=== PATIENT | male | born 1945 | race Caucasian/White ===

== ENCOUNTER 2020-09-14 12:43 | Emergency (ER) | payer MEDICARE, OTHER ==
[~2020-09-14] VITALS: Ht 175.3 cm; Wt 72.6 kg
--- NOTE | 2020-09-14 12:58 | ED General ---
General Chief Complaint: Fever-Adult/Adol Stated Complaint: DIARRHEA | FEVER | CHILLS | COUGH | NAUSEA History of Present Illness Date Seen by Provider: Sep 14, 2020 Time Seen by Provider: 12:56 Initial Comments 74-year-old male presents with fever, chills, cough, nausea, diarrhea. Patient reports that he has had diarrhea for 4 days. Feels like his symptoms are now moving little bit to his chest. Patient had a [place] shot in March of both doses. Reports that there are her individuals that are positive for coronavirus in his household. Patient reports that he is immunocompromised with a kidney transplant 5 years ago. He denies any shortness of breath. No other systemic complaints Allergies and Home Medications Allergies Coded Allergies: oxycodone (Verified Allergy, Unknown, 09/14/20) Home Medications Ondansetron 4 Mg Tab.rapdis, 4 MG PO Q6H PRN for NAUSEA/VOMITING Prescribed by: GABRIEL PERKINS on 09/14/20 1401 Patient Home Medication List Home Medication List Reviewed: Yes Review of Systems Review of Systems Constitutional: chills, fever, malaise EENTM: no symptoms reported Respiratory: cough; No short of breath Cardiovascular: No chest pain, No palpitations Gastrointestinal: No abdominal pain; diarrhea, nausea Genitourinary: see HPI Musculoskeletal: no symptoms reported Skin: no symptoms reported Psychiatric/Neurological: No Symptoms Reported Hematologic/Lymphatic: See HPI Immunological/Allergic: see HPI, transplant Physical Exam Vital Signs Vital Signs - First Documented 09/14/20 12:55 Temp 36.5 Pulse 65 Resp 18 B/P (MAP) 93/61 (72) Pulse Ox 98 O2 Delivery Room Air Capillary Refill : Height, Weight, BMI Height: '" Weight: lbs. oz. 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 Skin: Normal Color, Warm/Dry Focused Exam Lactate Level 09/14/20 13:01: Lactic Acid Level 2.03*H Lactic Acid Level Laboratory Tests Test 09/14/20 13:01 Lactic Acid Level 2.03 MMOL/L (0.50-2.00) *H Progress/Results/Core Measures Suspected Sepsis SIRS Temperature: Pulse: Respiratory Rate: Laboratory Tests 09/14/20 13:01: White Blood Count 5.4 Blood Pressure / Mean: 09/14/20 13:01: Lactic Acid Level 2.03*H Laboratory Tests 09/14/20 13:01: Creatinine 1.47H, Platelet Count 275, Total Bilirubin 0.2 Results/Orders Lab Results Laboratory Tests Test 09/14/20 13:01 Range/Units White Blood Count 5.4 4.3-11.0 10^3/uL Red Blood Count 4.52 4.35-5.85 10^6/uL Hemoglobin 11.9 L 13.3-17.7 G/DL Hematocrit 38 L 40-54 % Mean Corpuscular Volume 83 80-99 FL Mean Corpuscular Hemoglobin 26 25-34 PG Mean Corpuscular Hemoglobin Concent 32 32-36 G/DL Red Cell Distribution Width 15.5 H 10.0-14.5 % Platelet Count 275 130-400 10^3/uL Mean Platelet Volume 9.2 7.4-10.4 FL Immature Granulocyte % (Auto) 0 % Neutrophils (%) (Auto) 53 42-75 % Lymphocytes (%) (Auto) 35 12-44 % Monocytes (%) (Auto) 11 0-12 % Eosinophils (%) (Auto) 0 0-10 % Basophils (%) (Auto) 0 0-10 % Neutrophils # (Auto) 2.9 1.8-7.8 X 10^3 Lymphocytes # (Auto) 1.9 1.0-4.0 X 10^3 Monocytes # (Auto) 0.6 0.0-1.0 X 10^3 Eosinophils # (Auto) 0.0 0.0-0.3 10^3/uL Basophils # (Auto) 0.0 0.0-0.1 10^3/uL Immature Granulocyte # (Auto) 0.0 0.0-0.1 10^3/uL Sodium Level 133 L 135-145 MMOL/L Potassium Level 4.5 3.6-5.0 MMOL/L Chloride Level 100 98-107 MMOL/L Carbon Dioxide Level 22 21-32 MMOL/L Anion Gap 11 5-14 MMOL/L Blood Urea Nitrogen 17 7-18 MG/DL Creatinine 1.47 H 0.60-1.30 MG/DL Estimat Glomerular Filtration Rate 47 BUN/Creatinine Ratio 12 Glucose Level 124 H 70-105 MG/DL Lactic Acid Level 2.03 *H 0.50-2.00 MMOL/L Calcium Level 8.8 8.5-10.1 MG/DL Corrected Calcium 9.0 8.5-10.1 MG/DL Total Bilirubin 0.2 0.1-1.0 MG/DL Aspartate Amino Transf (AST/SGOT) 50 H 5-34 U/L Alanine Aminotransferase (ALT/SGPT) 46 0-55 U/L Alkaline Phosphatase 86 40-136 U/L Total Protein 6.8 6.4-8.2 GM/DL Albumin 3.8 3.2-4.5 GM/DL Lipase 41 8-78 U/L My Orders Orders - PERKINS,GABRIEL L DO Cbc With Automated Diff (09/14/20 12:59) Comprehensive Metabolic Panel (09/14/20 12:59) Lactic Acid Analyzer (09/14/20 12:59) Lipase (09/14/20 12:59) Ua Culture If Indicated (09/14/20 12:59) Crp Fs (09/14/20 12:59) Covid 19 Inhouse Test (09/14/20 12:59) Acute Abd Series (09/14/20 12:59) Ondansetron Injection (Zofran Injectio (09/14/20 13:00) Lactated Ringers (Lr 1000 Ml Iv Solution (09/14/20 12:59) Famotidine Injection (Pepcid Injection) (09/14/20 12:59) Medications Given in ED Current Medications Medications Dose Ordered Sig/Corry Route Start Time Stop Time Status Last Admin Dose Admin Ondansetron HCl 4 mg ONCE ONCE IVP 09/14/20 13:00 09/14/20 13:03 DC 09/14/20 13:09 4 MG Vital Signs/I&O 09/14/20 09/14/20 12:55 14:32 Temp 36.5 Pulse 65 63 Resp 18 18 B/P (MAP) 93/61 (72) 105/78 Pulse Ox 98 97 O2 Delivery Room Air Room Air Capillary Refill : Progress Note : Progress Note Patient with likely Covid 19 infection. Patient's vital signs and labs are stable. At this time there is no indication for admission. He should drink plenty of fluids, get plenty of rest. Follow-up with his primary care provider in a couple days for recheck of today's symptoms. Return the ER as needed. Patient is Covid test is pending at discharge and we will call him with result. Diagnostic Imaging Diagonstic Imaging: Xray Plain Films/CT/US/NM/MRI: chest, abdomen Comments CUTE ABD SERIES INDICATION: Nausea, vomiting, diarrhea, cough. FINDINGS: Postsurgical changes in the chest are present. The heart size is enlarged, but no overt failure pattern or vascular congestion. Vascular stenting in the left arm noted. No effusion or pneumothorax. There are clips in the right pelvis. The bowel gas pattern is normal. The fecal load is not pathologic. No air-fluid levels or free gas. IMPRESSION: Upper limits heart size and post-interventional changes as described, but no acute appearing abnormalities identified. Departure Impression Primary Impression: Viral syndrome Disposition: 01 HOME, SELF-CARE Condition: Stable Departure-Patient Inst. Referrals: NO,LOCAL PHYSICIAN (PCP/Family) Primary Care Physician Patient Instructions: COVID-19 (DC), Viral Syndrome (DC) Add. Discharge Instructions: Drink plenty of fluids and get plenty rest Return to the ER if you develop shortness of breath or other concern Follow-up with your primary care provider and proximally 1 week for recheck of today's symptoms or sooner if symptoms continue to worsen All discharge instructions reviewed with patient and/or family. Voiced understanding. Scripts Ondansetron (Ondansetron Odt) 4 Mg Tab.rapdis 4 MG PO Q6H PRN for NAUSEA/VOMITING, #20 TAB 0 Refills Prov: GABRIEL PERKINS DO 09/14/20 GABRIEL PERKINS DO Sep 14, 2020 12:58
[2020-09-14] MEDS ORDERED: FAMOTIDINE 20MG/2ML IV (PEPCID) IV STA (12:59)
[2020-09-14] MEDS ORDERED: LACTATED RINGERS 1,000 ML IV STA (12:59)
[2020-09-14] MEDS ORDERED: ONDANSETRON 4 MG/2 ML (SDV) Z0FRAN IVP ONE (13:00)
[2020-09-14 13:10] LABS: BASOPHILS % (AUTO) 0 % (0-10); EOSINOPHILS % (AUTO) 0 % (0-10); HEMATOCRIT 38 % (40-54); HEMOGLOBIN 11.9 G/DL (13.3-17.7); LYMPHOCYTES % (AUTO) 35 % (12-44); MEAN CORPUSCULAR HEMOGLOBIN 26 PG (25-34); MEAN CORPUSCULAR HGB CONC 32 G/DL (32-36); MEAN CORPUSCULAR VOLUME 83 FL (80-99); MEAN PLATELET VOLUME 9.2 FL (7.4-10.4); MONOCYTES % (AUTO) 11 % (0-12); NEUTROPHILS % (AUTO) 53 % (42-75); PLATELET COUNT 275 10^3/uL (130-400); WHITE BLOOD COUNT 5.4 10^3/uL (4.3-11.0)
[2020-09-14 13:11] LABS: LYMPHOCYTES # (AUTO) 1.9 X 10^3 (1.0-4.0); MONOCYTES # (AUTO) 0.6 X 10^3 (0.0-1.0); NEUTROPHILS # (AUTO) 2.9 X 10^3 (1.8-7.8)
[2020-09-14 13:26] LABS: ALBUMIN 3.8 GM/DL (3.2-4.5); BILIRUBIN,TOTAL 0.2 MG/DL (0.1-1.0); CALCIUM 8.8 MG/DL (8.5-10.1); CREATININE SERUM 1.47 MG/DL (0.60-1.30); POTASSIUM 4.5 MMOL/L (3.6-5.0); TOTAL PROTEIN 6.8 GM/DL (6.4-8.2)
--- NOTE | 2020-09-14 13:50 | Diagnostic Imaging Report ---
INDICATION: Nausea, vomiting, diarrhea, cough. FINDINGS: Postsurgical changes in the chest are present. The heart size is enlarged, but no overt failure pattern or vascular congestion. Vascular stenting in the left arm noted. No effusion or pneumothorax. There are clips in the right pelvis. The bowel gas pattern is normal. The fecal load is not pathologic. No air-fluid levels or free gas. IMPRESSION: Upper limits heart size and post-interventional changes as described, but no acute appearing abnormalities identified. Dictated by: Dictated on workstation # [id number]
[2020-09-14] MEDS ORDERED: ONDA4TAB11 PO (14:01)
[2020-09-14 14:32] VITALS: BP 105/78
== END 2020-09-14 14:35 | disposition home or self-care (01) ==
LOC: ER FS 12:47
DX: U07.1 COVID-19 (principal)
CPT/HCPCS: 36415; 74022; 80053; 83605; 83690; 85025; 86141; 87636

== ENCOUNTER 2020-09-18 18:56 | Emergency (ER) | payer MEDICARE ==
[~2020-09-18] VITALS: Ht 179 cm; Wt 72.6 kg
[~2020-09-18 18:56] MED LIST: ONDA4TAB11 PO
[2020-09-18] MEDS ORDERED: NS IV 1000 ML 1,000 ML IV SCH (19:15)
[2020-09-18] MEDS ORDERED: ONDANSETRON 4 MG/2 ML (SDV) Z0FRAN IVP ONE (19:15)
--- NOTE | 2020-09-18 19:20 | ED General ---
General Chief Complaint: Abdominal/GI Problems Stated Complaint: VOMITING, DIARRHEA, CHILLS, COVID POSITIVE Source of Information: Patient Exam Limitations: No Limitations History of Present Illness Date Seen by Provider: Sep 18, 2020 Time Seen by Provider: 19:05 Initial Comments Patient is a 74-year-old renal transplant patient, 5 years, who presents to the emergency department with a chief complaint of abdominal pain, nausea, vomiting, diarrhea. Patient states that he is Covid positive was diagnosed almost 2 weeks ago. He states that for the last 3 or 4 days he has been getting sicker. Today he had worsening diarrhea and vomiting. He is taken some Zofran without any relief of symptoms. He states he is not been running fever. He reports feeling like he might pass out and that his blood pressure has been low today. He states he had blood pressures in the 80s systolic up to 130 systolic. He feels generally weak. He is Covid vaccinated, got Moderna vaccination in February 2020. Patient denies chest pain, shortness of breath. No sore throat, runny nose or congestion. Follows with [facility] for his renal transplant. All other review of systems reviewed and negative except as stated above. Timing/Duration: 3-4 Days Severity: Moderate Modifying Factors: improves with Immobilization; worse with Movement Associated Systoms: Malaise, Nausea/Vomiting, Weakness Allergies and Home Medications Allergies Coded Allergies: oxycodone (Verified Allergy, Unknown, 09/14/20) Home Medications Ondansetron 4 Mg Tab.rapdis, 4 MG PO Q6H PRN for NAUSEA/VOMITING Prescribed by: GABRIEL PERKINS on 09/14/20 1401 Promethazine HCl 25 Mg Tablet, 25 MG PO Q6H PRN for NAUSEA/VOMITING Prescribed by: DANIELLE STOCK on 09/18/20 2136 Patient Home Medication List Home Medication List Reviewed: Yes Review of Systems Review of Systems Constitutional: see HPI EENTM: no symptoms reported Respiratory: no symptoms reported Cardiovascular: no symptoms reported Gastrointestinal: abdominal pain, diarrhea, loss of appetite, nausea, vomiting Genitourinary: no symptoms reported Musculoskeletal: no symptoms reported Skin: no symptoms reported Psychiatric/Neurological: Weakness (generalized), Other (feels near syncopal;) All Other Systems Reviewed Negative Unless Noted: Yes Past Qfeahzr-Xsbaqe-Lpwvvo Hx Past Medical History Surgery/Hospitalization HX: Kidney transplant 5 years ago Physical Exam Vital Signs Vital Signs - First Documented 09/18/20 19:01 Temp 36.6 Pulse 75 Resp 20 B/P (MAP) 101/68 (79) Pulse Ox 100 O2 Delivery Room Air Capillary Refill : Height, Weight, BMI Height: '" Weight: lbs. oz. kg; 23.00 BMI Method: General Appearance: WD/WN, Mild Distress (nausea, dry heaving) Eyes: Bilateral Eye Normal Inspection, Bilateral Eye PERRL HEENT: PERRL/EOMI Neck: Normal Inspection Respiratory: Lungs Clear, Normal Breath Sounds, No Accessory Muscle Use, No Respiratory Distress Cardiovascular: Regular Rate, Rhythm (60's), Normal Peripheral Pulses Gastrointestinal: Non Tender, Soft, Abnormal Bowel Sounds (hyperactive) Extremity: Normal Capillary Refill, Normal Inspection, Normal Range of Motion, Non Tender, No Calf Tenderness Neurologic/Psychiatric: Alert, Oriented x3, No Motor/Sensory Deficits, Normal 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, 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 Skin: Normal Color, Warm/Dry Focused Exam Lactate Level 09/18/20 19:18: Lactic Acid Level 1.82 Lactic Acid Level Laboratory Tests Test 09/18/20 19:18 Lactic Acid Level 1.82 MMOL/L (0.50-2.00) Progress/Results/Core Measures Suspected Sepsis SIRS Temperature: Pulse: Respiratory Rate: Laboratory Tests 09/18/20 19:18: White Blood Count 8.0 Blood Pressure / Mean: 09/18/20 19:18: Lactic Acid Level 1.82 Laboratory Tests 09/18/20 19:18: Creatinine 1.47H, INR Comment 1.0, Platelet Count 273, Total Bilirubin 0.5 Results/Orders Lab Results Laboratory Tests Test 09/18/20 19:18 09/18/20 19:38 Range/Units White Blood Count 8.0 4.3-11.0 10^3/uL Red Blood Count 5.00 4.30-5.52 10^6/uL Hemoglobin 12.8 L 13.3-17.7 g/dL Hematocrit 41 40-54 % Mean Corpuscular Volume 82 80-99 fL Mean Corpuscular Hemoglobin 26 25-34 pg Mean Corpuscular Hemoglobin Concent 31 L 32-36 g/dL Red Cell Distribution Width 14.8 H 10.0-14.5 % Platelet Count 273 130-400 10^3/uL Mean Platelet Volume 9.4 9.0-12.2 fL Immature Granulocyte % (Auto) 1 % Neutrophils (%) (Auto) 60 42-75 % Lymphocytes (%) (Auto) 30 12-44 % Monocytes (%) (Auto) 9 0-12 % Eosinophils (%) (Auto) 1 0-10 % Basophils (%) (Auto) 0 0-10 % Neutrophils # (Auto) 4.8 1.8-7.8 10^3/uL Lymphocytes # (Auto) 2.4 1.0-4.0 10^3/uL Monocytes # (Auto) 0.7 0.0-1.0 10^3/uL Eosinophils # (Auto) 0.1 0.0-0.3 10^3/uL Basophils # (Auto) 0.0 0.0-0.1 10^3/uL Immature Granulocyte # (Auto) 0.1 0.0-0.1 10^3/uL Prothrombin Time 13.4 12.2-14.7 SEC INR Comment 1.0 0.8-1.4 Activated Partial Thromboplast Time 34 24-35 SEC Sodium Level 134 L 135-145 MMOL/L Potassium Level 4.2 3.6-5.0 MMOL/L Chloride Level 99 98-107 MMOL/L Carbon Dioxide Level 22 21-32 MMOL/L Anion Gap 13 5-14 MMOL/L Blood Urea Nitrogen 17 7-18 MG/DL Creatinine 1.47 H 0.60-1.30 MG/DL Estimat Glomerular Filtration Rate 47 BUN/Creatinine Ratio 12 Glucose Level 106 H 70-105 MG/DL Lactic Acid Level 1.82 0.50-2.00 MMOL/L Calcium Level 9.5 8.5-10.1 MG/DL Corrected Calcium 9.6 8.5-10.1 MG/DL Total Bilirubin 0.5 0.1-1.0 MG/DL Aspartate Amino Transf (AST/SGOT) 51 H 5-34 U/L Alanine Aminotransferase (ALT/SGPT) 45 0-55 U/L Alkaline Phosphatase 79 40-136 U/L C-Reactive Protein High Sensitivity 1.62 H 0.00-0.50 MG/DL Total Protein 7.8 6.4-8.2 GM/DL Albumin 3.9 3.2-4.5 GM/DL Procalcitonin 0.10 H <0.10 NG/ML Urine Color YELLOW Urine Clarity CLEAR Urine pH 8.5 5-9 Urine Specific [place] 1.015 L 1.016-1.022 Urine Protein TRACE H NEGATIVE Urine Glucose (UA) NEGATIVE NEGATIVE Urine Ketones NEGATIVE NEGATIVE Urine Nitrite NEGATIVE NEGATIVE Urine Bilirubin NEGATIVE NEGATIVE Urine Urobilinogen 0.2 < = 1.0 MG/DL Urine Leukocyte Esterase NEGATIVE NEGATIVE Urine RBC (Auto) NEGATIVE NEGATIVE Urine RBC NONE /HPF Urine WBC NONE /HPF Urine Crystals PRESENT H /LPF Urine Amorphous Sediment FEW LALO PHOSPHATE H /LPF Urine Bacteria NEGATIVE /HPF Urine Casts NONE /LPF Urine Mucus NEGATIVE /LPF Urine Culture Indicated NO My Orders Orders - DANIELLE STOCK MD Blood Culture (09/18/20 19:14) Sputum Culture (09/18/20 19:14) Urinalysis (09/18/20 19:14) Urine Culture (09/18/20 19:14) Protime With Inr (09/18/20 19:14) Partial Thromboplastin Time (09/18/20 19:14) Chest 1 View, Ap/Pa Only (09/18/20 19:14) Ed Iv/Invasive Line Start (09/18/20 19:14) Ed Iv/Invasive Line Start (09/18/20 19:14) Vital Signs Adult Sepsis Patie Q15M (09/18/20 19:14) O2 (09/18/20 19:14) Remove Rings In Anticipation O (09/18/20 19:14) Lactic Acid Analyzer (09/18/20 19:14) Ondansetron Injection (Zofran Injectio (09/18/20 19:15) Ns Iv 1000 Ml (Sodium Chloride 0.9%) (09/18/20 19:15) Hs C Reactive Protein (09/18/20 19:14) Procalcitonin (Pct) (09/18/20 19:14) Ondansetron Injection (Zofran Injectio (09/18/20 19:29) Promethazine Injection (Phenergan Injec (09/18/20 20:45) Ns Iv 500 Ml (Sodium Chloride 0.9%) (09/18/20 21:00) Medications Given in ED Current Medications Medications Dose Ordered Sig/Corry Route Start Time Stop Time Status Last Admin Dose Admin Ondansetron HCl 8 mg ONCE ONCE IVP 09/18/20 19:15 09/18/20 19:16 DC 09/18/20 19:31 8 MG Promethazine HCl 25 mg ONCE ONCE IVP 09/18/20 20:45 09/18/20 20:46 DC 09/18/20 20:56 25 MG Vital Signs/I&O 09/18/20 19:01 Temp 36.6 Pulse 75 Resp 20 B/P (MAP) 101/68 (79) Pulse Ox 100 O2 Delivery Room Air Capillary Refill : Progress Note : Time: 20:42 Progress Note Reevaluated the patient, he states his nausea is starting to "kick up again". He has had 8 of Zofran. He has had a liter of fluids. Labs have been reviewed and are stable/at his baseline. Patient will be given another 500 cc of normal saline with 25 mg of Phenergan. He is not hypoxic. His blood pressure is good. He is not tachycardic. He has no concerning sepsis findings at this point. 2151 Feels better and ready for discharge Diagnostic Imaging Diagonstic Imaging: Xray Plain Films/CT/US/NM/MRI: chest Comments [facility] [place], [place] NAME: SOLIS GUTIERRES [facility] REC#: [id number] PT STATUS: REG ER : 1945 PHYSICIAN: DANIELLE STOCK MD ADMIT DATE: 09/18/20/ER Draft Date of Exam:09/18/20 CHEST 1 VIEW, AP/PA ONLY EXAMINATION: Chest radiograph, portable AP view. DATE: 09/18/2020 7:55 PM INDICATION: 74-year-old male, sepsis. COMPARISON: Acute abdominal series radiographs September 14, 2020. FINDINGS: Stable overall appearance of the cardiomediastinal silhouette. There is no identified pneumothorax. There is no large pleural effusion. There is no identified focal airspace consolidation. There is a stent graft overlying the left proximal upper extremity. IMPRESSION: No identified acute cardiopulmonary abnormality. Dictated on workstation # [id number] Dict: [id number] Trans: 09/18/[address] [place] [address] [id number] Interpreted by: JED PETTY MD Electronically signed by: Departure Impression Primary Impression: COVID-19 Additional Impression: Gastroenteritis Disposition: 01 HOME, SELF-CARE Condition: Stable Departure-Patient Inst. Decision time for Depature: 21:36 Referrals: NO,LOCAL PHYSICIAN (PCP/Family) Primary Care Physician Patient Instructions: COVID-19 (DC) Add. Discharge Instructions: Drink plenty of fluids to stay well-hydrated. You can try [id number] antidiarrheal medication to try and slow down your diarrhea. I have sent a prescription to your pharmacy for Phenergan. This medication can make you sleepy. Take this every 6 hours as needed for nausea and vomiting. Follow-up with your primary care physician. Come back to the emergency d epartment for any new, concerning or emergent complaints. Scripts Promethazine HCl (Promethazine Tablet) 25 Mg Tablet 25 MG PO Q6H PRN for NAUSEA/VOMITING, #15 TAB Prov: DANIELLE STOCK MD 09/18/20 DANIELLE STOCK MD Sep 18, 2020 19:20
[2020-09-18] MEDS ORDERED: ONDANSETRON 4 MG/2 ML (SDV) Z0FRAN ONE (19:29)
[2020-09-18 19:34] LABS: BASOPHILS % (AUTO) 0 % (0-10); EOSINOPHILS # (AUTO) 0.1 10^3/uL (0.0-0.3); EOSINOPHILS % (AUTO) 1 % (0-10); HEMATOCRIT 41 % (40-54); HEMOGLOBIN 12.8 g/dL (13.3-17.7); LYMPHOCYTES # (AUTO) 2.4 10^3/uL (1.0-4.0); LYMPHOCYTES % (AUTO) 30 % (12-44); MEAN CORPUSCULAR HEMOGLOBIN 26 pg (25-34); MEAN CORPUSCULAR HGB CONC 31 g/dL (32-36); MEAN CORPUSCULAR VOLUME 82 fL (80-99); MEAN PLATELET VOLUME 9.4 fL (9.0-12.2); MONOCYTES # (AUTO) 0.7 10^3/uL (0.0-1.0); MONOCYTES % (AUTO) 9 % (0-12); NEUTROPHILS # (AUTO) 4.8 10^3/uL (1.8-7.8); NEUTROPHILS % (AUTO) 60 % (42-75); PLATELET COUNT 273 10^3/uL (130-400)
[2020-09-18 19:45] LABS: BILIRUBIN,URINE NEGATIVE (NEGATIVE); CLARITY,URINE CLEAR; COLOR,URINE YELLOW; GLUCOSE, URINE (UA) NEGATIVE (NEGATIVE); KETONES,URINE NEGATIVE (NEGATIVE); LEUKOCYTE ESTERASE ,URINE NEGATIVE (NEGATIVE); NITRITE,URINE NEGATIVE (NEGATIVE); PH,URINE 8.5 (5-9); PROTEIN,URINE TRACE (NEGATIVE)
[2020-09-18 19:55] LABS: AMORPHOUS SEDIMENT,UR FEW AMOR PHOSPHATE /LPF; BACTERIA,URINE NEGATIVE /HPF
[2020-09-18 20:03] LABS: PROTHROMBIN TIME PATIENT 13.4 SEC (12.2-14.7)
[2020-09-18 20:04] LABS: ALBUMIN 3.9 GM/DL (3.2-4.5); BILIRUBIN,TOTAL 0.5 MG/DL (0.1-1.0); CALCIUM 9.5 MG/DL (8.5-10.1); CREATININE SERUM 1.47 MG/DL (0.60-1.30); POTASSIUM 4.2 MMOL/L (3.6-5.0); TOTAL PROTEIN 7.8 GM/DL (6.4-8.2)
--- NOTE | 2020-09-18 20:06 | Diagnostic Imaging Report ---
EXAMINATION: Chest radiograph, portable AP view. DATE: 09/18/2020 7:55 PM INDICATION: 74-year-old male, sepsis. COMPARISON: Acute abdominal series radiographs September 14, 2020. FINDINGS: Stable overall appearance of the cardiomediastinal silhouette. There is no identified pneumothorax. There is no large pleural effusion. There is no identified focal airspace consolidation. There is a stent graft overlying the left proximal upper extremity. IMPRESSION: No identified acute cardiopulmonary abnormality. Dictated by: Dictated on workstation # [id number]
[2020-09-18] MEDS ORDERED: PROMETHAZINE INJ 25 MG/ML (PHENERGAN) AMP IVP ONE (20:45)
[2020-09-18] MEDS ORDERED: NS IV 500 ML 500 ML IV SCH (21:00)
[2020-09-18] MEDS ORDERED: PROM25TA14 PO (21:36)
[2020-09-18 21:55] VITALS: BP 102/64
--- OUTSIDE RECORDS SUMMARY | 2020-09-23 10:40 | XMS REPORT | Clinical Summary ---
Author Author [facility] Organization [facility] Address Unknown Phone Unavailable Care Team Providers [facility] Name Role Phone PCP Unavailable Allergies Not on File Medications Not on file Active Problems Not on file Social History Date Tobacco Use Types Packs/Day Years Used Never Assessed Sex Assigned at Date Recorded Not on file Last Filed Vital Signs Not on file Plan of Treatment Not on file Results Not on filefrom Last 3 Months
--- OUTSIDE RECORDS SUMMARY | 2020-09-23 10:41 | XMS REPORT | Clinical Summary ---
Author Author [facility] Organization [facility] Address Unknown Phone Unavailable Care Team Providers Care Night Monitor Name Role Phone Roberta Huang RN Unavailable Unavailable Susie Recinos Unavailable Unavailable Franklyn Dumont RN 2 Unavailable Stanford Hickman DO Unavailable Johanne Veliz MA Unavailable Unavailable Anny Gonzalez RN Unavailable Unavailable Jose Manuel Oseguera MD Unavailable Unavailable Maxine Vallejo PARTS ORDER AND STOCK CLERK-PEDIATRIC SPORTS MEDICINE SPECIALIST Unavailable Taran Greenfield MD Unavailable Gladys Fragoso MD Unavailable Mar Pisano MA Unavailable Unavailable Jackie Ellis PARTS ORDER AND STOCK CLERK-PEDIATRIC SPORTS MEDICINE SPECIALIST Unavailable [phone] Maggie Hagan Unavailable Unavailable Keanu Manzano MD Unavailable Rosario Bass RN Unavailable Unavailable Ciara Ornelas Unavailable Unavailable Nisa Deluna RN Unavailable Unavailable Carmen Padilla MA Unavailable Unavailable Jacob Chavez MD PCP Stanford Hickman [place] [id number] Source Comments Some departments are not documenting in the electronic medical record. If you d o not see the information that you expected, contact Release of Information in [facility] Information Management department at [phone] for further assistan ce in locating additional records.[facility] Allergies Comments Active Allergy Reactions Severity Noted Date Pt was having muscle pain, joint pain and some nausea. Atorvastatin JOINT PAIN Medium 09/11/2020 Severe headaches Oxiconazole HEADACHE Low 04/11/2015 Medications End Date Status Medication Sig Dispensed Refills Start Date Active finasteride (PROSCAR) 5 Take 5 mg by 0 mg tablet mouth daily. Active HYDROcodone/acetaminophen Take 1 Tab by 0 (+) (NORCO) 10/325 mg mouth every 6 tablet hours as needed for Pain Active Efnck-2-QWA-EPA-Fish Oil Take 1,000 mg 0 06/08 (FISH OIL) 1,000 mg (120 by mouth 7 mg-180 mg) cap twice daily. Active aspirin 81 mg chewable Chew 1 Tab by 90 Tab 3 0 tablet mouth daily. 7 Take with food. Resume taking 06/21/16 Additional Information Patient taking differently: 81 mg Oral DAILY, (No instructions reported), Informant: Self, Reported on 12/12/2018 Active calcium carbonate/vitamin Take 1 tablet 180 tablet 1 D-3 (CALCIUM 500+D) 1250 by mouth 7 mg/200 unit tablet daily. Calcium Carb 1250mg delivers 500mg elemental Ca Additional Information Patient taking differently: 1 tablet Oral TWICE DAILY, Calcium Carb 1250mg delivers 500mg elemental Ca, Informant: Self, Reported on 11/01/2018 Active fluticasone (FLONASE) 50 Apply 1 spray 0 06/27 mcg/actuation nasal spray to each 8 nostril as directed daily as needed. Active famotidine (PEPCID) 20 mg Take one 180 tablet 3 tablet tablet by 9 mouth twice daily. Active acetaminophen (TYLENOL) Take two 200 tablet 0 500 mg tablet tablets by 9 mouth every 6 hours while awake. Max of 4,000 mg of acetaminophen in 24 hours. Active albuterol sulfate (PROAIR Inhale 2 0 HFA) 90 mcg/actuation puffs by aerosol inhaler mouth into the lungs every 6 hours as needed for Wheezing or Shortness of Breath. Shake well before use. Active magnesium oxide (MAG-OX) Take one 180 tablet 3 0 400 mg (241.3 mg tablet by 0 magnesium) tablet mouth daily. Active nitroglycerin (NITROSTAT) Place one 25 tablet 3 0.4 mg tablet tablet under 0 tongue every 5 minutes as needed for Chest Pain. Max of 3 tablets, call 911. 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 Active predniSONE (DELTASONE) 5 Take one 90 tablet 0 0 mg tablet tablet by 1 mouth daily with breakfast. Active icosapent ethyL (VASCEPA) Take two 120 capsule 3 1 gram capsule capsules by 1 mouth twice daily with meals. Active clindamycin (CLINDA-DERM) Apply 60 mL 11 1 % topical solution topically to 1 face and scalp every morning Active fenofibrate Take one 90 tablet 3 nanocrystallized (TRICOR) tablet by 1 145 mg tablet mouth daily. Take with food. Active everolimus Take three 540 tablet 3 (immunosuppressive) tablets by 1 (ZORTRESS) 0.5 mg tablet mouth twice daily. Active lisinopriL (ZESTRIL) 20 Take one 90 tablet 3 mg tablet tablet by 1 mouth daily. Active baclofen (LIORESAL) 10 mg Take one 270 tablet 1 tabletIndications: Neck tablet by 1 pain, Myalgia, other site mouth three times daily as needed. Active sotaloL (BETAPACE) 80 mg Take one 270 tablet 3 0 tablet tablet by 1 mouth twice daily. Active isosorbide mononitrate ER Take one 30 tablet 3 (IMDUR) 30 mg tablet tablet by 1 mouth every morning. Active tacrolimus (PROGRAF) 0.5 Take two 180 capsule 3 0 mg capsule capsules by 1 mouth daily. 09/01/2020 Discontinued atorvastatin (LIPITOR) 40 Take one 90 tablet 3 mg tablet tablet by 0 mouth daily. 09/09/2020 Discontinued tacrolimus (PROGRAF) 0.5 Take one 90 capsule 3 0 mg capsule capsule by 1 mouth daily. 08/28/2020 Discontinued (Patient's Thapa ce) sotaloL (BETAPACE) 80 mg Take 1.5 270 tablet 3 0 6/24/202 tablet tablets by 1 mouth twice daily. 09/11/2020 Discontinued (Side effects) atorvastatin (LIPITOR) 40 Take one 90 tablet 3 mg tabletIndications: tablet by 1 Mixed hyperlipidemia mouth daily. 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 Originally this caused functional impai rment and this is much better off of the flecanide and on sotalol. L ast Assessment & Plan: Formatting of this note might be differ ent from the original. There is no need for further treatment at this time. Chronic neck pain 04/27/2019 Overview: Formatting of this note might be differ ent from the original. This is most likely due to degenerative osteoarthritis. While he has not had recent imaging of his cervical spin e, CT scan of the trunk and abdomen showed degenerative changes with narrow ed disc spaces and some osteophytes L ast Assessment & Plan: Formatting of this note is different fr om the original. We will try topical lidocaine patches. 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 Encounter Medications Medications lidocaine (LIDODERM) 5 % topical patch Sig: Apply 1 patch to the back of your neck for up to 12 hours each day. Dispense: 90 patch Refill: 3 Patient Instructions Please go to the [facility] website, s earcj for core strengthening exercises and do them daily to help wit h your sciatica. In one month, please call Ammon Rivera LPN my clinic nurse at [phone] with a status report or sooner if you h ave any questions or concerns. Or you may contact me through [employer] If the neck pain is not improved we may need to consider occipital nerve block. Respiratory infection 03/01/2019 A-fib 02/28/2019 A-V fistula 01/10/2019 Overview: Formatting of this note might be differ ent from the original. L brachial artery-for HD Sensorineural hearing loss (SNHL) of both ears 12/21 Atrial fibrillation 11/12/2018 Hyponatremia 11/03/2018 Nausea and vomiting 11/03/2018 Headache 11/03/2018 Diarrhea 11/03/2018 Atrial fibrillation with rapid ventricular response 11/01/2018 Osteopenia of multiple sites 10/04/2016 PVC's (premature ventricular contractions) 7 Overview: Formatting of this note might be differ ent from the original. 09/20/16 Holter: Ambulatory ECG Monitori ng for approximately 48 hours is abnormal demonstrating 1) 0.2% PVC lety en (2 morphologies, no VT); 2) 0.1% PAC burden; 3) non-sustained multifocal AT up to 22 seconds (114 bpm). The PVC burden is not particularly high. 10/21/16 Cardiac PET:Increased FDG uptak e involving the anterior apical and mid to basal lateral wall of the left v entricle compatible with mild myocarditis. 06/03/17 Cardiac PET: Improvement in FDG uptake about the anterior apical and mid to basal lateral wall of left v entricle, with the levels now equivocal between physiologic uptake ve rsus minimal acute myocarditis in appropriate clinical setting. Clinical and laboratory correlation is recommended. S/P kidney transplant 11/20/2015 S/p cadaver renal transplant 11/10/2015 Overview: Formatting of this note might be differ ent from the original. 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 R eports 05/2014 and underwent PLEX, chemo, and steroids (several rounds) an d had started dialysis within 1 month. HD with LAV graft. Continued t o make aprox. 3 L UOP/day prior to txp. Other PMH includes PAF, HLD, HTN Admit Creat.: 4.33 DC Creat : 1.95 Pre-txp. wt.: 73.2 kg DC wt.: 70.3 Date: 11/08/2015 Transpla nt Type: DCD - DDRT UNOS: [id number] ([id number]) 46F 5'6", 58.5 k g, BMI 20.8; anoxia PHS increased risk - CPR 99M +smoking >20yr Initia l/Peak/Terminal Creat. 1.07/1.4/1.3 Donor Wedge Bx: 95 glom, 15% glumerulos clerosis, minimal arterial/arteriolar damage, fibrosis, a nd mild focal chronic inflammation (< 5% of bx. area). cPRA: 0% KDPI: 6 7% CMV: D-/R- OR Note: donor left kidney wi th 2 renal arteries on aortic patch transplanted on right side. Double-J ureteral stent placed. CIT: 11H WIT: 20M Induction: Simulect, Cellcept, Solumedr ol. Immunosuppression: Triple (Prograf, Pre d, Myfortic) r/t ANCA vasculitis and Simulect Stent Removal: Need to schedule in appr ox. 6 weeks. Imaging/Pathology: None Post Op Course: Good renal allograft function with decline in Cr. (UOP slightly higher than pre-txp. UOP). Mild hyperkalemia - bactrim to be he ld at DC. Possibly start after clinic visit and l ab review on Tuesday (11/13). Immunosuppression 11/10/2015 Mild coronary artery disease 08/22/2015 Overview: Formatting of this note might be differ ent from the original. 09/18/15: Cath by Dr. Grimes: 1. Left main: Left main is a large ves dewayne arising from the left coronary cusp. It has no significant stenosis. It trifurcates into LAD, ramus intermedius and left circumflex. 2. LAD: LAD is a large vessel, wraps a round the apex, and is a type 3 configuration. It gives off 2 medium s ize diagonal branches, diagonal 1 and diagonal 2. Diagonal 1 takes off v sofiya proximally from the LAD and has 20% to 30% stenosis in the proximal por tion. Diagonal 2 arises in the midportion and has 30% to 40% stenosis in the proximal portion. 3. Ramus intermedius. Ramus intermediu s arises at the trifurcation from left main. It has 20% to 30% stenosis in the proximal portion. Otherwise, ramus bifurcates distally into 2 branch es. 4. Left circumflex: Left circumflex is a medium size vessel, which gives off OM2 branch in the midportion and ot herwise has no significant stenosis. 5. RCA: RCA is a large dominant vessel which has no significant stenosis in the proximal, mid and distal portion . Distally, RCA gives rise to PDA and PLV. PLV further gives off multipl e branches. Abnormal cardiovascular stress test 04/11/2015 Persistent atrial fibrillation Overview: Formatting of this note might be differ ent from the original. 09/18/15 ECHO: The LV size & systolic fu nction appear normal. The LA is moderately enlarged. LA size 4.3 cm. Mo derate MR is seen. The PA systolic pressure on this study is about 35 mm H g. 09/19/15 CATH: Normal coronary arteries with no significant stenosis. Normal LV and RV filling pressures. High cardi ac output. 06/07/16 TSH 0.850 08/26/16 ECHO: Normal left ventricular sy stolic function. EF~ 55%. Mildly dilated right ventricle with normal sys tolic function. Mild concentric left ventricular hypertrophy. Mild aortic, m itral and tricuspid regurgitation. Normal estimated peak systolic PA press ure of 28 mmHg. LA size 4.3 cm. 09/20/16 Holter: Ambulatory ECG Monitori ng for approximately 48 hours is abnormal demonstrating 1) 0.2% PVC lety en (2 morphologies, no VT); 2) 0.1% PAC burden; 3) non-sustained multifocal AT up to 22 seconds (114 bpm). The PVC burden is not particularly high. 10/21/16 ZioPatch: Ambulatory ECG Monito ring for approximately 14 days is abnormal demonstrating 1) predominantly sinus rhythm with average HR of 73 bpm; 2) <1% PVC burden although PVCs co rrelated with most triggered episodes -- 5145 total, occasional bige randall/trigeminy; 3) <1% PACs; 4) 31 non-sustained SVT episodes -- longest 1 0 seconds at 114 bpm, fastest 5 beats at 174 bpm and one episode correl ating with triggered episode; and 5) no NSVT 05/20/17 ECHO: Left ventricular systolic function is within normal limits. LVEF 65%. No significant valvular abnor malities. No pericardial effusion. Estimated peak systolic pulmonary arter y pressure is 25 mmHg. LA size 4.2 cm. Long history of PAF but in November 10 he was started on flecainide 100 twice daily. He was discharged and cam e back the next day in A. fib with RVR (he was discharged without any AV n ode meds). He was cardioverted and flecainide was increased to 150 twice d aily which he did not tolerate well. 2 months later he had 5 days of A. fib, this time on metoprolol and with a reasonable rate and he was adequately c ompensated. This went away on its own and he then reduced his flecainide to 100 twice daily because he felt so bad with a higher dose. (Multiple s ymptoms including significant loss of conjugate gaze) Essential hypertension Crescentic glomerulonephritis Bursitis of hip HLD (hyperlipidemia) History of renal calculi Overview: Formatting of this note might be differ ent from the original. 3 times-passed without intervention Resolved Problems Problem Noted Date Resolved Date Near syncope 10/05/2018 11/03/2018 Severe sepsis 02/22/2017 11/03/2018 ESRD (end stage renal disease) 11/08/2015 019 ESRD on hemodialysis 02/22/2017 Encounters Care Team Description Date Type Specialty Kathya Mcintosh LPN Follow Up (regarding statin) 09/11/2020 Telephone Cardiology Filomena Olea RN Follow-up Phone Call 09/10/2020 Telephone Cardiology Inan Gunn RN Labs Only 09/10/2020 Documentation Cardiology Jackie Gant, fleet dispatch manager Management (Tacrolimus) 09/09/2020 Telephone Transplant Surgery Jackie Gant RN BK viremia (Primary Dx) 09/09/2020 Orders Only Transplant Surgery Daniel Spence Hypercholesterolemia; Kidney replaced by transplant; Encounter for therapeutic drug monitoring; Encounter for long-term (current) use of high-risk medication; Urinary tract infection without hematuria, site unspecified; 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 Orders Only Transplant Surgery Teena Joseph, DEBORAH Persistent atrial fibrillation (HCC); Mixed hyperlipidemia; S/P kidney transplant; PVC's (premature ventricular contractions); Coronary artery disease involving [place] coronary artery of [place] heart without angina pectoris 09/01/2020 Orders Only Cardiology Kathya Mcintosh LPN Office Visit Follow Up (lab request) 09/01/2020 Telephone Cardiology Elisa Esteban APRN-PEDIATRIC SPORTS MEDICINE SPECIALIST Follow Up 08/28/2020 Office Visit Cardiology Adele Pichardo MD 08/28/2020 Orders Only Transplant Surgery Kathya Mcintosh LPN Lab Request (requested lipid profile) 08/28/2020 Telephone Cardiology 08/28/2020 Travel Alexei Bernabe MD Neck pain (Primary Dx); Myalgia, other site; Spondylosis of lumbar region without myelopathy or radiculopathy 08/21/2020 Office Visit Anesthesia Pain Telehealth 08/21/2020 Travel Inna Gunn, fleet dispatch manager Refill 08/14/2020 Refill Cardiology Jackie Gant RN Kidney replaced by transplant (Primary D x); Encounter for therapeutic drug monitoring; Encounter for long-term (current) use of high-risk medication; Urinary tract infection without hematuria, site unspecified; BK viremia; Hypercholesterolemia 07/31/2020 Orders Only Transplant Surgery Jackie Gant RN Hypertension 07/22/2020 Telephone Transplant Surgery Jackie Gant RN Kidney replaced by transplant (Primary D x); Encounter for therapeutic drug monitoring; Urinary tract infection without hematuria, site unspecified; Encounter for long-term (current) use of high-risk medication; BK viremia 07/18/2020 Orders Only Transplant Surgery Provider, Historical 07/16/2020 Orders Only Rheumatology Michelle Hooks 07/14/2020 Documentation Transplant Surgery Pat Up 07/10/2020 Documentation Pharmacy Jackie Gant RN 07/10/2020 Orders Only Transplant Surgery Michelle Hooks 07/10/2020 Documentation Transplant Surgery Jackie Gant RN 07/10/2020 Refill Transplant Surgery Clara Mclean 07/09/2020 Documentation Transplant Surgery Alexei Bernabe MD 07/03/2020 Hospital Encounter Alexei Bernabe MD 07/03/2020 Hospital Radiology Encounter 07/03/2020 Travel Michelle Hooks Financial/Insurance Questions 06/30/2020 Telephone Transplant Surgery Michelle Hooks 06/24/2020 Documentation Transplant Surgery Michelle Hooks 06/24/2020 Documentation Transplant Surgery from Last 3 Months Surgical History Surgery Date Site/Laterality Comments HX APPENDECTOMY 02/21/1971 - 02/21/1972 HERNIA REPAIR 02/21/1949 - Right 02/20/1950 HERNIA REPAIR 02/21/1974 - Left- mesh 02/20/1975 INNER EAR SURGERY 02/21/1983 - Right 02/21/1984 INNER EAR SURGERY 02/22/2008 - Left 02/20/2009 HAMMER TOE REPAIR left LAP CHOLECYSTECTOMY 02/21/1985 - 02/20/1986 KIDNEY STONE SURGERY NE CYSTO W/SIMPLE REMOVAL 12/21/2015 STONE & STENT KIDNEY DONATION 11/08/2015 Abdomen/Right TRANSPLANT KID ASTRID NON LIVING DONOR performed by Taran Greenfield MD at Main OR/Periop Medical devices from this surgery are i n the Implants section. PERCUTANEOUS CORONARY 09/18/2015 N/A Percutan eous Coronary Intervention performed by INTERVENTION - Larry Grimes MD at [facility] [employer] [facility] 09/19/2015 UPPER GASTROINTESTINAL 11/06/2018 N/A ESOPHAG OGASTRODUODENOSCOPY WITH BIOPSY - FLEXIBLE ENDOSCOPY bx duodenum performed by Kevin Cage MD at ENDO/GI BIOPSY 11/06/2018 N/A COLONOSCOPY WIT H BIOPSY - FLEXIBLE - random bx performed by Kevin Brink MD at END O/GI MOUTH SURGERY CARDIOVERSION 02/21/2018 - 02/20/2019 UMBILICAL ARTERIAL CATH - BEDSIDE NE LAPAROSCOPY SURG RPR 02/21/1974 - INITIAL INGUINAL HERNIA 02/20/1975 HX TONSILLECTOMY Medical History Medical History Date Comments ESRD (end stage renal disease) (HCC) Atrial fibrillation (HCC) HTN (hypertension) Crescentic glomerulonephritis Bursitis of hip HLD (hyperlipidemia) Anemia Nephrolithiasis 3 times-passed without inte rvention Essential hypertension ESRD on hemodialysis (HCC) PAF (paroxysmal atrial fibrillation) (HCC) History of renal calculi 3 times-passed without int ervention Mild coronary artery disease 08/22/2015 Anxiety Joint pain Cataract Chronic kidney disease Nausea Generalized headaches Heart murmur Pneumonia Heart valve disease Degenerative disc disease, cervical Degenerative disc disease, lumbar Degenerative disc disease, thoracic Family History Medical History Relation Name Comments Hypertension Brother Diabetes Type II Brother Melanoma Brother Cancer Father [place] Diabetes Father [place] Diabetes Type II Father [place] Hypertension Father [place] Alzheimer's Mother Felicita Coates Arthritis Mother Felicita Coates Relation Name Status Comments Brother Alive Brother Alive Father [place] Mother Felicita Coates Son Alive Social History Date Tobacco Use Types Packs/Day Years Used Quit: 04/11/1993 Former Smoker Cigarettes 1 30 Smokeless Tobacco: Never Used Tobacco Cessation: Counseling Given: Yes Drinks/Week oz/Week Comments Alcohol Use 0 Standard drinks or equivalent 0.0 1x/month-sonido No Sex Assigned at Date Recorded Male 06/14/2019 9:45 AM CDT Date Recorded COVID-19 Exposure Response 08/28/2020 12:57 PM CDT In the last month, have you been in contact with No / Unsure someone who was confirmed or suspected to have Coronavirus / COVID-19? Last Filed Vital Signs Reading Time Taken Comments Vital Sign 100/58 08/28/2020 1:10 PM CDT Blood Pressure 56 08/28/2020 1:10 PM CDT Pulse 36.3 C (97.3 F) 07/03/2020 12:00 PM CDT Temperature 17 06/05/2020 2:56 PM CDT Respiratory Rate 98% 08/28/2020 1:10 PM CDT Oxygen Saturation - - Inhaled Oxygen Concentration 73 kg (161 lb) 08/28/2020 1:10 PM CDT Weight 175.3 cm (5' 9") 08/28/2020 1:10 PM CDT Height 23.78 08/28/2020 1:10 PM CDT Body Mass Index Plan of Treatment Health Maintenance Due Date Last Done Comments MEDICARE ANNUAL WELLNESS 1945 VISIT DTAP/TDAP VACCINES (1 - 1964 Tdap) PHYSICAL (COMPREHENSIVE) 1964 EXAM SHINGLES RECOMBINANT 1996 VACCINE (1 of 2) ABDOMINAL AORTIC ANEURYSM 10/04/2011 SCREENING PNEUMONIA (PPSV23) 10/04/2011 VACCINE (1 of 1 - PPSV23) INFLUENZA VACCINE 11/21/2020 12/21/2019, 12/21/2019, 11/25/2017, Additional history exists COLORECTAL CANCER 11/06/2028 11/06/2018 SCREENING HEPATITIS C SCREENING Completed 11/20/2015, 04/11/2015 Goals Goal Patient Associated Recent Progress Patient-Stat Aut hor Goal Type Problems ed? Take Medication at Right Time, Medication Yes [place], Right Day, Right Order, With Adherence DEBORAH Jones or Without Food Correctly Note: "get this Afib under control" Implants Device Identifier Shelf Expiration Date Model / Serial / L ot Implanted Type Area Manufactur er Pin Pin Ear 07/22/2020 [id number] / [id number] / [id number] Atriclip Pro2 50mm Ernesto Exclusion Left: Heart ATRI CURE System [employer]andre[employer]David - [id number] Implanted: Qty: 1 on 12/13/2018 by Alfonso Biswas III, MD at [facility] Description:ATRICURE ATRICLIP PRO 2- ERNESTO EXCLUSION SYSTEM; 50 Device Identifier Shelf Expiration Date Model / Serial / L ot Explanted Type Area Manufactur er 07/21/2020 [id number] / [id number] / [id number] Stent-11/08/2015 Stent Right: Abdomen MEZA GURU Implanted: Qty: 1 on 11/08/2015 by Taran Wilkins MD at [facility] [place]:[facility] Explanted: Qty: 1 on 12/15/2015 by Kalia Coburn MD Procedures Comments Procedure Name Priority Date/Time Associated Diag nosis 25-OH VITAMIN D (D2 + D3) Routine 09/03/2020 COMPREHENSIVE METABOLIC Routine 09/03/2020 PANEL CREATINE KINASE-CPK Routine 09/03/2020 TACROLIMUS, HIGHLY 08/28/2020 SENSITIVIE 9:16 AM CDT TOTAL PROTEIN-URINE 08/28/2020 RANDOM 9:16 AM CDT URINALYSIS, COMPLETE 08/28/2020 W/RFL CULTURE 9:16 AM CDT CBC AND DIFF 08/28/2020 9:16 AM CDT EVEROLIMUS 08/28/2020 9:16 AM CDT COMPREHENSIVE METABOLIC 08/28/2020 PANEL 9:16 AM CDT URIC ACID 08/28/2020 9:16 AM CDT PHOSPHORUS 08/28/2020 9:16 AM CDT MAGNESIUM 08/28/2020 9:16 AM CDT LIPID PANEL, QUEST 08/28/2020 9:16 AM CDT EVEROLIMUS BLOOD Routine 08/28/2020 Kidney replac ed by 9:16 AM CDT transplant Encounter for therapeutic drug monitoring Encounter for long-term (current) use of high-risk medication Urinary tract infection without hematuria, site unspecified BK viremia URINALYSIS MICROSCOPIC Routine 08/28/2020 Kidney replaced by REFLEX TO CULTURE 9:16 AM CDT transplant Encounter for therapeutic drug monitoring Encounter for long-term (current) use of high-risk medication Urinary tract infection without hematuria, site unspecified BK viremia URINALYSIS DIPSTICK Routine 08/28/2020 Kidney rep laced by REFLEX TO CULTURE 9:16 AM CDT transplant Encounter for therapeutic drug monitoring Encounter for long-term (current) use of high-risk medication Urinary tract infection without hematuria, site unspecified BK viremia CBC AND DIFF Routine 08/28/2020 Kidney replaced by 9:16 AM CDT transplant Encounter for therapeutic drug monitoring Encounter for long-term (current) use of high-risk medication Urinary tract infection without hematuria, site unspecified BK viremia PROTEIN/CR RATIO,UR RAN Routine 08/28/2020 Kidney replaced by 9:16 AM CDT transplant Encounter for therapeutic drug monitoring Encounter for long-term (current) use of high-risk medication Urinary tract infection without hematuria, site unspecified BK viremia URIC ACID Routine 08/28/2020 Kidney replaced by 9:16 AM CDT transplant Encounter for therapeutic drug monitoring Encounter for long-term (current) use of high-risk medication Urinary tract infection without hematuria, site unspecified BK viremia PHOSPHORUS Routine 08/28/2020 Kidney replaced by 9:16 AM CDT transplant Encounter for therapeutic drug monitoring Encounter for long-term (current) use of high-risk medication Urinary tract infection without hematuria, site unspecified BK viremia MAGNESIUM Routine 08/28/2020 Kidney replaced by 9:16 AM CDT transplant Encounter for therapeutic drug monitoring Encounter for long-term (current) use of high-risk medication Urinary tract infection without hematuria, site unspecified BK viremia COMPREHENSIVE METABOLIC Routine 08/28/2020 Kidney replaced by PANEL 9:16 AM CDT transplant Encounter for therapeutic drug monitoring Encounter for long-term (current) use of high-risk medication Urinary tract infection without hematuria, site unspecified BK viremia LIPID PROFILE Routine 08/28/2020 Hypercholestero lemia 9:16 AM CDT TACROLIMUS LC-MS/MS Routine 08/28/2020 Kidney rep laced by 9:16 AM CDT transplant Encounter for therapeutic drug monitoring ECG-SCAN 08/28/2020 12:00 AM CDT LIPID PROFILE Routine 07/11/2020 Persistent atri al fibrillation (HCC) Mixed hyperlipidemia S/P kidney transplant PVC's (premature ventricular contractions) Coronary artery disease involving [place] coronary artery of [place] heart without angina pectoris BK VIRUS DNA, QUANT Routine 07/11/2020 PLASMA TACROLIMUS IMMUNOASSAY Routine 07/11/2020 ([id number]) CBC AND DIFF Routine 07/11/2020 CREATININE-URINE RANDOM Routine 07/11/2020 URIC ACID Routine 07/11/2020 PHOSPHORUS Routine 07/11/2020 MAGNESIUM Routine 07/11/2020 COMPREHENSIVE METABOLIC Routine 07/11/2020 PANEL LIPID PROFILE Routine 07/11/2020 CULTURE-URINE Routine 07/11/2020 W/SENSITIVITY FLUORO GUIDANCE FOR SPINE Routine 07/03/2020 INJ RAD 11:53 AM CDT NE NJX DX/THER SBST Routine 07/03/2020 Thoracic r adiculopathy INTRLMNR CRV/THRC W/IMG 10:50 AM CDT GDN from Last 3 Months Results * 25-OH VITAMIN D (D2 + D3) (09/03/2020) Vitamin 54 OTHER OUTSIDE D(25-OH)Total LAB Vitamin <4.0 OTHER OUTSIDE D2,25-OH LAB VITAMIN 54 OTHER OUTSIDE D3,25-OH LAB Specimen Blood - Blood Performing Organization Address City/State/ZIP Code P madhu Number OTHER OUTSIDE LAB * CREATINE KINASE-CPK (09/03/2020) Creatine Kinase 51 OTHER OUTSIDE LAB Specimen Blood - Blood Narrative Performed At This result has an attachment that is n ot available. Performing Organization Address City/State/ZIP Code P madhu Number OTHER OUTSIDE LAB * COMPREHENSIVE METABOLIC PANEL (09/03/2020) Only the most recent of 4 results within the time period is included. Sodium 137 OTHER OUTSIDE LAB Potassium 4.5 OTHER OUTSIDE LAB Chloride 103 OTHER OUTSIDE LAB CO2 23 OTHER OUTSIDE LAB Blood Urea 18 OTHER OUTSIDE Nitrogen LAB Creatinine 1.27 (H) OTHER OUTSIDE LAB Glucose 113 (H) OTHER OUTSIDE LAB Calcium 9.5 OTHER OUTSIDE LAB Total Protein 6.4 OTHER OUTSIDE LAB Total Bilirubin 0.7 OTHER OUTSIDE LAB Albumin 4.0 OTHER OUTSIDE LAB Alk Phosphatase 82 OTHER OUTSIDE LAB AST (SGOT) 50 (H) OTHER OUTSIDE LAB ALT (SGPT) 42 OTHER OUTSIDE LAB eGFR Non OTHER OUTSIDE LAB Filipino eGFR OTHER OUTSIDE Filipino LAB Anion Gap OTHER OUTSIDE LAB Specimen Blood - Blood Narrative Performed At This result has an attachment that is n ot available. Performing Organization Address City/State/ZIP Code P madhu Number OTHER OUTSIDE LAB * LIPID PANEL, [facility] (08/28/2020 9:16 AM CDT) Cholesterol 167 <200 mg/dL [facility] HDL 30 (L) > OR = 40 mg/dL [facility] Triglycerides 302 (H) <150 mg/dL [facility] Comment: DIAGNOSTICS If a non-fasting specimen was collected, consider repeat triglyceride testing on a fasting specimen if clinically indicated. Rolo et al. J. of Clin. Lipidol. 2015;9:129-169. LDL 97 mg/dL (calc) [facility] Comment: [facility]ST[facility] Reference range: <100 Desirable range <100 mg/dL for primary prevention; <70 mg/dL for patients with CHD or diabetic patients with > or = 2 CHD risk factors. LDL-C is now calculated using the Albert-Ameena calculation, which is a validated novel method providing better accuracy than the Friedewald equation in the estimation of LDL-C. Albert ARANGO et al. BERTO. 2013;310(19): 1101-0986 (http://education.Ice[employer].[facility]/faq/FTF099) Cholesterol/HDL 5.6 (H) <5.0 (calc) [facility] Ratio DIAGNOSTICS Non HDL 137 (H) <130 mg/dL (calc) [facility] Cholesterol Comment: DIAGNOSTICS For patients with diabetes plus 1 major ASCVD risk factor, treating to a non-HDL-C goal of <100 mg/dL (LDL-C of <70 mg/dL) is considered a therapeutic option. Test Performed at: [facility] [address] [place] [address] FLORINA LISA DO,MPH Specimen Performing Organization Address [facility] P madhu Number [facility] [address] [place] [address] * URINALYSIS MICROSCOPIC REFLEX TO CULTURE (08/28/2020 9:16 AM CDT) WBCs,UA NONE SEEN [facility] INTERFACE RBCs,UA NONE SEEN LAB[facility] INTERFACE Squamous NONE SEEN [facility] INTER[facility] Epithelial Cells Bacteria,UA NONE SEEN [facility] INTERFACE Specimen Narrative Performed At LABDE INTERFACE Outside Lab Verified by Daniel Spence on 09/02/2020. Performing Organization Address [facility] Code P madhu Number LABDE INTERFACE * URINALYSIS DIPSTICK REFLEX TO CULTURE (08/28/2020 9:16 AM CDT) Color,UA YELLOW [facility] INTER[facility] Turbidity,UA CLEAR [facility] INTER[facility] Specific 1.022 LABDE INTERFACE [place]-Urine pH,UA 6.5 LAB[facility] INTERFACE Glucose,UA NEGATIVE [facility] INTERFACE Bilirubin,UA NEGATIVE [facility] INTERFACE Ketones,UA NEGATIVE [facility] INTERFACE Blood,UA NEGATIVE LAB[facility] INTERFACE Protein,UA NEGATIVE [facility] INTERFACE Nitrite,UA NEGATIVE [facility] INTERFACE Leukocytes,UA NEGATIVE [facility] INTERFACE Specimen Narrative Performed At LABDE INTERFACE Outside Lab Verified by Daniel Spence on 09/02/2020. Performing Organization Address City/[facility]/ZIP Code P madhu Number LABDE INTERFACE * EVEROLIMUS BLOOD (08/28/2020 9:16 AM CDT) Everolimus 5.0 LAB[facility] INTERFACE Specimen Narrative Performed At LABDE INTERFACE Outside Lab Verified by Danielitalia Spence on 09/04/2020. Performing Organization Address City/[facility]/ZIP Code P madhu Number LABDE INTERFACE * TACROLIMUS LC-MS/MS (08/28/2020 9:16 AM CDT) Tacrolimus 1.1 (L) 5.0 - 20.0 LAB[facility] INTERFACE LC-MS/MS Specimen Blood Narrative Performed At LABDE INTERFACE Outside Lab Verified by Daniel Umpire on 09/02/2020. Performing Organization Address [facility] P madhu Number LABDE INTERFACE * EVEROLIMUS (08/28/2020 9:16 AM CDT) Everolimus 5.0 ng/mL [facility] Comment: DIAGNOSTICS Unable to flag abnormal result(s), please refer to reference range(s) below: Trough: 3.0 - 8.0 ng/mL for Transplantation Trough: 5.0 - 10.0 ng/mL for Oncology/Neurology Symptoms of toxicity are more likely to occur at trough levels exceeding 12.0 ng/mL. This test was developed and its analytical performance characteristics have been determined by [facility] [place], [place]. It has not been cleared or approved by the U.S. Food and Drug Administration. This assay has been validated pursuant to the CLIA regulations and is used for clinical purposes. Test Performed at: [facility] [address] IAIN MCMILLAN MD,PHD Specimen Performing Organization Address [facility] P madhu Number [facility] [address] [place] [address] * URINALYSIS, COMPLETE W/RFL CULTURE (08/28/2020 9:16 AM CDT) Color,UA YELLOW YELLOW [facility] Turbidity,UA CLEAR CLEAR [facility] Specific 1.022 1.001 - 1.035 [facility] [place] pH,UA 6.5 5.0 - 8.0 [facility] Glucose,UA NEGATIVE NEGATIVE [facility] Bilirubin,UA NEGATIVE NEGATIVE [facility] Ketones,UA NEGATIVE NEGATIVE [facility] Blood,UA NEGATIVE NEGATIVE [facility] Protein,UA NEGATIVE NEGATIVE [facility] Nitrite,UA NEGATIVE NEGATIVE [facility] Leukocytes,UA NEGATIVE NEGATIVE [facility] WBCs,UA NONE SEEN < OR = 5 /HPF [facility] RBCs,UA NONE SEEN < OR = 2 /HPF [facility] Squamous NONE SEEN < OR = 5 /HPF [facility] Epithelial DIAGNOSTICS Cells Bacteria,UA NONE SEEN NONE SEEN /HPF [facility] Hyaline Cast NONE SEEN NONE SEEN /LPF [facility] Comment: DIAGNOSTICS Test Performed at: [facility] [id number] [place] [address] FLORINA LISA DO,MPH Specimen Performing Organization Address [facility] P madhu Number [facility] [address] [place] [id number] * TACROLIMUS, HIGHLY SENSITIVIE (08/28/2020 9:16 AM CDT) Tacrolimus, 1.1 (L) mcg/L [facility] Comment: DIAGNOSTICS Sensitive No definitive therapeutic o r toxic ranges have been established. Optimal blood drug levels are influenced by type of transplant, patient response, time post- transplant, co-administration of other drugs, and drug formulation. The following trough range is a suggested guideline: 5.0-20.0 mcg/L. This test was developed and its analytical performance characteristics have been determined by [facility]. It has not been cleared or approved by the FDA. This assay has been validated pursuant to the CLIA regulations and is used for clinical purposes. REPORT COMMENT: FASTING:YES Test Performed at: [facility] [place] [address] FLORINA LISA DO,MPH Specimen Performing Organization Address [facility] P madhu Number [facility] [address] [place] [address] * PROTEIN/CR RATIO,UR RAN (08/28/2020 9:16 AM CDT) Creatinine, 138 LAB[facility] INTERFACE Random Protein/CR 0.080 LAB[facility] INTERFACE ratio Protein, Random 11 [facility] INTER[facility] Specimen Urine Narrative Performed At LABDE INTERFACE Outside Lab Verified by Daniel Spence on 09/02/2020. Performing Organization Address [facility] P madhu Number LABDE INTERFACE * TOTAL PROTEIN-URINE RANDOM (08/28/2020 9:16 AM CDT) Creatinine, 138 20 - 320 mg/dL [facility]AGNOSTICS Ur. Protein/Cr 80 22 - 128 mg/g creat [facility] Ratio, mg/g DIAGNOSTICS Creat Ur. Protein/Cr 0.080 0.022 - 0.128 mg/mg [facility] Ratio, mg/mg creat DIAGNOSTICS Creat Protein, Random 11 5 - 25 mg/dL [facility] Comment: DIAGNOSTICS Test Performed at: [facility] [address] FLORINA LISA DO,MPH Specimen Performing Organization Address [facility] P madhu Number [facility] [address] [place] [address] * CBC AND DIFF (08/28/2020 9:16 AM CDT) Only the most recent of 3 results within the time period is included. White Blood 4.4 3.8 - 10.8 [facility] Cells Thousand/uL DIAGNOSTICS RBC 4.29 4.20 - 5.80 [facility] Million/uL [facility]AGNOSTICS Hemoglobin 11.5 (L) 13.2 - 17.1 g/dL [facility] Hematocrit 35.4 (L) 38.5 - 50.0 % [facility] MCV 82.5 80.0 - 100.0 fL [facility] MCH 26.8 (L) 27.0 - 33.0 pg [facility] MCHC 32.5 32.0 - 36.0 g/dL [facility] RDW 15.0 11.0 - 15.0 % [facility] Platelet Count 240 140 - 400 [facility] Thousand/uL DIAGNOSTICS MPV 9.5 7.5 - 12.5 fL [facility] Absolute 2605 1500 - 7800 cells/uL [facility] Neutrophil DIAGNOSTICS Count Absolute Lymph 1166 850 - 3900 cells/uL [facility] Count [facility]AGNOSTICS Absolute 568 200 - 950 cells/uL [facility] Monocyte Count DIAGNOSTICS Absolute 31 15 - 500 cells/uL [facility] Eosinophil DIAGNOSTICS Count Absolute 31 0 - 200 cells/uL [facility] Basophil Count DIAGNOSTICS Neutrophils 59.2 % [facility] Lymphocytes 26.5 % [facility] Monocytes 12.9 % [facility] Eosinophils 0.7 % [facility] Basophils 0.7 % [facility] Comment: DIAGNOSTICS Test Performed at: [facility] [address] FLORINA LISA DO,MPH Specimen Performing Organization Address City/[facility] P madhu Number [facility] [address] [place] [address] * URIC ACID (08/28/2020 9:16 AM CDT) Only the most recent of 3 results within the time period is included. Pathologist [facility] Uric Acid 5.7 4.0 - 8.0 mg/dL [facility] Comment: DIAGNOSTICS Therapeutic target for gout patients: <6.0 mg/dL Test Performed at: [facility] [address] FLORINA LISA DO,MPH Specimen Performing Organization Address City/[facility] P madhu Number [facility] [address] [place] [address] * PHOSPHORUS (08/28/2020 9:16 AM CDT) Only the most recent of 3 results within the time period is included. Phosphorus 2.7 2.1 - 4.3 mg/dL [facility] Comment: DIAGNOSTICS Test Performed at: [facility] [address] [address] FLORINA LISA DO,MPH Specimen Performing Organization Address [facility] P madhu Number [facility] [address] [place] [address] * MAGNESIUM (08/28/2020 9:16 AM CDT) Only the most recent of 3 results within the time period is included. Pathologist [facility] Magnesium 1.9 1.5 - 2.5 mg/dL [facility] Comment: DIAGNOSTICS Test Performed at: [facility] [address] [address] FLORINA LISA DO,MPH Specimen Performing Organization Address [facility] P madhu Number [facility] [address] [place] [address] * LIPID PROFILE (08/28/2020 9:16 AM CDT) Only the most recent of 3 results within the time period is included. Cholesterol 167 [facility] INTERFACE HDL 30 (L) >=40 [facility] INTER[facility] Triglycerides 302 (H) <150 [facility] INTERFACE LDL 97 [facility] INTERFACE Cholesterol/HDL 5.6 (H) <5.0 [facility] INTERFAC E Ratio Non HDL 137 (H) <130 [facility] INTER[facility] Cholesterol Specimen Blood Narrative Performed At LABDE INTERFACE Outside Lab Verified by Daniel Spence on 09/02/2020. Performing Organization Address City/[facility]/[place]IP [facility] P madhu Number [facility] INTERFACE * ECG-SCAN (08/28/2020 12:00 AM CDT) Narrative Performed At This result has an attachment that is n ot available. Ordered by an unspecified provider. * BK VIRUS DNA, QUANT PLASMA (07/11/2020) Specimen Blood - Blood Narrative Performed At This result has an attachment that is n ot available. Performing Organization Address City/[facility] Code P madhu Number OTHER OUTSIDE LAB * CREATININE-URINE RANDOM (07/11/2020) Creatinine, OTHER OUTSIDE Random LAB Specimen Urine - Urine Narrative Performed At This result has an attachment that is n ot available. Performing Organization Address City/State/ZIP Code P madhu Number OTHER OUTSIDE LAB * CULTURE-URINE W/SENSITIVITY (07/11/2020) Specimen Urine Narrative Performed At This result has an attachment that is n ot available. Performing Organization Address City/State/ZIP Code P madhu Number OTHER OUTSIDE LAB * TACROLIMUS IMMUNOASSAY ([id number]) (07/11/2020) Specimen Blood - Blood Narrative Performed At This result has an attachment that is n ot available. Performing Organization Address City/State/ZIP Code P madhu Number OTHER OUTSIDE LAB * FLUORO GUIDANCE FOR SPINE INJ RAD (07/03/2020 11:53 AM CDT) Specimen Narrative Performed At This order has been auto finalized and does not conta in a result. [facility] Performing Organization Address City/State/ZIP Code P madhu Number [facility] * VENUS CRV/THRC Injection (07/03/2020 10:50 AM CDT) Narrative Performed At Alexei Bernabe MD 07/03/2020 12:35 PM OTHE R OUTSIDE LAB VENUS CRV/THRC Injection Procedure: epidural - interlaminar Laterality: n/a Location: thoracic VENUS with imaging - T 12-L1 Consent: Consent obtained: verbal and written Consent given by: patient Risks discussed: allergic reaction, ble eding, infection, nerve damage and seizure (Headache) Alternatives discussed: no treatment Discussed with patient the purpose of t he treatment/procedure, other ways of treating my condition, including no treatment/ procedure and the risks and benefits of the alternatives. Latisha hernandez has decided to proceed with treatment/procedure. [place] Protocol: Relevant documents: relevant documents present and verified Test results: test results available an d properly labeled Imaging studies: imaging studies availa ble Required items: required blood products , implants, devices, and special equipment available Site marked: the operative site was jose lu Patient identity confirmed: Patient kulwinder ntify confirmed verbally with patient. 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 Needle and Epidural Catheter: tuohy Needle size: 18 G Injection procedure: Incremental inject ion, Negative aspiration for blood and Introduced needle Patient tolerance: Patient tolerated th e procedure well with no immediate complications. Pressure was applied, an d hemostasis was accomplished. Outcome: Pain unchanged Comments: INTERVENTIONAL PAIN MANAGEMEN T PROCEDURE REPORT Thoracic Epidural Steroid Injection Date of Service: 07/03/20 Procedure Title(s): 1. T12-L1 epidural injection 2. Intraoperative fluoroscopy Attending: Alexei Bernabe MD Anesthesia: Local anesthetic Indications: Taylor Coates is a 74 y.o. male with a diagnosis of lumbar radiculopathy. The patient's his tory and physical exam were reviewed. The risks, benefits and alter natives to the procedure were discussed, and all questions were answe red to the patient's satisfaction. The patient agreed to proceed, and writ ten informed consent was obtained. Procedure in Detail: IV was started? No The patient was brought into the proced ure room and placed in the prone position on the fluoroscopy table. Prabhakar dard monitors were placed, and vital signs were observed throughout th e procedure. The area of the cervical spine was prepped with 2% chlo rhexidine and draped in a sterile manner. The T12-L1 interspace was identified an d marked under AP fluoroscopy. The skin and subcutaneous tissues in the ar ea were anesthetized with 1% lidocaine. An 18-gauge Tuohy epidural n eedle was directed toward the interspace under fluoroscopic guidance until the ligamentum flavum was engaged. From this point, using lateral and oblique fluoroscopic guidance, a loss of resistance technique with a g lass syringe and saline/air was used to identify entrance of the needle into the epidural space. Once an appropriate loss of resistance was obta ined, negative aspiration was confirmed and 0.5-1ml of contrast solut ion was injected. An appropriate epidurogram was noted on AP and lateral fluoroscopy with no vascular or intrathecal uptake. Then, after negative aspiration, a solu tion containing 80 mg of kenalog and 2-3 mL of preservative-free saline was easily injected. The needle was removed with a saline flush. The patien t s back was cleaned and a bandage was placed over the site of needle inse rtion. Disposition: The patient tolerated the procedure well, and there were no apparent complications. Vital signs rem ained stable througtout the procedure. The patient was taken to the recovery area where discharge instructions for the procedure were giv en. Estimated Blood Loss: Minimal Specimens: None Complications: None Performing Organization Address City/State/ZIP Code P madhu Number OTHER OUTSIDE LAB from Last 3 Months Insurance Type Payer Benefit Subscriber ID Effective Phone Address Plan / Dates Group Medicare UHC MEDICARE UHC [id number] 2020-P MEDICARE resent REPLACEMEN T ([place]) [place] [address] Advance Directives Patient [employer] Explanation Type Date Recorded Advance 11/08/2015 4:54 PM Directive/DPOA Date Inactivated Comments Code Status Date Activated 03/04/2019 2:02 PM Full Code 02/28/2019 12:57 PM Provider has discussed Code Status No, discussion no t w/Patient or Family? necessary based on Dx 02/28/2019 12:57 PM Full Code 02/28/2019 6:35 AM Provider has discussed Code Status No, discussion no t w/Patient or Family? necessary based on Dx 12/15/2018 1:36 PM Full Code 12/13/2018 5:56 AM Provider has discussed Code Status Yes w/Patient or Family? 11/13/2018 3:34 PM Full Code 11/12/2018 4:06 PM Provider has discussed Code Status No, more discussi on w/Patient or Family? needed 11/11/2018 5:30 PM Full Code 11/01/2018 12:26 AM Provider has discussed Code Status Yes w/Patient or Family?
--- OUTSIDE RECORDS SUMMARY | 2020-09-23 10:41 | XMS REPORT | Encounter Summary ---
Author Author [facility] Address Unknown Phone Unavailable Care Team Providers [employer] Inspector Name Role Phone Roberta Huang RN Unavailable Unavailable Susie Recinos Unavailable Unavailable Franklyn Dumont RN 2 Unavailable Stanford Hickman DO Unavailable Johanne Veliz MA Unavailable Unavailable Anny Gonzalez RN Unavailable Unavailable Jose Manuel Oseguera MD Unavailable Unavailable Maxine Vallejo TYPECASTING MACHINE OPERATOR-VAN LOADER Unavailable Taran Greenfield MD Unavailable Gladys Fragoso MD Unavailable Mar Pisano MA Unavailable Unavailable Jackie Ellis TYPECASTING MACHINE OPERATOR-VAN LOADER Unavailable [phone] Maggie Hagan Unavailable Unavailable Keanu Manzano MD Unavailable Rosario Bass RN Unavailable Unavailable Ciara Ornelas Unavailable Unavailable Nisa Deluna RN Unavailable Unavailable Carmen Padilla MA Unavailable Unavailable Jacob Chavez MD PCP Stanford [place] [id number] Reason for Referral * Consult, Test & Treat (Routine) Referred By Contact Referred To Contact Status Reason Specialty Diagnoses / Procedures Elisa Esteban, TYPECASTING MACHINE OPERATOR-VAN LOADER [address] [facility] [place] [address] New Request Procedures REQUEST FOR CARDIOLOGY APPOINTMENT Electronically signed by Elisa DRUMMOND at Reason for Visit * Reason Comments Follow Up * Consult, Test & Treat (Routine) Referred By Contact Referred To Contact Status Reason Specialty Diagnoses / Procedures Elisa Esteban APRN-NP [address] [facility] [place] [address] New Request Procedures REQUEST FOR CARDIOLOGY APPOINTMENT Encounter Details Care Team Description Date Type Department Elisa Esteban APRN-NP [address] [facility] [place] [address] [phone] Follow Up 08/28/2020 Office Visit Cardiology: [facility] [address] [facility] [place] [address] Social History Date Tobacco Use Types Packs/Day Years Used Quit: 04/11/1993 Former Smoker Cigarettes 1 30 Smokeless Tobacco: Never Used Drinks/Week oz/Week Comments Alcohol Use 0 Standard drinks or equivalent 0.0 1x/month-sonido No Sex Assigned at Date Recorded Male 06/14/2019 9:45 AM CDT Date Recorded COVID-19 Exposure Response 08/28/2020 12:57 PM CDT In the last month, have you been in contact with No / Unsure someone who was confirmed or suspected to have Coronavirus / COVID-19? documented as of this encounter Last Filed Vital Signs Reading Time Taken Comments Vital Sign 100/58 08/28/2020 1:10 PM CDT Blood Pressure 56 08/28/2020 1:10 PM CDT Pulse - - Temperature - - Respiratory Rate 98% 08/28/2020 1:10 PM CDT Oxygen Saturation - - Inhaled Oxygen Concentration 73 kg (161 lb) 08/28/2020 1:10 PM CDT Weight 175.3 cm (5' 9") 08/28/2020 1:10 PM CDT Height 23.78 08/28/2020 1:10 PM CDT Body Mass Index documented in this encounter Functional Status Date of Assessment Functional Status Response 08/21/2020 Does the patient have a hearing impairment: No 08/21/2020 Does the patient have a visual impairment: Yes 08/21/2020 Does the patient have impaired ambulation: No 08/21/2020 Does the patient have an activity of daily living No (ADL) impairment: 08/21/2020 Does the patient have an instrumental activity of No daily living (IADL) impairment: Date of Assessment Cognitive Status Response 08/21/2020 Does the patient have a cognitive impairment: No documented as of this encounter Patient Instructions * Patient Instructions* Elisa Esteban, TREMAINE-VAN LOADER - 08/28/2020 1:00 PM CDT Images from the original note were not included. - It was nice to see you today! - Let's trial you on a sustained release nitroglycerin pill called isosorbide mo nonitrate to see if it helps with the chest pain you are occasionally experienci ng. Nitrates can sometimes help with GI discomfort, if related to esophageal spa sms, as well. I sent in a 30-day prescription. If it helps, let us know and we c an send in a 90-day prescription. - Hold the atorvastatin to see if you get any relief from the generalized pain y ou have been experiencing. - With the swallowing issues, you may benefit from upper endoscopy. - I have requested a 3 month follow up visit. Please send us a [employer] message o r call our nurse line at [phone] with any questions or concerns in the mean time. Isosorbide Mononitrate ER 24 HR Extended Release Tablet 30 mg Uses This medicine is used for the following purposes: angina enlarged veins Instructions Swallow the medicine without crushing or chewing it. Take the medicine with 250 mL (1 cup) of water. It is very important that you take the medicine at about the same time every day . It will work best if you do this. Take the medicine first thing in the morning. Keep the medicine at room temperature. Avoid heat and direct light. It is important that you keep taking each dose of this medicine on time even if you are feeling well. If you forget to take a dose on time, take it as soon as you remember. If it is almost time for the next dose, do not take the missed dose. Return to your alex l dosing schedule. Do not take 2 doses of this medicine at one time. Please tell your doctor and pharmacist about all the medicines you take. Include both prescription and cwrd-ybr-thpfepe medicines. Also tell them about any fior mins, herbal medicines, or anything else you take for your health. Do not suddenly stop taking this medicine. Check with your doctor before stopvir[place] Cat Tell your doctor and pharmacist if you ever had an allergic reaction to a medici ne. Symptoms of an allergic reaction can include trouble breathing, skin rash, i tching, swelling, or severe dizziness. Do not use the medication any more than instructed. This medicine may cause dizziness or fainting, especially after exercising or in hot weather. Be very careful when standing or sitting up quickly. Your ability to stay alert or to react quickly may be impaired by this medicine. Do not drive or operate machinery until you know how this medicine will affect you. Tell the doctor or pharmacist if you are , planning to be , or b reastfeeding. Do not take this medicine with other medicines called PDE5 inhibitors (Viagra, L evitra, Cialis). Your doctor will let you know if it is safe for you to do so. Ask your pharmacist if this medicine can interact with any of your other medicin es. Be sure to tell them about all the medicines you take. Do not start or stop any other medicines without first speaking to your doctor o r pharmacist. Do not share this medicine with anyone who has not been prescribed this medicine . Side Effects The following is a list of some common side effects from this medicine. Please s peak with your doctor about what you should do if you experience these or other side effects. dizziness headaches nausea Call your doctor or get medical help right away if you notice any of these more serious side effects: low blood pressure A few people may have an allergic reactions to this medicine. Symptoms can inclu de difficulty breathing, skin rash, itching, swelling, or severe dizziness. If y ou notice any of these symptoms, seek medical help quickly. Extra Please speak with your doctor, nurse, or pharmacist if you have any questions ab out this medicine. [email or web address] IMPORTANT NOTE: This document tells you briefly how to take your medicine, but i t does not tell you all there is to know about it.Your doctor or pharmacist may give you other documents about your medicine. Please talk to them if you have an y questions.Always follow their advice. There is a more complete description of this medicine available in [place].Scan this code on your smartphone or tablet o r use the web address below. You can also ask your pharmacist for a printout. If you have any questions, please ask your pharmacist. 2020 [employer]. documented in this encounter Ordered Prescriptions Start Date End Date Prescription Sig Dispensed Refills 08/28/2020 isosorbide mononitrate ER Take one 30 tablet 3 (IMDUR) 30 mg tablet tablet by mouth every morning. 08/28/2020 sotaloL (BETAPACE) 80 mg Take one 270 tablet 3 tablet tablet by mouth twice daily. documented in this encounter Progress Notes * Elisa Esteban APRN-NP - 08/28/2020 1:00 PM CDT Date of Service: 08/28/2020 Taylor Coates is a 74 y.o. male. HPI I had the pleasure of seeingTaylor Omerleonashakira for a 4-month follow up vi sit. 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 Hewas on anticoagulati on due to h.o. atrial fibrillationand had pulmonary hemorrhage and it was disc ontinued. He underwent placement of an AtriClipby Dr. Biswas in November 2018. Follow-up AMILCAR 01/2019 showed no residual left atrial appendage. He underwent right heart catheterization in February 2019 for assessment of high-output heart failure and there was no evidence of it. His hemodynamics were normal. He und erwent cardiac testing in October 2019 after an episode of chest pain, which a wakened him from sleep. Echocardiogram showed normal LVEF 65% with concentric re modeling and grade 2 diastolic dysfunction. Right ventricular size and systoli c function were normal. The left atrium was severely dilated. There was mild mitral, tricuspid, and aortic valve regurgitation. There was no pericardial e ffusion. CVP was normal. PA pressure was normal at 28 mmHg. Regadenoson thalli um MPI stress test was normal, with no evidence of significant myocardial ischem ia. LVEF was 68% with normal left ventricular wall motion and thickening of al l myocardial segments. There were no high-risk features. Mr. Coates reports that he has been experiencing a lot of back, shoulder and hip pain. He feels like his muscles are locking up. He is following with Dr. Bernabe in the pain clinic and physical therapy was ordered. He was switched to baclofen last week. He tells me that he can work all day without any chest pain or pres sure or unusual shortness of breath. He does occasionally get some substernal c hest pain and this primarily occurs when he is at rest. It does not seem to be related to meals, however. He occasionally takes sublingual nitroglycerin and t he pain does seem to subside after he takes it. His weight is down 10 pounds ove r the last month. He is having some difficulty swallowing - it feels like food gets stuck. He has known hiatal hernia. He notes occasional palpitations, which feel like PVCs. He had an episode of atrial fibrillation about 3 months ago, w hich lasted about 3 hours. He is taking sotalol 80 mg twice daily. He decrease d the dose about a month ago and has not noted any changes in his palpitation sy mptoms. His triglycerides amaury to 1258 on labs in May and he was started on f enofibrate 145 mg daily along with atorvastatin 40 mg daily. He is also taking fish oil 1 capsule twice daily. His triglycerides have always been somewhat aquilino vated, but previously in the range of 250-400. Vitals: 08/28/20 1310 BP: 100/58 BP Source: Arm, Right Upper Patient Position: Sitting Pulse: 56 SpO2: 98% Weight: 73 kg (161 lb) Height: 1.753 m (5' 9") PainSc: Zero Body mass index is 23.78 kg/m. 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 Chronic neck pain 04/27/2019 This is most likely due to degenerative osteoarthritis. While he has not had r ecent imaging of his cervical spine, CT scan of the trunk and abdomen showed deg enerative changes with narrowed disc spaces and some osteophytes Respiratory infection 03/01/2019 A-fib ([facility]) 02/28/2019 A-V fistula ([facility]) 01/10/2019 L brachial artery-for HD Sensorineural hearing loss (SNHL) of both ears 12/21/2018 Atrial fibrillation ([facility]) 11/12/2018 Hyponatremia 11/03/2018 Nausea and vomiting 11/03/2018 Headache 11/03/2018 Diarrhea 11/03/2018 Atrial fibrillation with rapid ventricular response ([facility]) 11/01/2018 Osteopenia of multiple sites 10/04/2016 PVC's (premature ventricular contractions) 09/20/2016 09/20/16 Holter: Ambulatory ECG Monitoring for approximately 48 hours is abnorm al demonstrating 1) 0.2% PVC burden (2 morphologies, no VT); 2) 0.1% PAC burden; 3) non-sustained multifocal AT up to 22 seconds (114 bpm). The PVC burden is n ot particularly high. 10/21/16 Cardiac PET:Increased FDG uptake involving the anterior apical and mid t o basal lateral wall of the left ventricle compatible with mild myocarditis. 06/03/17 Cardiac PET: Improvement in FDG uptake about the anterior apical and mid to basal lateral wall of left ventricle, with the levels now equivocal between physiologic uptake versus minimal acute myocarditis in appropriate clinical sett ing. Clinical and laboratory correlation is recommended. S/P kidney transplant 11/20/2015 S/p cadaver renal transplant 11/10/2015 Transplant Synopsis: Local Nephrologis t: Dr. 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 Reports 05/2014 and underwent PLEX, chemo, and steroids (several rounds) and had started dialysis within 1 month. HD with LAV graft. Continued to make aprox. 3 L UOP/day prior to txp. Other PMH includ es PAF, HLD, HTN Admit Creat.: 4.33 DC Creat: 1.95 Pre-txp. wt.: 73.2 kg DC wt.: 70.3 Date: 11/08/2015 Transplant Type: DCD - DDRT UNOS: [id number] ([id number]) 46F 5'6", 58.5 kg, BMI 20.8; anoxia PHS increased risk - CPR 99M +smoking >20yr Initial/Peak/Terminal Creat. 1.07/1.4/1.3 Donor Wedge Bx: 95 glom, 15% glumerulosclerosis, minimal arterial/arteriolar damage, fibrosis, and mild focal chronic inflammation (< 5% of bx. area). cPRA: 0% KDPI: 67% CMV: D-/R- OR Note: donor left kidney with 2 renal arteries on aortic patch trans planted on right side. Double-J ureteral stent placed. CIT: 11H WIT: 2 0M Induction: Simulect, Cellcept, Solumedrol. Immunosuppression: Triple (Prograf, Pred, Myfortic) r/t ANCA vasculitis and Simu lect Stent Removal: Need to schedule in approx. 6 weeks. Imaging/Pathology: None Post Op Course: Good renal allograft function with decline in Cr. (UOP slight ly higher than pre-txp. UOP). Mild hyperkalemia - bactrim to be held at DC. Possi sawyer start after clinic visit and lab review on Tuesday (11/13). Immunosuppression (HCC) 11/10/2015 Mild coronary artery disease 08/22/2015 09/18/15: Cath by Dr. Grimes: 1. Left main: Left main is a large vessel arising from the left coronary cusp. It has no significant stenosis. It trifurcates into LAD, ramus intermedius and left circumflex. 2. LAD: LAD is a large vessel, wraps around the apex, and is a type 3 configura tion. It gives off 2 medium size diagonal branches, diagonal 1 and diagonal 2. Diagonal 1 takes off very proximally from the LAD and has 20% to 30% stenosis in the proximal portion. Diagonal 2 arises in the midportion and has 30% to 40% stenosis in the proximal portion. 3. Ramus intermedius. Ramus intermedius arises at the trifurcation from left ma in. It has 20% to 30% stenosis in the proximal portion. Otherwise, ramus bifur cates distally into 2 branches. 4. Left circumflex: Left circumflex is a medium size vessel, which gives off OM 2 branch in the midportion and otherwise has no significant stenosis. 5. RCA: RCA is a large dominant vessel which has no significant stenosis in the proximal, mid and distal portion. Distally, RCA gives rise to PDA and PLV. PLV further gives off multiple branches. Abnormal cardiovascular stress test 04/11/2015 Persistent atrial fibrillation 09/18/15 ECHO: The LV size & systolic function appear normal. The LA is moderately enlarged. LA size 4.3 cm. Moderate MR is seen. The PA systolic pressure on this study is about 35 mm Hg. 09/19/15 CATH: Normal coronary arteries with no significant stenosis. Normal LV a nd RV filling pressures. High cardiac output. 06/07/16 TSH 0.850 08/26/16 ECHO: Normal left ventricular systolic function. EF~ 55%. Mildly dilated right ventricle with normal systolic function. Mild concentric left ventricular hypertrophy. Mild aortic, mitral and tricuspid regurgitation. Normal estimated p eak systolic PA pressure of 28 mmHg. LA size 4.3 cm. 09/20/16 Holter: Ambulatory ECG Monitoring for approximately 48 hours is abnormal demonstrating 1) 0.2% PVC burden (2 morphologies, no VT); 2) 0.1% PAC burden; 3) non-sustained multifocal AT up to 22 seconds (114 bpm). The PVC burden is not particularly high. 10/21/16 ZioPatch: Ambulatory ECG Monitoring for approximately 14 days is abnorma l demonstrating 1) predominantly sinus rhythm with average HR of 73 bpm; 2) <1% PVC burden although PVCs correlated with most triggered episodes -- 5145 total, occasional bigeminy/trigeminy; 3) <1% PACs; 4) 31 non-sustained SVT episodes -- longest 10 seconds at 114 bpm, fastest 5 beats at 174 bpm and one episode correlating with triggered episode; and 5) no NSVT 05/20/17 ECHO: Left ventricular systolic function is within normal limits. LVEF 6 5%. No significant valvular abnormalities. No pericardial effusion. Estimated pe ak systolic pulmonary artery pressure is 25 mmHg. LA size 4.2 cm. Long history of PAF but in October 2018 he was started on flecainide 100 twice daily. He was discharged and came back the next day in A. fib with RVR (he was discharged without any AV node meds). He was cardioverted and flecainide was i ncreased to 150 twice daily which he did not tolerate well. 2 months later he h ad 5 days of A. fib, this time on metoprolol and with a reasonable rate and he w as adequately compensated. This went away on its own and he then reduced his fl ecainide to 100 twice daily because he felt so bad with a higher dose. (Multipl e symptoms including significant loss of conjugate gaze) Essential hypertension Crescentic glomerulonephritis Bursitis of hip HLD (hyperlipidemia) History of renal calculi 3 times-passed without intervention Review of Systems Constitution: Positive for malaise/fatigue. HENT: Negative. Eyes: Negative. Cardiovascular: Positive for chest pain. Respiratory: Negative. Endocrine: Negative. Hematologic/Lymphatic: Negative. Skin: Negative. Musculoskeletal: Negative. Gastrointestinal: Negative. Genitourinary: Negative. Neurological: Negative. Psychiatric/Behavioral: Negative. Allergic/Immunologic: Negative. All other systems reviewed and are negative. Physical Exam General Appearance: no acute distress Skin: warm & intact HEENT: unremarkable Neck Veins: neck veins are flat & not distended Auscultation/Percussion: lungs clear to auscultation, no rales, rhonchi, or whee zing Cardiac Rhythm: regular rhythm & normal rate Cardiac Auscultation: Normal S1 & S2, no S3 or S4, no rub Murmurs: no cardiac murmurs - can hear bruit from left upper arm AV fistula ante rior chest Extremities: no lower extremity edema; 2+ symmetric distal pulses Abdominal Exam: soft, non-tender, bowel sounds normal Neurologic Exam: oriented to time, place and person; no focal neurologic deficit s Psychiatric: Normal mood and affect. Behavior is normal. Judgment and thought c ontent normal. Cardiovascular Studies ECG: sinus rhythm with heart rate 56 bpm. Early R-wave transition. Problems Addressed Today Encounter Diagnoses Name Primary? Persistent atrial fibrillation (HCC) Yes Mixed hyperlipidemia S/P kidney transplant PVC's (premature ventricular contractions) Coronary artery disease involving alutiiq coronary artery of alutiiq heart wit hout angina pectoris Assessment and Plan In conclusion, Mr. Coates is noting some chest discomfort, which is atypical for angina. It seems to primarily occur at rest. He is able to work for long billy ods of time without exertional chest pain, chest pressure or chest tightness or unusual shortness of breath. The chest discomfort seems to respond to sublingua l nitroglycerin. He is also having some difficulty swallowing/feeling like food is getting stuck when he swallows. We discussed that sometimes esophageal spas ms can respond to nitrates. He underwent a regadenoson thallium MPI stress test in October 2019, which was normal. After discussion, I am going to trial him on Imdur 30 mg daily to see if it helps with his chest pain symptoms. He may b enefit from upper endoscopy, given the swallowing issues he is experiencing. He is noting a lot of generalized pain and muscle pain. He is going to hold atorv astatin to see if it helps with the pain. I would like to check a CMP, CPK and vitamin D level. His blood pressure is excellent today. He is in sinus rhythm on ECG. His QTC interval is satisfactory at 458 ms seconds. He will continue s otalol 80 mg twice daily. I requested a 3-month follow-up visit, but encouraged him to call in the interim with any questions or concerns. Current Medications (including today's revisions) acetaminophen (TYLENOL) 500 mg tablet Take two tablets by mouth every 6 hour s while awake. Max of 4,000 mg of acetaminophen in 24 hours. albuterol sulfate (PROAIR HFA) 90 mcg/actuation aerosol inhaler Inhale 2 puf fs by mouth into the lungs every 6 hours as needed for Wheezing or Shortness of Breath. Shake well before use. aspirin 81 mg chewable tablet Chew 1 Tab by mouth daily. Take with food. Res ume taking 06/21/16 (Patient taking differently: Chew 81 mg by mouth daily.) atorvastatin (LIPITOR) 40 mg tablet Take one tablet by mouth daily. baclofen (LIORESAL) 10 mg tablet Take one tablet by mouth three times daily as needed. calcium carbonate/vitamin D-3 (CALCIUM 500+D) 1250 mg/200 unit tablet Take 1 tablet by mouth daily. Calcium Carb 1250mg delivers 500mg elemental Ca (Patient taking differently: Take 1 tablet by mouth twice daily. Calcium Carb 1250mg del gianni 500mg elemental Ca) clindamycin (CLINDA-DERM) 1 % topical solution Apply topically to face and s calp every morning everolimus (immunosuppressive) (ZORTRESS) 0.5 mg tablet Take three tablets b y mouth twice daily. famotidine (PEPCID) 20 mg tablet Take one tablet by mouth twice daily. fenofibrate nanocrystallized (TRICOR) 145 mg tablet Take one tablet by mouth daily. Take with food. finasteride (PROSCAR) 5 mg tablet Take 5 mg by mouth daily. fluticasone (FLONASE) 50 mcg/actuation nasal spray Apply 1 spray to each nos tril as directed daily as needed. HYDROcodone/acetaminophen(+) (NORCO) 10/325 mg tablet Take 1 Tab by mouth ev sofiya 6 hours as needed for Pain icosapent ethyL (VASCEPA) 1 gram capsule Take two capsules by mouth twice da ayse with meals. isosorbide mononitrate ER (IMDUR) 30 mg tablet Take one tablet by mouth ever y morning. lisinopriL (ZESTRIL) 20 mg tablet Take one tablet by mouth daily. magnesium oxide (MAG-OX) 400 mg (241.3 mg magnesium) tablet Take one tablet by mouth daily. nitroglycerin (NITROSTAT) 0.[address] one tablet under tongue every 5 minutes as needed for Chest Pain. Max of 3 tablets, call 911. Vxueb-3-YQQ-EPA-Fish Oil (FISH OIL) 1,000 mg (120 mg-180 mg) cap Take 1,000 mg by mouth twice daily. predniSONE (DELTASONE) 5 mg tablet Take one tablet by mouth daily with break fast. sotaloL (BETAPACE) 80 mg tablet Take one tablet by mouth twice daily. tacrolimus (PROGRAF) 0.5 mg capsule Take one capsule by mouth daily. tiZANidine (ZANAFLEX) 4 mg tablet Take one tablet by mouth at bedtime as nee ded. documented in this encounter Plan of Treatment Order Schedule Name Type Priority Associated Diag noses Ordered: 08/28/2020 ECG 12-LEAD ECG Routine Persistent atri al fibrillation (HCC) Mixed hyperlipidemia S/P kidney transplant PVC's (premature ventricular contractions) Coronary artery disease involving [place] coronary artery of [place] heart without angina pectoris documented as of this encounter Goals Goal Patient Associated Recent Progress Patient-Stat Aut hor Goal Type Problems ed? Take Medication at Right Time, Medication Yes [place], Right Day, Right Order, With Adherence DEBORAH Jones or Without Food Correctly Note: "get this Afib under control" documented as of this encounter Procedures Comments Procedure Name Priority Date/Time Associated Diag nosis ECG-SCAN 08/28/2020 12:00 AM CDT documented in this encounter Results * ECG-SCAN (08/28/2020 12:00 AM CDT) Narrative Performed At This result has an attachment that is n ot available. Ordered by an unspecified provider. * LIPID PROFILE (07/11/2020) Cholesterol 185 OTHER OUTSIDE LAB Triglycerides 377 (H) OTHER OUTSIDE LAB HDL 46 OTHER OUTSIDE LAB LDL 89 OTHER OUTSIDE LAB VLDL OTHER OUTSIDE LAB Non HDL OTHER OUTSIDE Cholesterol LAB Cholesterol/HDL OTHER OUTSIDE Ratio LAB Specimen Blood - Blood Narrative Performed At This result has an attachment that is n ot available. Performing Organization Address City/State/ZIP Code P madhu Number OTHER OUTSIDE LAB documented in this encounter Visit Diagnoses Diagnosis Persistent atrial fibrillation (HCC) - Primary Atrial fibrillation Mixed hyperlipidemia S/P kidney transplant Kidney replaced by transplant PVC's (premature ventricular contractio ns) Other premature beats Coronary artery disease involving [place] coronary artery of [place] heart without angina pectoris documented in this encounter Discontinued Medications Start Date End Date Medication Sig Discontinue Reason 08/14/2020 08/28/2020 sotaloL (BETAPACE) 80 mg Take 1.5 Patient's tablet tablets by Choice mouth twice daily. documented as of this encounter Orders First Ordered Date Appointment Count Last Ordered Date REQUEST FOR CARDIOLOGY APPOINTMENT 2 09/2020 documented in this encounter Additional Health Concerns Assessment Noted Time A fall risk assessment has been completed for the pat ient 08/21/2020 2:18 PM CDT PHQ-2 Depression Total Score: 0 06/05/2020 2:54 PM CDT documented as of this encounter
--- OUTSIDE RECORDS SUMMARY | 2020-09-23 10:41 | XMS REPORT | Encounter Summary ---
Author Author [facility] Organization [facility] Address Unknown Phone Unavailable Care Team Providers Care Tank Assembler Name Role Phone Roberta Huang RN Unavailable Unavailable Susie Recinos Unavailable Unavailable Franklyn Dumont RN 2 Unavailable Stanford Hickman DO Unavailable Johanne Veliz MA Unavailable Unavailable Anny Gonzalez RN Unavailable Unavailable Jose Manuel Oseguera MD Unavailable Unavailable Maxine Vallejo ACCOUNTING TECHNICIAN-BUILDING ECONOMIST Unavailable Taran Greenfield MD Unavailable Gladys Fragoso MD Unavailable Mar Pisano MA Unavailable Unavailable Jackie Ellis ACCOUNTING TECHNICIAN-BUILDING ECONOMIST Unavailable [phone] StaMaggie elam Unavailable Unavailable Keanu Manzano MD Unavailable Rosario Bass RN Unavailable Unavailable Ciara Ornelas Unavailable Unavailable Nisa Deluna RN Unavailable Unavailable Carmen Padilla MA Unavailable Unavailable Jacob Chavez MD PCP Stanford [place] [id number] Encounter Details Care Team Description Date Type Department 08/21/2020 Travel Social History Date Tobacco Use Types Packs/Day Years Used Quit: 04/11/1993 Former Smoker Cigarettes 1 30 Smokeless Tobacco: Never Used Drinks/Week oz/Week Comments Alcohol Use 0 Standard drinks or equivalent 0.0 1x/month-sonido No Sex Assigned at Date Recorded Male 06/14/2019 9:45 AM CDT Date Recorded COVID-19 Exposure Response 08/21/2020 2:20 PM CDT In the last month, have you been in contact with No / Unsure someone who was confirmed or suspected to have Coronavirus / COVID-19? documented as of this encounter Functional Status Date of Assessment [...] impairment: No documented as of this encounter Plan of Treatment Not on filedocumented as of this encounter Goals Goal Patient Associated Recent Progress Patient-Stat Aut hor Goal Type Problems ed? Take Medication at Right Time, Medication Yes [place], Right Day, Right Order, With Adherence DEBORAH Jones or Without Food Correctly Note: "get this Afib under control" documented as of this encounter Visit Diagnoses Not on filedocumented in this encounter Additional Health Concerns Assessment Noted Time A fall risk assessment has been completed for the pat ient 08/21/2020 2:18 PM CDT PHQ-2 Depression Total Score: 0 06/05/2020 2:54 PM CDT documented as of this encounter
--- OUTSIDE RECORDS SUMMARY | 2020-09-23 10:41 | XMS REPORT | Encounter Summary ---
Author Author [facility] Organization [facility] Address Unknown Phone Unavailable Care Team Providers Care Asset Management Analyst Name Role Phone Roberta Huang RN Unavailable Unavailable Susie Recinos Unavailable Unavailable Franklyn Dumont RN 2 Unavailable Stanford Hickman DO Unavailable Johanne Veliz MA Unavailable Unavailable Anny Gonzalez RN Unavailable Unavailable Jose Manuel Oseguera MD Unavailable Unavailable Maxine Vallejo RAIL PROJECT ENGINEER-UNIVERSITY REGISTRAR Unavailable Taran Greenfield MD Unavailable Gladys Fragoso MD Unavailable Mar Pisano MA Unavailable Unavailable Jackie Ellis RAIL PROJECT ENGINEER-UNIVERSITY REGISTRAR Unavailable [phone] Maggie Hagan Unavailable Unavailable Keanu Manzano MD Unavailable Rosario Bass RN Unavailable Unavailable Ciara Ornelas Unavailable Unavailable Nisa Deluna RN Unavailable Unavailable Carmen Padilla MA Unavailable Unavailable Jacob Chavez MD PCP Stanford [place] [id number] Reason for Visit * Reason Onset Date Comments Office Visit Follow Up 09/01/2020 lab request Encounter Details Care Team Description Date Type Department Kathya Mcintosh LPN Office Visit Follow Up (lab request) 09/01/2020 Telephone Cardiology: [facility] [address], [address] [place] [address] Social History Date Tobacco Use Types Packs/Day Years Used Quit: 04/11/1993 Former Smoker Cigarettes 1 30 Smokeless Tobacco: Never Used Drinks/Week oz/Week Comments Alcohol Use 0 Standard drinks or equivalent 0.0 1x/month-sonido Tobias Sex Assigned at Date Recorded Male 06/14/2019 [...] impairment: No documented as of this encounter Ordered Prescriptions Start Date End Date Prescription Sig Dispensed Refills 09/01/2020 09/11/2020 atorvastatin (LIPITOR) 40 Take one 90 tablet 3 mg tabletIndications: tablet by Mixed hyperlipidemia mouth daily. HOLD for now d/t myalgias documented in this encounter Miscellaneous Notes * Telephone Encounter - Kathya Mcintosh LPN - 09/02/2020 11:37 AM CDT I called and spoke to [place], spouse regarding holding the atorvastatin and getti ng labs done. She told me Taylor goes to the lab in [place] not [place] whe re I had faxed the orders. I faxed the orders to [facility] in [facility] at [phone], P [phone]. She will follow up with Taylor regarding holding his atorvastatin. * Telephone Encounter - Kathya Mcintosh LPN - 09/01/2020 10:31 AM CDT I called Taylor and matilde on his phone to call us regarding Elisa's recommendation to hold atorvastatin and get labs done. I also sent him this via . Lab orders fa xed to [facility]ika [facility]ido at [phone]. * Telephone Encounter - Kathya Mcintosh LPN - 09/01/2020 10:01 AM CDT ----- Message from HODA Duff sent at 08/31/2020 1:54 PM CDT ----- Regarding: need labs/hold atorvastatin Mr. Coates is having a lot of pain issues, including myalgias. He was started on fenofibrate earlier this year and is taking atorvastatin 40 mg daily. Let's thor ck a CMP, CPK, vitamin D level and have him hold atorvastatin to see if the pain improves. I didn't think about this until I was dictating my note. Will you ple ase let him know and fax orders for labs to where he has them drawn locally? Can we arrange for 1 month telehealth visit to re-evaluate his sx after holding jackson rvastatin?Thanks, Elisa documented in this encounter Plan of Treatment Order Schedule Name Type Priority Associated Diag noses Expected: 09/01/2020 (Approximate), Expi res: 09/01/2021 COMPREHENSIVE METABOLIC Lab Routine Mixed hyperlipidemia PANEL Expected: 09/01/2020 (Approximate), Expi res: 09/01/2021 CREATINE KINASE-CPK Lab Routine Mixed hype rlipidemia Myalgia Expected: 09/01/2020 (Approximate), Expi res: 09/01/2021 25-OH VITAMIN D (D2 + D3) Lab Routine Mixe d hyperlipidemia Myalgia documented as of this encounter Goals Goal Patient Associated Recent Progress Patient-Stat Aut hor Goal Type Problems ed? Take Medication at Right Time, Medication Yes [place], Right Day, Right Order, With Adherence DEBORAH Jones or Without Food Correctly Note: "get this Afib under control" documented as of this encounter Visit Diagnoses Diagnosis Mixed hyperlipidemia - Primary Myalgia Mylagia and myositis, unspecified documented in this encounter Discontinued Medications Start Date End Date Medication Sig Discontinue Reason 10/30/2019 09/01/2020 atorvastatin (LIPITOR) 40 Take one mg tablet tablet by mouth daily. documented as of this encounter Additional Health Concerns Assessment Noted Time A fall risk assessment has been completed for the pat ient 08/21/2020 2:18 PM CDT PHQ-2 Depression Total Score: 0 06/05/2020 2:54 PM CDT documented as of this encounter
--- OUTSIDE RECORDS SUMMARY | 2020-09-23 10:41 | XMS REPORT | Encounter Summary ---
Author Author [facility] Organization [facility] Address Unknown Phone Unavailable Care Team Providers Care Molecular Technologist Name Role Phone Roberta Huang RN Unavailable Unavailable Susie Recinos Unavailable Unavailable Franklyn Dumont RN 2 Unavailable Stanford Hickman DO Unavailable Johanne Veliz MA Unavailable Unavailable Anny Gonzalez RN Unavailable Unavailable Jose Manuel Oseguera MD Unavailable Unavailable Maxine Vallejo RESIDENTIAL PROGRAM DIRECTOR-Z OS MAINFRAME SYSTEMS PROGRAMMER Unavailable Taran Greenfield MD Unavailable Gladys Fragoso MD Unavailable Mar Pisano MA Unavailable Unavailable Jackei Ellis RESIDENTIAL PROGRAM DIRECTOR-Z OS MAINFRAME SYSTEMS PROGRAMMER Unavailable [phone] Maggie Hagan Unavailable Unavailable Keanu Manzano MD Unavailable Rosario Bass RN Unavailable Unavailable Ciara Ornelas Unavailable Unavailable Nisa Deluna RN Unavailable Unavailable Carmen Padilla MA Unavailable Unavailable Jacob Chavez MD PCP Stanford Hickman [place] [id number] Reason for Visit * Reason Onset Date Comments Follow-up Phone Call 09/10/2020 Encounter Details Care Team Description Date Type Department Filomena Olea, RN Follow-up Phone Call 09/10/2020 [facility]phone [facility] [address], [address] [place] [id number] Social History Date Tobacco Use Types Packs/Day [...] impairment: No documented as of this encounter Miscellaneous Notes * Telephone Encounter - Filomena Olea RN - 09/10/2020 2:57 PM CDT Patient called and LVM stating he has been feeling much better after coming off his statin medication. Pt wondering what the next steps will be now to manage h is cholesterol. Note sent to Dr. Severino for review. * Telephone Encounter - Filomena Olea RN - 09/10/2020 9:40 AM CDT LVM to f/u and see is pt myalgias are improved. documented in this encounter Plan of Treatment Not on filedocumented as of this encounter Goals Goal Patient Associated Recent Progress Patient-Stat Aut hor Goal Type Problems ed? Take Medication at Right Time, Medication Yes [place], Right Day, Right Order, With Adherence Spela, RN or Without Food Correctly Note: "get this [...]
--- OUTSIDE RECORDS SUMMARY | 2020-09-23 10:41 | XMS REPORT | Encounter Summary ---
Author Author [facility] Organization [facility] Address Unknown Phone Unavailable Care Team Providers Care Refuge Manager Name Role Phone Roberta Huang RN Unavailable Unavailable Susie Recinos Unavailable Unavailable Franklyn Dumont RN 2 Unavailable Stanford Hickman DO Unavailable Johanne Veliz MA Unavailable Unavailable Anny Gonzalez RN Unavailable Unavailable Jose Manuel Oseguera MD Unavailable Unavailable Maxine Vallejo BINDING FOLDER MACHINE-WEB DESIGNER DEVELOPER Unavailable Taran Greenfield MD Unavailable Gladys Fragoso MD Unavailable Mar Pisano MA Unavailable Unavailable Jackie Ellis BINDING FOLDER MACHINE-WEB DESIGNER DEVELOPER Unavailable [phone] StaMaggie elam Unavailable Unavailable Keanu Manzano MD Unavailable Rosario Bass RN Unavailable Unavailable Ciara Ornelas Unavailable Unavailable Nisa Deluna RN Unavailable Unavailable Carmen Padilla MA Unavailable Unavailable Jacob Chavez MD PCP Stanford Hickman [place] [id number] Encounter Details Care Team Description Date Type Department Teena Joesph, RN Persistent atrial fibrillation (HCC); Mixed hyperlipidemia; S/P kidney transplant; PVC's (premature ventricular contractions); Coronary artery disease involving [place] coronary artery of [place] heart without angina pectoris 09/01/2020 Orders Only Cardiology: [facility] [address], [address] [place] [address] Social History Date Tobacco Use [...] Procedure Name Priority Date/Time Associated Diag nosis LIPID PROFILE Routine 07/11/2020 Persistent atri al fibrillation (HCC) Mixed hyperlipidemia S/P kidney transplant PVC's (premature ventricular contractions) Coronary artery disease involving [place] coronary artery of [place] heart without angina pectoris documented in this encounter Results * LIPID PROFILE (07/11/2020) Cholesterol 185 OTHER [...] Visit Diagnoses Diagnosis Persistent atrial fibrillation (HCC) Atrial fibrillation Mixed hyperlipidemia S/P kidney transplant Kidney replaced by transplant PVC's (premature ventricular contractio ns) Other premature beats Coronary artery disease involving nativ e coronary artery of [place] heart without angina pectoris documented in this encounter Additional Health Concerns Assessment Noted Time A fall risk assessment has been completed for the pat ient 08/21/2020 2:18 PM CDT PHQ-2 Depression Total Score: 0 06/05/2020 2:54 PM CDT documented as of this encounter
--- OUTSIDE RECORDS SUMMARY | 2020-09-23 10:41 | XMS REPORT | Encounter Summary ---
Author Author [facility] Organization [facility] Address Unknown Phone Unavailable Care Team Providers Care Farmworker Name Role Phone Roberta Huang RN Unavailable Unavailable Susie Recinos Unavailable Unavailable Franklyn Dumont RN 2 Unavailable Stanford Hickman DO Unavailable Johanne Veliz MA Unavailable Unavailable Anny Gonzalez RN Unavailable Unavailable Jose Manuel Oseguera MD Unavailable Unavailable Maxine Vallejo SEWER AND DRAIN TECHNICIAN-QUALITY MANAGER Unavailable Taran Greenfield MD Unavailable Gladys Fragoso MD Unavailable Mar Pisano MA Unavailable Unavailable Jackie Ellis SEWER AND DRAIN TECHNICIAN-QUALITY MANAGER Unavailable [phone] Maggie Hagan Unavailable Unavailable Keanu Manzano MD Unavailable Rosario Bass RN Unavailable Unavailable Ciara Ornelas Unavailable Unavailable Nisa Deluna RN Unavailable Unavailable Carmen Padilla MA Unavailable Unavailable Jacob Chavez MD PCP Stanford Hickman [place] [id number] Reason for Visit * Reason Comments Labs Only Encounter Details Care Team Description Date Type Department Inna Gunn, RN Labs Only 09/10/2020 Documentation Cardiology: [facility] [address], [address] [place] [address] Social History Date Tobacco Use [...] VITAMIN D (D2 + D3) Routine 09/03/2020 CREATINE KINASE-CPK Routine 09/03/2020 COMPREHENSIVE METABOLIC Routine 09/03/2020 PANEL documented in this encounter Results * 25-OH VITAMIN D (D2 + D3) (09/03/2020) Vitamin 54 OTHER OUTSIDE D(25-OH)Total LAB Vitamin <4.0 OTHER OUTSIDE D2,25-OH LAB VITAMIN 54 OTHER OUTSIDE D3,25-OH LAB Specimen Blood - Blood Performing Organization Address City/State/ZIP Code P madhu Number OTHER OUTSIDE LAB * COMPREHENSIVE METABOLIC PANEL (09/03/2020) Sodium 137 OTHER OUTSIDE LAB Potassium 4.5 [...] OUTSIDE LAB eGFR Non OTHER OUTSIDE LAB [place] eGFR OTHER OUTSIDE [place] LAB Anion Gap OTHER OUTSIDE LAB Specimen [...] LAB documented in this encounter Visit Diagnoses Not on filedocumented in this encounter Additional Health Concerns Assessment Noted Time A fall risk assessment has been completed for the pat ient 08/21/2020 2:18 PM CDT PHQ-2 Depression Total Score: 0 06/05/2020 2:54 PM CDT documented as of this encounter
--- OUTSIDE RECORDS SUMMARY | 2020-09-23 10:41 | XMS REPORT | Encounter Summary ---
Author Author [facility] Organization [facility] Address Unknown Phone Unavailable Care Team Providers Care Metrology Manager Name Role Phone Roberta Huang RN Unavailable Unavailable Susie Recinos Unavailable Unavailable Franklyn Dumont RN 2 Unavailable Stanford Hickman DO Unavailable Johanne Veliz MA Unavailable Unavailable Anny Gonzalez RN Unavailable Unavailable Jose Manuel Oseguera MD Unavailable Unavailable Maxine Vallejo PRINTED CIRCUIT BOARD REWORKER-FIRE CHIEF'S AIDE Unavailable Taran Greenfield MD Unavailable Gladys Fragoso MD Unavailable Mar Pisano MA Unavailable Unavailable Jackie Ellis PRINTED CIRCUIT BOARD REWORKER-FIRE CHIEF'S AIDE Unavailable [phone] Maggie Hagan Unavailable Unavailable Keanu Manzano MD Unavailable Rosario Bass RN Unavailable Unavailable Ciara Ornelas Unavailable Unavailable Nisa Deluna RN Unavailable Unavailable Carmen Padilla MA Unavailable Unavailable Jacob Chavez MD PCP Stanford Hickman [place] [id number] Reason for Visit * Reason Onset Date Comments Medication Management 09/09/2020 Tacrolimus Encounter Details Care Team Description Date Type Department Jackie Gant, wood scrap handler Management (Tacrolimus) 09/09/2020 Telephone Transplant: [facility] [address] [place] [id number] Social History Date Tobacco Use Types Packs/Day [...] Date End Date Prescription Sig Dispensed Refills 09/09/2020 tacrolimus (PROGRAF) 0.5 Take two 180 capsule 3 mg capsule capsules by mouth daily. documented in this encounter Miscellaneous Notes * Telephone Encounter - Jackie Gant RN - 09/09/2020 3:04 PM CDT Patient's labs drawn 08/28/[address] Pichardo. Tacrolimus level below tr ough goal at 1.1 on 0.5 mg bid. Patient asked to increase Prograf dose to 1 mg bid. BK PCR not done. New order faxed to [phone]. documented in this encounter Plan of Treatment [...] Diagnoses Not on filedocumented in this encounter Discontinued Medications Start Date End Date Medication Sig Discontinue Reason 06/05/2020 09/09/2020 tacrolimus (PROGRAF) 0.5 Take one mg capsule capsule by mouth daily. documented as of this encounter Additional Health Concerns Assessment Noted Time A fall risk assessment has been completed for the pat ient 08/21/2020 2:18 PM CDT PHQ-2 Depression Total Score: 0 06/05/2020 2:54 PM CDT documented as of this encounter
--- OUTSIDE RECORDS SUMMARY | 2020-09-23 10:41 | XMS REPORT | Encounter Summary ---
Author Author [facility] Organization [facility] Address Unknown Phone Unavailable Care Team Providers Care Unit Clerk Name Role Phone Roberta Huang RN Unavailable Unavailable Susie Recinos Unavailable Unavailable Franklyn Dumont RN 2 Unavailable Stanford Hickman DO Unavailable Johanne Veliz MA Unavailable Unavailable Anny Gonzalez RN Unavailable Unavailable Jose Manuel Oseguera MD Unavailable Unavailable Maxine Vallejo CLOTH CLASSER-CATALOGUE ILLUSTRATOR Unavailable Taran Greenfield MD Unavailable Gladys Fragoso MD Unavailable Mar Pisano MA Unavailable Unavailable Jackie Ellis CLOTH CLASSER-CATALOGUE ILLUSTRATOR Unavailable [phone] Maggie Hagan Unavailable Unavailable Keanu Manzano MD Unavailable Rosario Bass RN Unavailable Unavailable Ciara Ornelas Unavailable Unavailable Nisa Deluna RN Unavailable Unavailable Carmen Padilla MA Unavailable Unavailable Jacob Chavez MD PCP Stanford [place] Un[place] [id number] Encounter Details Care Team Description Date Type Department Adele Pichardo MD [address] [facility] [address] [place] [address] 08/28/2020 Orders Only Transplant: Main [place] [facility], [facility] [address] [facility] [address], [address] [place] [address] Social History Date Tobacco Use [...] Name Priority Date/Time Associated Diag nosis LIPID PANEL, [facility] 08/28/2020 9:16 AM CDT EVEROLIMUS 08/28/2020 9:16 AM CDT URINALYSIS, COMPLETE 08/28/2020 W/RFL CULTURE 9:16 AM CDT TACROLIMUS, HIGHLY 08/28/2020 SENSITIVIE 9:16 AM CDT TOTAL PROTEIN-URINE 08/28/2020 RANDOM 9:16 AM CDT CBC AND DIFF 08/28/2020 9:16 AM CDT URIC ACID 08/28/2020 9:16 AM CDT PHOSPHORUS 08/28/2020 9:16 AM CDT MAGNESIUM 08/28/2020 9:16 AM CDT COMPREHENSIVE METABOLIC 08/28/2020 PANEL 9:16 AM CDT documented in this encounter Results * TACROLIMUS, HIGHLY SENSITIVIE (08/28/2020 9:16 AM [...] analytical performance characteristics have been determined by [employer]. It has not been cleared or approved by the FDA. This assay has been validated pursuant to the CLIA regulations and is used for clinical purposes. REPORT COMMENT: FASTING:YES Test Performed at: [facility] [address] [place] [address] FLORINA LISA DO,MPH Specimen Performing Organization Address [facility] P madhu Number [facility] [address] [place] [address] * TOTAL PROTEIN-URINE RANDOM (08/28/2020 9:16 AM CDT) Creatinine, 138 20 - 320 mg/dL [facility] Ur. Protein/Cr 80 22 - 128 mg/g creat [facility] Ratio, mg/g DIAGNOSTICS Creat Ur. Protein/Cr 0.080 0.022 - 0.128 mg/mg [facility] Ratio, mg/mg creat DIAGNOSTICS Creat Protein, Random 11 5 - 25 mg/dL [facility] Comment: DIAGNOSTICS Test Performed at: [facility] [address] [place] [address] FLORINA LISA DO,MPH Specimen Performing Organization Address [facility] P madhu Number [facility] [address] [place] [address] * URINALYSIS, COMPLETE W/RFL CULTURE (08/28/2020 9:16 AM CDT) Color,UA YELLOW YELLOW [facility] Turbidity,UA CLEAR CLEAR [facility] Specific 1.022 1.001 - 1.035 [facility] pH,UA 6.5 5.0 - 8.0 [facility] [...] /LPF [facility] Comment: DIAGNOSTICS Test Performed at: [facility] [address] FLORINA LISA DO,MPH Specimen Performing Organization Address [facility] P madhu Number [facility] [address] [place] [address] * CBC AND DIFF (08/28/2020 9:16 AM CDT) Pathologist [facility] White Blood 4.4 3.8 - 10.8 [facility] [...] % [facility] Comment: DIAGNOSTICS Test Performed at: [facility] [id number] [place] [phone] FLORINA LISA DO,MPH Specimen Performing Organization Address [facility] P [facility] Number [facility] [address] [place] [address] * EVEROLIMUS (08/28/2020 9:16 AM CDT) Everolimus [...] analytical performance characteristics have been determined by [employer] [place], [place]. It has not been cleared or approved by the U.S. Food and Drug Administration. This assay has been validated pursuant to the CLIA regulations and is used for clinical purposes. Test Performed at: [facility] [address] IAIN MCMILLAN MD,PHD Specimen Performing Organization Address [facility] P [facility] Number [facility] [address] [place] [address] * COMPREHENSIVE METABOLIC PANEL (08/28/2020 9:16 AM CDT) Glucose 103 (H) 65 - 99 mg/dL [facility] Comment: DIAGNOSTICS Fasting reference interval For someone without known diabetes, a glucose value between 100 and 125 mg/dL is consistent with prediabetes and should be confirmed with a follow-up test. Blood Urea 21 7 - 25 mg/dL [facility] Creatinine 1.37 (H) 0.70 - 1.18 mg/dL [facility] Comment: DIAGNOSTICS For patients >49 years of age, the reference limit for Creatinine is approximately 13% higher for people identified as -Chinese. eGFR Non 51 (L) > OR = 60 [facility] mL/min/1.73m2 [facility]AGNOSTICS Chinese eGFR 59 (L) > OR = 60 [facility] Chinese mL/min/1.73m2 [facility] BUN/Creatinine 15 6 - 22 (calc) [facility] Sodium 138 135 - 146 mmol/L [facility] Potassium 4.0 3.5 - 5.3 mmol/L [facility] Chloride 106 98 - 110 mmol/L [facility] CO2 22 20 - 32 mmol/L [facility] Calcium 9.0 8.6 - 10.3 mg/dL [facility] Total Protein 5.9 (L) 6.1 - 8.1 g/dL [facility] Albumin 3.9 3.6 - 5.1 g/dL [facility] Globulin 2.0 1.9 - 3.7 g/dL [facility] (calc) [facility] Albumin/Globuli 2.0 1.0 - 2.5 (calc) [facility] n Ratio [facility] Total Bilirubin 0.7 0.2 - 1.2 mg/dL [facility] Alk Phosphatase 77 35 - 144 U/L [facility] AST (SGOT) 40 (H) 10 - 35 U/L [facility] ALT (SGPT) 34 9 - 46 U/L [facility] Comment: DIAGNOSTICS Test Performed at: [facility] [address] [place] [address] FLORINA LISA DO,MPH Specimen Performing Organization Address [facility] P madhu Number [facility] [address] [place] [address] * URIC ACID (08/28/2020 9:16 AM CDT) Uric Acid 5.7 4.0 - 8.0 mg/dL [facility] Comment: DIAGNOSTICS Therapeutic target for gout patients: <6.0 mg/dL Test Performed at: [facility] [address] [employer] [facility] [place] [address] FLORINA LISA DO,MPH Specimen Performing Organization Address [facility] P madhu Number [facility] [address] [place] [address] * PHOSPHORUS (08/28/2020 9:16 AM CDT) Phosphorus 2.7 2.1 - 4.3 mg/dL [facility] Comment: DIAGNOSTICS Test Performed at: [facility] [address] [address] FLORINA LISA DO,MPH Specimen Performing Organization Address [facility] P madhu Number [facility] [address] [place] [address] * MAGNESIUM (08/28/2020 9:16 AM CDT) Magnesium 1.9 1.5 - 2.5 mg/dL [facility] Comment: DIAGNOSTICS Test Performed at: [facility] [address] [place] [address] FLORINA LISA DO,MPH Specimen Performing Organization Address [facility] P madhu Number [facility] [address] [place] [address] * LIPID PANEL, [facility] (08/28/2020 9:16 AM [...] equation in the estimation of LDL-C. Albert SS et al. BERTO. 2013;310(19): 9536-4065 (http://education.WePay.com/faq/SOW371) Cholesterol/HDL 5.6 (H) <5.0 (calc) [facility] Non HDL 137 (H) <130 mg/dL (calc) [facility] Cholesterol Comment: DIAGNOSTICS For patients with diabetes plus 1 major ASCVD risk factor, treating to a non-HDL-C goal of <100 mg/dL (LDL-C of <70 mg/dL) is considered a therapeutic option. Test Performed at: [facility] [place] [address] [place] [address] FLORINA LISA DO,MPH Specimen Performing Organization Address [facility]/State/ZIP Code P madhu Number [facility] [address] [place] [address] documented in this encounter Visit Diagnoses Not on filedocumented in this encounter Additional Health Concerns Assessment Noted Time A fall risk assessment has been completed for the pat ient 08/21/2020 2:18 PM CDT PHQ-2 Depression Total Score: 0 06/05/2020 2:54 PM CDT documented as of this encounter
--- OUTSIDE RECORDS SUMMARY | 2020-09-23 10:41 | XMS REPORT | Encounter Summary ---
Author Author [facility] Organization [facility] Address Unknown Phone Unavailable Care Team Providers Care Leather Tacker Name Role Phone Roberta Huang RN Unavailable Unavailable Susie Recinos Unavailable Unavailable Franklyn Dumont RN 2 Unavailable Stanford Hickman DO Unavailable Johanne Veliz MA Unavailable Unavailable Anny Gonzalez RN Unavailable Unavailable Jose Manuel Oseguera MD Unavailable Unavailable Maxine Vallejo SUPERVISOR HOSPITALITY HOUSE-AIR DRIER MACHINE OPERATOR Unavailable Taran Greenfield MD Unavailable Gladys Fragoso MD Unavailable Mar Pisano MA Unavailable Unavailable Jackie Ellis SUPERVISOR HOSPITALITY HOUSE-AIR DRIER MACHINE OPERATOR Unavailable [phone] StaMaggie elam Unavailable Unavailable Keanu Manzano MD Unavailable Rosario Bass RN Unavailable Unavailable Ciara Ornelas Unavailable Unavailable Nisa Deluna RN Unavailable Unavailable Carmen Padilla MA Unavailable Unavailable Jacob Chavez MD PCP Stanford [place] [address] Encounter Details Care Team Description Date Type Department Jackie Gant RN 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 Take Medication at Right Time, Medication Yes [place], Right Day, Right Order, With Adherence DEBORAH Jones or Without Food Correctly Note: "get this Afib under control" documented as of this encounter Visit Diagnoses Diagnosis BK viremia - Primary Viremia, unspecified documented in this encounter Additional Health Concerns Assessment Noted Time A fall risk assessment has been completed for the pat ient 08/21/2020 2:18 PM CDT PHQ-2 Depression Total Score: 0 06/05/2020 2:54 PM CDT documented as of this encounter
--- OUTSIDE RECORDS SUMMARY | 2020-09-23 10:41 | XMS REPORT | Encounter Summary ---
Author Author [facility] Organization [facility] Address Unknown Phone Unavailable Care Team Providers Care Procurement Officer Name Role Phone Roberta Huang RN Unavailable Unavailable Susie Recinos Unavailable Unavailable Franklyn Dumont RN 2 Unavailable Stanford Hickman DO Unavailable Johanne Veliz MA Unavailable Unavailable Anny Gonzalez RN Unavailable Unavailable Jose Manuel Oseguera MD Unavailable Unavailable Maxine Vallejo EGG SORTER-RISK MANAGER Unavailable Taran Greenfield MD Unavailable Gladys Fragoso MD Unavailable Mar Pisano MA Unavailable Unavailable Jackie Ellis EGG SORTER-RISK MANAGER Unavailable [phone] Maggie Hagan Unavailable Unavailable Keanu Manzano MD Unavailable Rosario Bass RN Unavailable Unavailable Ciara Ornelas Unavailable Unavailable Nisa Deluna RN Unavailable Unavailable Carmen Padilla MA Unavailable Unavailable Jacob Chavez MD PCP Stanford [place] [id number] Reason for Visit * Reason Onset Date Comments Medication Refill 08/14/2020 Encounter Details Care Team Description Date Type Department Inna Gunn, bowstring maker Refill 08/14/2020 Refill Cardiology: [facility] [address] [facility] [address] [place] [address] Social History Date Tobacco Use Types Packs/Day Years Used Quit: 04/11/1993 Former Smoker Cigarettes 1 30 Smokeless Tobacco: Never Used Drinks/Week oz/Week Comments Alcohol Use 0 Standard drinks or equivalent 0.0 1x/month-sonido No Sex Assigned at Date Recorded Male 06/14/2019 9:45 AM CDT documented as of this encounter Functional Status Date of Assessment Functional Status Response 06/09/2020 Does the patient have a hearing impairment: No 06/09/2020 Does the patient have a visual impairment: Yes 06/09/2020 Does the patient have impaired ambulation: No 06/09/2020 Does the patient have an activity of daily living No (ADL) impairment: 06/09/2020 Does the patient have an instrumental activity of No daily living (IADL) impairment: Date of Assessment Cognitive Status Response 06/09/2020 Does the patient have a cognitive impairment: No documented as of this encounter Ordered Prescriptions Start Date End Date Prescription Sig Dispensed Refills 08/14/2020 08/28/2020 sotaloL (BETAPACE) 80 mg Take 1.5 270 tablet 3 tablet tablets by mouth twice daily. documented in this encounter Plan of Treatment [...] Date End Date Medication Sig Discontinue Reason 10/31/2019 08/14/2020 sotaloL (BETAPACE) 80 mg Take 1.5 Reorder tablet tablets by mouth twice daily. documented as of this encounter Additional Health Concerns Assessment Noted Time A fall risk assessment has been completed for the pat ient 06/09/2020 11:19 AM CDT PHQ-2 Depression Total Score: 0 06/05/2020 2:54 PM CDT documented as of this encounter
--- OUTSIDE RECORDS SUMMARY | 2020-09-23 10:41 | XMS REPORT | Encounter Summary ---
Author Author [facility] Organization [facility] Address Unknown Phone Unavailable Care Team Providers Care Glass Setter Name Role Phone Roberta Huang RN Unavailable Unavailable Susie Recinos Unavailable Unavailable Franklyn Dumont RN 2 Unavailable Stanford Hickman DO Unavailable Johanne Veliz MA Unavailable Unavailable Anny Gonzalez RN Unavailable Unavailable Jose Manuel Oseguera MD Unavailable Unavailable Maxine Vallejo SAW OFFBEARER-ADVANCED MANUFACTURING VICE PRESIDENT Unavailable Taran Greenfield MD Unavailable Gladys Fragoso MD Unavailable Mar Pisano MA Unavailable Unavailable Jackie Ellis SAW OFFBEARER-ADVANCED MANUFACTURING VICE PRESIDENT Unavailable [phone] StaMaggie elam Unavailable Unavailable Keanu Manzano MD Unavailable Rosario Bass RN Unavailable Unavailable Ciara Ornelas Unavailable Unavailable Nisa Deluna RN Unavailable Unavailable Carmen Padilla MA Unavailable Unavailable Jacob Chavez MD PCP Stanford [place]man [place] Un[place] [id number] Encounter Details Care Team Description Date Type Department 08/28/2020 Travel Social History Date Tobacco Use Types [...]
--- OUTSIDE RECORDS SUMMARY | 2020-09-23 10:41 | XMS REPORT | Encounter Summary ---
Author Author [facility] Organization [facility] Address Unknown Phone Unavailable Care Team Providers Care Appellate Court Clerk Name Role Phone Roberta Huang RN Unavailable Unavailable Susie Recinos Unavailable Unavailable Franklyn Dumont RN 2 Unavailable Stanford Hickman DO Unavailable Johanne Veliz MA Unavailable Unavailable Anny Gonzalez RN Unavailable Unavailable Jose Manuel Oseguera MD Unavailable Unavailable Maxine Vallejo HEALTH INSURANCE ASSESSOR-RESIDENTIAL CHILD CARE COUNSELOR Unavailable Taran Greenfield MD Unavailable Gladys Fragoso MD Unavailable Mar Pisano MA Unavailable Unavailable Jackie Ellis HEALTH INSURANCE ASSESSOR-RESIDENTIAL CHILD CARE COUNSELOR Unavailable [phone] Maggie Hagan Unavailable Unavailable Keanu Manzano MD Unavailable Rosario Bass RN Unavailable Unavailable Ciara Ornelas Unavailable Unavailable Nisa Deluna RN Unavailable Unavailable Carmen Padilla MA Unavailable Unavailable Jacob Chavez MD PCP Stanford [place] [id number] Reason for Referral * Consult, Test & Treat (Routine) Referred By Contact Referred To Contact Status Reason Specialty Diagnoses / Procedures Alexei Bernabe MD [address] [place] [address] Icd2 Pt Sports Med [address] [place] [address] New Request Specialty Services Physical Therapy Diagnoses Required Neck pain Myalgia, other site Spondylosis of lumbar region without myelopathy or radiculopathy Answer Question Therapist Discretion Frequency Therapist Discretion Duration Pain Reduction, Improve Extremity Flexibility, Improve Muscle Endurance Goals Myofascial release/Soft tissue mobilization - myofascial release for neck MANUAL TECHNIQUES Lumbar/Core Stabilization EXERCISE Electronically signed by Alexei Bernabe MD at Reason for Visit * Reason Comments Pain Encounter Details Care Team Description Date Type Department Alexei Bernabe MD [address] [place] [address] Neck pain (Primary Dx); Myalgia, other site; Spondylosis of lumbar region without myelopathy or radiculopathy 08/21/2020 Office Visit [facility] Intervent'nl Pain: [facility]: [id number] [place] [id number] Social History Date Tobacco Use Types Packs/Day [...] Signs Reading Time Taken Comments Vital Sign - - Blood Pressure - - Pulse - - Temperature - - Respiratory Rate - - Oxygen Saturation - - Inhaled Oxygen Concentration 72.6 kg (160 lb) 08/21/2020 2:18 PM CDT per pt Weight 175.3 cm (5' 9") 08/21/2020 2:18 PM CDT Height 23.63 08/21/2020 2:18 PM CDT Body Mass Index documented in [...] Date End Date Prescription Sig Dispensed Refills 08/21/2020 baclofen (LIORESAL) 10 mg Take one 270 tablet 1 tabletIndications: Neck tablet by pain, Myalgia, other site mouth three times daily as needed. documented in this encounter Progress Notes * Alexei Bernabe MD - 08/21/2020 2:15 PM CDT TELEHEALTH (TELEMEDICINE) ENCOUNTER Meeting Platform: [employer] Obtained patient's verbal consent to treat them and their agreement to LILLY [facility] policy and NPP via this telehealth visit during the [facility] Provider State: [place] Patient State: [place] Time Start: 1436 Time End: 1448 [facility] CLIN[facility] NOTE SUBJECTIVE: Mr. Coates states the prior TESI worked great. However, he continue s to have pain in his shoulder blades. The pain occurs when he is active. He s tates that when it happens, his shoulders lock up and he has headaches when he's sleep. He states that a lot of his pain is muscle related. He notes also havi ng low back and bilateral hip pain (right is more constant that the left). He s tates when they hurt, they hurt about the same. This pain does not radiate down the legs. The pain stays in the back and hips. Procedure: T12-L1 TESI Procedure Date: 07/03/20 Pain site specific NRS: 0/10 Patient reported % relief: 100% Review of Systems Constitutional: Negative. HENT: Negative. Eyes: Negative. Respiratory: Negative. Cardiovascular: Negative. Gastrointestinal: Negative. Endocrine: Negative. Genitourinary: Negative. Musculoskeletal: Positive for arthralgias, back pain and neck pain. Skin: Negative. Allergic/Immunologic: Positive for environmental allergies. Neurological: Negative. Hematological: Bruises/bleeds easily. Psychiatric/Behavioral: Positive for sleep disturbance. All other systems reviewed and are negative. Current Outpatient Medications: acetaminophen (TYLENOL) 500 mg tablet, Take two tablets by mouth every 6 ho urs while awake. Max of 4,000 mg of acetaminophen in 24 hours., Disp: 200 tablet , Rfl: 0 albuterol sulfate (PROAIR HFA) 90 mcg/actuation aerosol inhaler, Inhale 2 p uffs by mouth into the lungs every 6 hours as needed for Wheezing or Shortness o f Breath. Shake well before use., Disp: , Rfl: aspirin 81 mg chewable tablet, Chew 1 Tab by mouth daily. Take with food. R esume taking 06/21/16 (Patient taking differently: Chew 81 mg by mouth daily.), Di sp: 90 Tab, Rfl: 3 atorvastatin (LIPITOR) 40 mg tablet, Take one tablet by mouth daily., Disp: 90 tablet, Rfl: 3 baclofen (LIORESAL) 10 mg tablet, Take one tablet by mouth three times angela y as needed., Disp: 270 tablet, Rfl: 1 calcium carbonate/vitamin D-3 (CALCIUM 500+D) 1250 mg/200 unit tablet, Take 1 tablet by mouth daily. Calcium Carb 1250mg delivers 500mg elemental Ca (Patie nt taking differently: Take 1 tablet by mouth twice daily. Calcium Carb 1250mg d elivers 500mg elemental Ca), Disp: 180 tablet, Rfl: 1 clindamycin (CLINDA-DERM) 1 % topical solution, Apply topically to face and scalp every morning, Disp: 60 mL, Rfl: 11 everolimus (immunosuppressive) (ZORTRESS) 0.5 mg tablet, Take three tablets by mouth twice daily., Disp: 540 tablet, Rfl: 3 famotidine (PEPCID) 20 mg tablet, Take one tablet by mouth twice daily., Di sp: 180 tablet, Rfl: 3 fenofibrate nanocrystallized (TRICOR) 145 mg tablet, Take one tablet by leslie th daily. Take with food., Disp: 90 tablet, Rfl: 3 finasteride (PROSCAR) 5 mg tablet, Take 5 mg by mouth daily., Disp: , Rfl: fluticasone (FLONASE) 50 mcg/actuation nasal spray, Apply 1 spray to each n ostril as directed daily as needed., Disp: , Rfl: HYDROcodone/acetaminophen(+) (NORCO) 10/325 mg tablet, Take 1 Tab by mouth every 6 hours as needed for Pain, Disp: , Rfl: icosapent ethyL (VASCEPA) 1 gram capsule, Take two capsules by mouth twice daily with meals., Disp: 120 capsule, Rfl: 3 lisinopriL (ZESTRIL) 20 mg tablet, Take one tablet by mouth daily., Disp: 9 0 tablet, Rfl: 3 magnesium oxide (MAG-OX) 400 mg (241.3 mg magnesium) tablet, Take one table t by mouth daily., Disp: 180 tablet, Rfl: 3 nitroglycerin (NITROSTAT) 0.4 mg tablet, Place one tablet under tongue ever y 5 minutes as needed for Chest Pain. Max of 3 tablets, call 911., Disp: 25 tabl et, Rfl: 3 Cneab-9-USJ-EPA-Fish Oil (FISH OIL) 1,000 mg (120 mg-180 mg) cap, Take 1,00 0 mg by mouth twice daily., Disp: , Rfl: predniSONE (DELTASONE) 5 mg tablet, Take one tablet by mouth daily with sera akfast., Disp: 90 tablet, Rfl: 0 sotaloL (BETAPACE) 80 mg tablet, Take 1.5 tablets by mouth twice daily., Di sp: 270 tablet, Rfl: 3 tacrolimus (PROGRAF) 0.5 mg capsule, Take one capsule by mouth daily., Disp : 90 capsule, Rfl: 3 tiZANidine (ZANAFLEX) 4 mg tablet, Take one tablet by mouth at bedtime as n eeded., Disp: 60 tablet, Rfl: 1 Allergies Allergen Reactions Oxiconazole HEADACHE Severe headaches Physical examination: VS: Ht 175.3 cm (69") | Wt 72.6 kg (160 lb) Comment: per pt | BMI 23.63 kg/m Pain Score: Eight Patient has h/o HTN: Yes Patient reports being afebrile Yes Exam performed by instructing patient to perform various maneuvers and provide f eedback while I personally visualized the patient exam. General: The patient is a well-developed, well nourished 74 y.o. male in no acut e distress. HEENT: Head is normocephalic and atraumatic. Pupils are equal bilaterally. Cardiac: Patient reports regular pulse on palpation. Pulmonary: The patient has unlabored respirations and bilateral symmetric chest excursion. Abdomen: Soft, nontender, and nondistended. There is no rebound or guarding repo rted with patient palpation. Extremities: No peripheral edema reported by patient or seen on video. Neurologic: The patient is alert and oriented times 3. Cranial nerves II through XII are intact without any focal deficits. Musculoskeletal: Gait is normal. C-Spine There is no paraspinal tenderness. Paraspinal muscle tone is normal. ROM with flexion, extension, rotation, and lateral bending is intact. Patient believes strength is equal and adequate bilaterally in the flexors and e xtensors of the bilateral upper extremities. Delvalle's is negative bilaterally. L-Spine There is no paraspinal tenderness. Paraspinal muscle tone is normal. Facet loading is negative. There is no tenderness or radiating pain with palpation over the SI joints or gr eater trochanteric bursae bilaterally. ROM with flexion, extension, rotation, and lateral bending is intact. Patient believes strength is equal and adequate bilaterally in the flexors and e xtensors of the bilateral lower extremities. SLR is negative bilaterally. IMPRESSION: 1. Neck pain 2. Myalgia, other site 3. Spondylosis of lumbar region without myelopathy or radiculopathy PLAN: 74 year old male with neck and thoracic back pain. The prior TESI has he lped him with the aching deep thoracic pain. However, he continues to have pain that seems myofascial. I would start him on myofascial release PT and will swi tch his muscle relaxant up from tizanidine to baclofen (his insurance does not a llow for other muscle relaxants as they are not on formulary). Will follow up i n 2 months. If the pain persists, could perform TPI in the rhomboids and supras capular muscles. He notes some hip pain that may be spondylosis related. Will plan for PT for this area as well. If pain persists, consider MBB in future napoleon leigh ann hip injections pending pain pattern. 1. Physician ordered PT 2. Stop tizanidine, try baclofen (only other muscle relaxant that insurance allo ws for) 3. Follow up in 2 months Alexei Bernabe MD Department of Anesthesiology and Pain Medicine [facility] Personal Pager [phone] documented in this encounter Plan of Treatment Order Schedule Name Type Priority Associated Diag noses Ordered: 08/21/2020 AMB REFERRAL TO PHYSICAL Outpatient Routine Neck pain OR OCCUPATIONAL THERAPY Referral Myalgia, other site Spondylosis of lumbar region without myelopathy or radiculopathy documented as of this encounter Goals Goal Patient Associated Recent Progress Patient-Stat Aut hor Goal Type Problems ed? Take Medication at Right Time, Medication Yes [place], Right Day, Right Order, With Adherence DEBORAH Jones or Without Food Correctly Note: "get this Afib under control" documented as of this encounter Visit Diagnoses Diagnosis Neck pain - Primary Cervicalgia Myalgia, other site Spondylosis of lumbar region without my elopathy or radiculopathy Lumbosacral spondylosis without myelopa thy documented in this encounter Additional Health Concerns Assessment Noted Time A fall risk assessment has been completed for the pat ient 08/21/2020 2:18 PM CDT PHQ-2 Depression Total Score: 0 06/05/2020 2:54 PM CDT documented as of this encounter
--- OUTSIDE RECORDS SUMMARY | 2020-09-23 10:41 | XMS REPORT | Encounter Summary ---
Author Author [facility] Organization [facility] Address Unknown Phone Unavailable Care Team Providers Care Finance And Administration Manager Name Role Phone Roberta Huang RN Unavailable Unavailable Susie Recinos Unavailable Unavailable Franklyn Dumont RN 2 Unavailable Stanford Hickman DO Unavailable Johanne Veliz MA Unavailable Unavailable Anny Gonzalez RN Unavailable Unavailable Jose Manuel Oseguera MD Unavailable Unavailable Maxine Vallejo WORKFORCE DEVELOPMENT PROGRAM DIRECTOR-FISHING BOAT CAPTAIN Unavailable Taran Greenfield MD Unavailable Gladys Fragoso MD Unavailable Mar Pisano MA Unavailable Unavailable Jackie Ellis WORKFORCE DEVELOPMENT PROGRAM DIRECTOR-FISHING BOAT CAPTAIN Unavailable [phone] StaMaggie elam Unavailable Unavailable Keanu Manzano MD Unavailable Rosario Bass RN Unavailable Unavailable Ciara Ornelas Unavailable Unavailable Nisa Deluna RN Unavailable Unavailable Carmen Padilla MA Unavailable Unavailable Jacob Chavez MD PCP Stanford [place] [id number] Reason for Visit * Reason Onset Date Comments Lab Request 08/28/2020 requested lipid pro file Encounter Details Care Team Description Date Type Department Kathya Mcintosh LPN Lab Request (requested lipid profile) 08/28/2020 Telephone Cardiology: [facility] [address], [address] [place] [address] Social History Date Tobacco Use Types Packs/Day [...] Telephone Encounter - Kathya Mcintosh LPN - 08/28/2020 2:14 PM CDT I called Devika Guido and requested the patients recent lipid profile. documented in this encounter Plan of Treatment [...]
--- OUTSIDE RECORDS SUMMARY | 2020-09-23 10:41 | XMS REPORT | Encounter Summary ---
Author Author [facility] Organization [facility] Address Unknown Phone Unavailable Care Team Providers Care Electric Fork Operator Name Role Phone Roberta Huang RN Unavailable Unavailable Susie Recinos Unavailable Unavailable Franklyn Dumont RN 2 Unavailable Stanford Hickman DO Unavailable Johanne Veliz MA Unavailable Unavailable Anny Gonzalez RN Unavailable Unavailable Jose Manuel Oseguera MD Unavailable Unavailable Maxine Vallejo SHEARING SHED WORKER-SALES ENGAGEMENT EXECUTIVE Unavailable Taran Greenfield MD Unavailable Gladys Fragoso MD Unavailable Mar Pisano MA Unavailable Unavailable Jackie Ellis SHEARING SHED WORKER-SALES ENGAGEMENT EXECUTIVE Unavailable [phone] Maggie Hagan Unavailable Unavailable Keanu Manzano MD Unavailable Rosario Bass RN Unavailable Unavailable Ciara Ornelas Unavailable Unavailable Nisa Deluna RN Unavailable Unavailable Carmen Padilla MA Unavailable Unavailable Jacob Chavez MD PCP Stanford Hickman [place] [id number] Reason for Visit * Reason Onset Date Comments Follow Up 09/11/2020 regarding statin Encounter Details Care Team Description Date Type Department Tyler Perkins LPN Follow Up (regarding statin) 09/11/2020 Telephone Cardiology: [facility] [address] [place] [address] Social History Date Tobacco Use Types Packs/Day [...] as of this encounter Miscellaneous Notes * Addendum Note - Tyler Perkins LPN - 09/11/2020 9:43 AM CDT Addended by: TYLER PERKINS on: 09/11/2020 09:43 AM Modules accepted: Orders * Telephone Encounter - Tyler Perkins LPN - 09/11/2020 9:37 AM CDT Taylor called back and he was fine with scheduling a telehealth appt with ALESSANDRA lu 10/07. He stated he feels much better since stopping the atorvastatin. * Telephone Encounter - Tyler Perkins LPN - 09/11/2020 9:09 AM CDT I lm with Taylor regarding a follow up appt with ALESSANDRA [place]. I offered him 10/07 at the [facility] location at 8 am. I offered him an in person appt or telehealth since [place] from . * Telephone Encounter - Tyler Perkins LPN - 09/11/2020 9:02 AM CDT ----- Message from Janak Severino MD sent at 09/10/2020 5:24 PM CDT ----- Filomena-please continue to hold the statin. Please have him follow-up with Elisa in 2 to 3 weeks for reassessment, repeat lipids and consideration for alternative t herapies including PCSK9 inhibitor/Repatha. Thanks RG documented in this encounter Plan of Treatment [...] Date End Date Medication Sig Discontinue Reason 09/01/2020 09/11/2020 atorvastatin (LIPITOR) 40 Take one Side effects mg tabletIndications: tablet by Mixed hyperlipidemia mouth daily. HOLD for now d/t myalgias documented as of this encounter Additional Health Concerns Assessment Noted Time A fall risk assessment has been completed for the pat ient 08/21/2020 2:18 PM CDT PHQ-2 Depression Total Score: 0 06/05/2020 2:54 PM CDT documented as of this encounter
--- OUTSIDE RECORDS SUMMARY | 2020-09-23 10:41 | XMS REPORT | Encounter Summary ---
Author Author [facility] Organization [facility] Address Unknown Phone Unavailable Care Team Providers Care Power Plant Operations Manager Name Role Phone Roberta Huang RN Unavailable Unavailable Susie Recinos Unavailable Unavailable Franklyn Dumont RN 2 Unavailable Stanford Hickman DO Unavailable Johanne Veliz MA Unavailable Unavailable Anny Gonzalez RN Unavailable Unavailable Jose Manuel Oseguera MD Unavailable Unavailable Maxine Vallejo ALIGNMENT SPECIALIST-NETWORK FIELD ENGINEER Unavailable Taran Greenfield MD Unavailable Gladys Fragoso MD Unavailable Mar Pisano MA Unavailable Unavailable Jackie Ellis ALIGNMENT SPECIALIST-NETWORK FIELD ENGINEER Unavailable [phone] Maggie Hagan Unavailable Unavailable Keanu Manzano MD Unavailable Rosario Bass RN Unavailable Unavailable Ciara Ornelas Unavailable Unavailable Nisa Deluna RN Unavailable Unavailable Carmen Padilla MA Unavailable Unavailable Jacob Chavez MD PCP Stanford [place] [id number] Encounter Details Care Team Description Date Type Department Daniel Spence Hypercholesterolemia; Kidney replaced by transplant; Encounter for therapeutic drug monitoring; Encounter for long-term (current) use of high-risk medication; Urinary tract infection without hematuria, site unspecified; 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 Orders Only [facility] [address] [place] [address] Social History Date Tobacco Use [...] Procedure Name Priority Date/Time Associated Diag nosis URINALYSIS MICROSCOPIC Routine 08/28/2020 Kidney replaced by [...] infection without hematuria, site unspecified BK viremia EVEROLIMUS BLOOD Routine 08/28/2020 Kidney replac ed [...] Routine 08/28/2020 Hypercholestero lemia 9:16 AM CDT COMPREHENSIVE METABOLIC Routine 08/28/2020 Kidney replaced by PANEL 9:16 AM CDT transplant Encounter for therapeutic drug monitoring Encounter for long-term (current) use of high-risk medication Urinary tract infection without hematuria, site unspecified BK viremia documented in this encounter Results * EVEROLIMUS BLOOD (08/28/2020 9:16 AM CDT) Everolimus 5.0 [facility] Specimen Narrative Performed At [facility] Outside Lab Verified by Daniel Spence on 09/04/2020. Performing Organization Address City/State/ZIP Code P madhu Number [facility] INTERFACE * URINALYSIS MICROSCOPIC REFLEX TO CULTURE (08/28/2020 9:16 AM CDT) WBCs,UA NONE SEEN [facility] RBCs,UA NONE SEEN [facility] Squamous NONE SEEN [facility] Epithelial Cells Bacteria,UA NONE SEEN [facility] Specimen Narrative Performed At [facility] Outside Lab Verified by Daniel Spence on 09/02/2020. Performing Organization Address City/State/ZIP Code P madhu Number [facility] INTERFACE * URINALYSIS DIPSTICK REFLEX TO CULTURE (08/28/2020 9:16 AM CDT) Color,UA YELLOW [facility] Turbidity,UA CLEAR [facility] Specific 1.022 [facility] Amery-Urine pH,UA 6.5 [facility] Glucose,UA NEGATIVE [facility] Bilirubin,UA NEGATIVE [facility] Ketones,UA NEGATIVE [facility] Blood,UA NEGATIVE [facility] Protein,UA NEGATIVE [facility] Nitrite,UA NEGATIVE [facility] Leukocytes,UA NEGATIVE [facility] Specimen Narrative Performed At [facility] Outside Lab Verified by Daniel Spence on 09/02/2020. Performing Organization Address City/State/ZIP Code P madhu Number [facility] INTERFACE * CBC AND DIFF (08/28/2020 9:16 AM CDT) White Blood 4.4 [facility] Cells RBC 4.29 [facility] Hemoglobin 11.5 (L) 13.2 - 17.1 [facility] Hematocrit 35.4 (L) 38.5 - 50.0 [facility] MCV 82.5 [facility] MCH 26.8 (L) 27.0 - 33.0 [facility] MCHC 32.5 [facility] RDW 15.0 [facility] Platelet Count 240 [facility] MPV 9.5 [facility] Absolute 2,605 [facility] Neutrophil Count Absolute Lymph 1,166 [facility] Count Absolute 568 [facility] Monocyte Count Absolute 31 [facility] Eosinophil Count Absolute 31 [facility] Basophil Count Neutrophils 59.2 [facility] Lymphocytes 26.5 [facility] Monocytes 12.9 [facility] Eosinophil 0.7 [facility] Basophil 0.7 [facility] Specimen Narrative Performed At [facility] Outside Lab Verified by Daniel Bebe on 09/02/2020. Performing Organization Address City/State/ZIP Code P madhu Number LABDE INTERFACE * PROTEIN/CR RATIO,UR RAN (08/28/2020 9:16 AM CDT) Creatinine, 138 [facility] Random Protein/CR 0.080 [facility] ratio Protein, Random 11 [facility] Specimen Urine Narrative Performed At [facility] Outside Lab Verified by Daniel Bebe on 09/02/2020. Performing Organization Address City/State/ZIP Code P madhu Number LABDE INTERFACE * URIC ACID (08/28/2020 9:16 AM CDT) Uric Acid 5.7 [facility] Specimen Narrative Performed At [facility] Outside Lab Verified by Danielitalia Binghamht on 09/02/2020. Performing Organization Address City/State/ZIP Code P madhu Number LABDE INTERFACE * PHOSPHORUS (08/28/2020 9:16 AM CDT) Phosphorus 2.7 [facility] INTER[facility] Specimen Narrative Performed At [facility] INTER[facility] Outside Lab Verified by Daniel Bebe on 09/02/2020. Performing Organization Address City/State/ZIP Code P madhu Number LABDE INTERFACE * MAGNESIUM (08/28/2020 9:16 AM CDT) Magnesium 1.9 [facility] Specimen Narrative Performed At [facility] Outside Lab Verified by Daniel Bebe on 09/02/2020. Performing Organization Address City/State/ZIP Code P madhu Number LAB[facility] INTERFACE * COMPREHENSIVE METABOLIC PANEL (08/28/2020 9:16 AM CDT) Glucose 103 (H) 65 - 99 mg/dL [facility] Blood Urea 21 mg/dL [facility] Nitrogen Creatinine 1.37 (H) 0.70 - 1.18 mg/dL LAB[facility] INTERF [place] eGFR Non 51 (L) >=60 mL/min/1.73m2 LAB[facility] INTER FACE eGFR 59 (L) >=60 mL/min/1.73m2 LABDE INTER FACE Turkish Sodium 138 mmol/L [facility] Potassium 4.0 mmol/L [facility] Chloride 106 mmol/L [facility] CO2 22 mmol/L [facility] Calcium 9.0 mg/dL [facility] Total Protein 5.9 (L) 6.1 - 8.1 g/dL [facility] Albumin 3.9 g/dL [facility] Total Bilirubin 0.7 mg/dL [facility] INTERFAC E Alk Phosphatase 77 U/L [facility] INTERFAC E AST (SGOT) 40 (H) 10 - 35 U/L [facility] ALT (SGPT) 34 U/L [facility] INTER[facility] Specimen Narrative Performed At [facility] INTER[facility] Outside Lab Verified by Daniel Spence on 09/02/2020. Performing Organization Address City/State/ZIP Code P madhu Number LABDE INTERFACE * LIPID PROFILE (08/28/2020 9:16 AM CDT) Cholesterol 167 [facility] HDL 30 (L) >=40 [facility] Triglycerides 302 (H) <150 [facility] LDL 97 [facility] INTERFACE Cholesterol/HDL 5.6 (H) <5.0 LAB[facility] INTERFAC E Ratio Non HDL 137 (H) <130 [facility] INTERFACE Cholesterol Specimen Blood Narrative Performed At [facility] INTER[facility] Outside Lab Verified by Daniel Spence on 09/02/2020. Performing Organization Address City/State/ZIP Code P madhu Number LABDE INTERFACE documented in this encounter Visit Diagnoses Diagnosis Hypercholesterolemia Pure hypercholesterolemia Kidney replaced by transplant Encounter for therapeutic drug monitori ng Encounter for long-term (current) use o f high-risk medication Encounter for long-term (current) use o f other medications Urinary tract infection without hematur ia, site unspecified BK viremia Viremia, unspecified documented in this encounter Additional Health Concerns Assessment Noted Time A fall risk assessment has been completed for the pat ient 08/21/2020 2:18 PM CDT PHQ-2 Depression Total Score: 0 06/05/2020 2:54 PM CDT documented as of this encounter
--- OUTSIDE RECORDS SUMMARY | 2020-09-23 10:41 | XMS REPORT | Encounter Summary ---
Author Author [facility] Organization [facility] Address Unknown Phone Unavailable Care Team Providers Care Accounting Assistant Name Role Phone Roberta Huang RN Unavailable Unavailable Susie Recinos Unavailable Unavailable Franklyn Dumont RN 2 Unavailable Stanford Hickman DO Unavailable Johanne Veliz MA Unavailable Unavailable Anny Gonzalez RN Unavailable Unavailable Jose Manuel Oseguera MD Unavailable Unavailable Maxine Vallejo HYDROSTATIC TUBING TESTER-VESSEL CAPTAIN Unavailable Taran Greenfield MD Unavailable Gladys Fragoso MD Unavailable Mar Pisano MA Unavailable Unavailable Jackie Ellis HYDROSTATIC TUBING TESTER-VESSEL CAPTAIN Unavailable [phone] Maggie Hagan Unavailable Unavailable Keanu Manzano MD Unavailable Rosario Bass RN Unavailable Unavailable Ciara Ornelas Unavailable Unavailable Nisa Deluna RN Unavailable Unavailable Carmen Padilla MA Unavailable Unavailable Jacob Chavez MD PCP Stanford H[place] [id number] Encounter Details Care Team Description Date Type Department Jackie Gant RN Kidney replaced by transplant (Primary D x); Encounter for therapeutic drug monitoring; Encounter for long-term (current) use of high-risk medication; Urinary tract infection without hematuria, site unspecified; BK viremia; Hypercholesterolemia 07/31/2020 Orders Only Transplant: [facility] [address] [place] [address] Social History Date Tobacco Use Types Packs/Day Years Used Quit: 04/11/1993 Former Smoker Cigarettes 1 30 Smokeless Tobacco: Never Used Drinks/Week oz/Week Comments Alcohol Use 0 Standard drinks or equivalent 0.0 1x/month-sonido No Sex Assigned at Date Recorded Male 06/14/2019 9:45 AM CDT Date Recorded COVID-19 Exposure Response 07/03/2020 11:05 AM CDT In the last month, have you [...] Schedule Name Type Priority Associated Diag noses Weekly for 25 Occurrences starting 07/31 until 07/31/2021, 1 completed CBC AND DIFF Lab Routine Kidney replaced by transplant Encounter for therapeutic drug monitoring Encounter for long-term (current) use of high-risk medication Urinary tract infection without hematuria, site unspecified BK viremia Weekly for 25 Occurrences starting 07/31 until 07/31/2021, 1 completed COMPREHENSIVE METABOLIC Lab Routine Kidney replaced by PANEL transplant Encounter for therapeutic drug monitoring Encounter for long-term (current) use of high-risk medication Urinary tract infection without hematuria, site unspecified BK viremia Weekly for 25 Occurrences starting 07/31 until 07/31/2021, 1 completed EVEROLIMUS BLOOD Lab Routine Kidney replac ed by transplant Encounter for therapeutic drug monitoring Encounter for long-term (current) use of high-risk medication Urinary tract infection without hematuria, site unspecified BK viremia Weekly for 25 Occurrences starting 07/31 until 07/31/2021, 1 completed MAGNESIUM Lab Routine Kidney replaced by transplant Encounter for therapeutic drug monitoring Encounter for long-term (current) use of high-risk medication Urinary tract infection without hematuria, site unspecified BK viremia Weekly for 25 Occurrences starting 07/31 until 07/31/2021, 1 completed PHOSPHORUS Lab Routine Kidney replaced by transplant Encounter for therapeutic drug monitoring Encounter for long-term (current) use of high-risk medication Urinary tract infection without hematuria, site unspecified BK viremia Weekly for 25 Occurrences starting 07/31 until 07/31/2021, 1 completed PROTEIN/CR RATIO,UR RAN Lab Routine Kidney replaced by transplant Encounter for therapeutic drug monitoring Encounter for long-term (current) use of high-risk medication Urinary tract infection without hematuria, site unspecified BK viremia Weekly for 25 Occurrences starting 07/31 until 07/31/2021 TACROLIMUS LC-MS/MS Lab Routine Kidney rep laced by transplant Encounter for therapeutic drug monitoring Encounter for long-term (current) use of high-risk medication Urinary tract infection without hematuria, site unspecified BK viremia Weekly for 25 Occurrences starting 07/31 until 07/31/2021, 1 completed URIC ACID Lab Routine Kidney replaced by transplant Encounter for therapeutic drug monitoring Encounter for long-term (current) use of high-risk medication Urinary tract infection without hematuria, site unspecified BK viremia Weekly for 25 Occurrences starting 07/31 until 07/31/2021, 1 completed URINALYSIS DIPSTICK Lab Routine Kidney rep laced by REFLEX TO CULTURE transplant Encounter for therapeutic drug monitoring Encounter for long-term (current) use of high-risk medication Urinary tract infection without hematuria, site unspecified BK viremia Weekly for 25 Occurrences starting 07/31 until 07/31/2021, 1 completed URINALYSIS MICROSCOPIC Lab Routine Kidney replaced by REFLEX TO CULTURE transplant Encounter for therapeutic drug monitoring Encounter for long-term (current) use of high-risk medication Urinary tract infection without hematuria, site unspecified BK viremia documented as of this encounter Goals Goal Patient Associated Recent Progress Patient-Stat Aut hor Goal Type Problems ed? Take Medication at Right Time, Medication Yes [place], Right Day, Right Order, With Adherence DEBORAH Jones or Without Food Correctly Note: "get this Afib under control" documented as of this encounter Results * LIPID PROFILE (08/28/2020 9:16 AM CDT) Cholesterol 167 [facility] HDL 30 (L) >=40 [facility] Triglycerides 302 (H) <150 [facility] LDL 97 [facility] Cholesterol/HDL 5.6 (H) <5.0 [facility] E Ratio Non HDL 137 (H) <130 [facility] Cholesterol Specimen Blood Narrative Performed At [facility] Outside Lab Verified by Danielitalia Spence on 09/02/2020. Performing Organization Address City/State/ZIP Code P madhu Number [facility] * URINALYSIS MICROSCOPIC REFLEX TO CULTURE (08/28/2020 9:16 AM CDT) WBCs,UA NONE SEEN [facility] RBCs,UA NONE SEEN [facility] Squamous NONE SEEN [facility] Epithelial Cells Bacteria,UA NONE SEEN [facility] Specimen Narrative Performed At [facility] Outside Lab Verified by Danielitalia Spence on 09/02/2020. Performing Organization Address City/[facility] Code P madhu Number [facility] * URINALYSIS DIPSTICK REFLEX TO CULTURE (08/28/2020 9:16 AM CDT) Color,UA YELLOW [facility] Turbidity,UA CLEAR [facility] Specific 1.022 [facility] [place]-Urine pH,UA 6.5 [facility] Glucose,UA NEGATIVE [facility] [...] [facility] Outside Lab Verified by Daniel [place] on 09/02/2020. Performing Organization Address City/State/ZIP Code [...] [facility] Lab Verified by Daniel [place] on 09/02/2020. Performing Organization Address City/State/ZIP Code P madhu Number [facility] * MAGNESIUM (08/28/2020 9:16 AM CDT) Magnesium 1.9 [facility] Specimen Narrative Performed At [facility] Lab Verified by Danielitalia Spence on 09/02/2020. Performing Organization Address City/State/ZIP Code P madhu Number [facility] * EVEROLIMUS BLOOD (08/28/2020 9:16 AM CDT) Everolimus 5.0 [facility] Specimen Narrative Performed At [facility] Lab Verified by Danielitalia Spence on 09/04/2020. Performing Organization Address City/State/ZIP [...] 59 (L) >=60 mL/min/1.73m2 [facility] [place] Sodium 138 mmol/L [facility] Potassium 4.0 [...] documented in this encounter Visit Diagnoses Diagnosis Kidney replaced by transplant - Primary Encounter for therapeutic drug monitori ng Encounter for long-term (current) use o f high-risk medication Encounter for long-term (current) use o f other medications Urinary tract infection without hematur ia, site unspecified BK viremia Viremia, unspecified Hypercholesterolemia Pure hypercholesterolemia documented in this encounter Additional Health Concerns Assessment Noted Time A fall risk assessment has been completed for the pat ient 06/09/2020 11:19 AM CDT PHQ-2 Depression Total Score: 0 06/05/2020 2:54 PM CDT documented as of this encounter
== END 2020-09-18 21:55 | disposition home or self-care (01) ==
LOC: EDUNIT# 18:56 → ER 18:58
DX: U07.1 COVID-19 (principal); K52.9 Noninfective gastroenteritis and colitis, unspecified
CPT/HCPCS: 36415; 71045; 80053; 81000; 83605; 84145; 85007; 85025; 85610; 85730; 86141; 87040; 87088

== ENCOUNTER → 2021-02-06 | Outpatient (CLI) | payer MEDICARE ==
[~2021-02-06] MED LIST changes: +PROM25TA14 PO
--- NOTE | 2021-02-06 13:31 | Diagnostic Imaging Report ---
PROCEDURE: CT of the chest without contrast. TECHNIQUE: Multiple contiguous axial images were obtained through the chest without the use of intravenous contrast. Auto Exposure Controls were utilized during the CT exam to meet ALARA standards for radiation dose reduction. INDICATION: Pulmonary nodule. FINDINGS: There are no prior CTs of the chest available for comparison. The plain film examination of the chest performed on 09/18/2020 failed to show any sign of an acute abnormality. In retrospect, there was a vague area of slightly increased density in the right suprahilar region on the plain film. On this exam, however, there is no evidence for a solid mass in this area. Even so, there is a vague 1.6 cm area of slightly increased density within the right upper lobe in this region. Just cephalad and lateral to this, there is another somewhat denser 1.2 cm parenchymal opacity. These findings are of uncertain etiology. They do not have the typical appearance of a neoplastic mass. They could be secondary to a small focus of pneumonia. It may prove worthwhile to have a short-term (three-month) follow-up CT chest exam for further study. There are coarse interstitial densities adjacent to the lingula. I suspect these are chronic in nature. The lungs are otherwise clear. There is no sign of a pleural effusion. The heart size is mildly enlarged but stable when compared to the previous study. Coronary artery calcifications are evident. There is also valvular prosthesis. The aorta is not abnormally dilated. There is no obvious mediastinal or hilar adenopathy. The sections through the upper abdomen fail to show any sign of an acute abnormality. The bone windows are unremarkable for a fracture or for a destructive lesion. IMPRESSION: 1. The vague parenchymal opacities in the right upper lobe are of uncertain etiology. Considerations and recommendations as above. 2. There is scar formation in the lingula, but there is no evidence for an acute cardiopulmonary abnormality. 3. There is mild cardiomegaly, coronary artery disease, and evidence of a valvular prosthesis. 4. If there is a more recent chest exam available for comparison, it would be helpful. Dictated by: Dictated on workstation # [id number]
--- NOTE | 2021-02-06 15:01 | Diagnostic Imaging Report ---
PROCEDURE: CT abdomen and pelvis without contrast. TECHNIQUE: Multiple contiguous axial images were obtained through the abdomen and pelvis without the use of intravenous contrast. Auto Exposure Controls were utilized during the CT exam to meet ALARA standards for radiation dose reduction. INDICATION: Hematuria weight loss There are no prior CT examinations available for comparison. Both kidneys are atrophic and there is a transplanted kidney in the right lower quadrant. There is no acute abnormality of the transplanted kidney and there is no sign of nephrolithiasis. The urinary bladder is not fully distended but shows no definite abnormality. The prostate gland is not enlarged. There is some distortion of the pericolonic fat near the junction of the ascending colon and transverse colon. This does suggest edema/inflammation and there may be an element of mild colitis present. There are few a diverticula in this area as well and there could be an element of diverticulitis as well. There is no diverticular mass or abscess identified however. There are also a number of diverticula in the sigmoid and descending colon. There is no sign of diverticulitis in this area. The appendix was not well-visualized but there are no indirect signs of acute appendicitis. There is no pelvic mass or free fluid collection noted. The liver, spleen, pancreas, adrenals, aorta and inferior vena cava show no sign of an acute abnormality . The gallbladder is surgically absent. The stomach is filled with particulate matter and difficult to evaluate. The lung bases are clear. The bone windows are unremarkable for fracture or for a destructive lesion. IMPRESSION: 1. Both kidneys are atrophic. There is no evidence for nephrolithiasis or for an acute abnormality of the transplanted kidney in the right lower pelvis. The urinary bladder is grossly unremarkable. 2. The slight distortion of the pericolonic fat near the junction of the ascending and transverse colon does suggest edema/inflammation and may be related to mild acute colitis/diverticulitis. 3. There is no acute abnormality of the abdomen or pelvis noted otherwise. Dictated by: Dictated on workstation # [id number]
== END ==
LOC: RAD FS 12:44
PROVIDERS: ATTEND Family Medicine
DX: N26.1 Atrophy of kidney (terminal) (principal); I51.7 Cardiomegaly; I25.10 Atherosclerotic heart disease of native coronary artery without angina pectoris; R91.1 Solitary pulmonary nodule; Z95.2 Presence of prosthetic heart valve
CPT/HCPCS: 71250; 74176

== ENCOUNTER 2021-05-06 13:16 | Emergency (ER) | payer MEDICARE ==
[~2021-05-06] VITALS: Ht 175.3 cm; Wt 69.9 kg
[2021-05-06 13:29] LABS: BASOPHILS % (AUTO) 0 % (0-10); EOSINOPHILS % (AUTO) 0 % (0-10); HEMATOCRIT 40 % (40-54); HEMOGLOBIN 12.8 g/dL (13.3-17.7); LYMPHOCYTES # (AUTO) 0.6 10^3/uL (1.0-4.0); LYMPHOCYTES % (AUTO) 9 % (12-44); MEAN CORPUSCULAR HEMOGLOBIN 25 pg (25-34); MEAN CORPUSCULAR HGB CONC 32 g/dL (32-36); MEAN CORPUSCULAR VOLUME 79 fL (80-99); MEAN PLATELET VOLUME 9.4 fL (9.0-12.2); MONOCYTES # (AUTO) 0.5 10^3/uL (0.0-1.0); MONOCYTES % (AUTO) 7 % (0-12); NEUTROPHILS # (AUTO) 5.8 10^3/uL (1.8-7.8); NEUTROPHILS % (AUTO) 80 % (42-75); PLATELET COUNT 272 10^3/uL (130-400); WHITE BLOOD COUNT 7.3 10^3/uL (4.3-11.0)
[2021-05-06] MEDS ORDERED: NITROGLYCERIN 0.4 MG SL TABS BTL 25'S SL PRN (13:30)
[2021-05-06] MEDS ORDERED: ASPIRIN 81 MG CHEW (CHILDREN'S ASA) PO ONE (13:30)
[2021-05-06 13:39] LABS: INR 0.9 (0.8-1.4); PROTHROMBIN TIME PATIENT 12.8 SEC (12.2-14.7)
--- NOTE | 2021-05-06 13:46 | Diagnostic Imaging Report ---
INDICATION: Chest pain. TIME OF EXAM: 1:25 PM Correlation is made with prior chest from 09/18/2020. The heart size is stable. There appears to be some mild infiltrate in the right perihilar region as well as the left base. There is no effusion or pneumothorax. IMPRESSION: Minimal bilateral pulmonary infiltrates. Dictated by: Dictated on workstation # [id number]
[2021-05-06 13:51] LABS: SMEAR SCAN COMMENT OK
[2021-05-06 13:54] LABS: POTASSIUM 4.2 MMOL/L (3.6-5.0)
[2021-05-06 13:55] LABS: BILIRUBIN,TOTAL 0.4 MG/DL (0.1-1.0); CALCIUM 10.1 MG/DL (8.5-10.1); CREATININE SERUM 1.14 MG/DL (0.60-1.30); TOTAL PROTEIN 7.6 GM/DL (6.4-8.2)
[2021-05-06 13:56] LABS: ALBUMIN 4.2 GM/DL (3.2-4.5)
--- NOTE | 2021-05-06 13:58 | ED Cardiac General ---
History of Present Illness General Chief Complaint: Chest Pain Stated Complaint: CHEST PAIN Nursing Triage Note: PT ARRIVED BY PRIVATE VEHICLE WITH CHIEF COMPLAINT OF CHEST PAIN. PT STATED ONSET WAS TUESDAY MORNING WHEN HE WOKE UP AROUND 0700. PT LOCALIZED PAIN TO BE AT LOWER STERNUM. PT'S SON STATED HE HAS BEEN IN AND OUT OF IT RECENTLY. PT/SON BOTH STATED HE IS WANTING TO SLEEP A LOT AND IS TIRED. PT ON TUESDAY GOT HIS ST[facility]ID SHOT FROM THE [facility] AT . PT IS A KIDNEY TRANSPLANT PATIENT. PT IS ALERT AND ORIETNED. PT IS ALLERGIC TO OXYCODONE AND STATIN DRUGS. VIALTS WERE DONE, PT WAS HOOKED UP TO THE DIESEL RETROFIT INSTALLER, EKG COMPLETED, IV WAS STARTED WITH BLOOD DRAW AND REPORT WAS GIVEN TO PROVIDER. Source: patient Exam Limitations: no limitations History of Present Illness Date Seen by Provider: May 06, 2021 Time Seen by Provider: 13:16 Initial Comments 75yoM with PMH of HTN, renal transplant, afib on Sotalol coming in for chest pain and palpitations. Started on Tuesday. Had a steroid shot at [facility] for pain management. [place] like his heart was racing to the 160's that resolved afterwards. Has had chest pain radiating to his jaw since then but has improved. Intermittently feeling like his heart is racing. Does endorse some exertional dyspnea. Denies any weakness, diaphoresis, n/v/d, numbness, abd pain, or any other concerns. 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 CASHIER: Yes (324 MG) Allergies and Home Medications Allergies Coded Allergies: oxycodone (Verified Allergy, Unknown, 09/14/20) Patient Home Medication List Home Medication List Reviewed: Yes Doxycycline Hyclate (Doxycycline Hyclate) 100 Mg Tablet, 100 MG PO BID Prescribed by: JASWANT PATEL on 05/06/21 1415 Ondansetron (Ondansetron Odt) 4 Mg Tab.rapdis, 4 MG PO Q6H PRN for NAUSEA/VOMITING Prescribed by: GABRIEL PERKINS on 09/14/20 1401 Promethazine HCl (Promethazine Tablet) 25 Mg Tablet, 25 MG PO Q6H PRN for NAUSEA/VOMITING Prescribed by: DANIELLE STOCK on 09/18/20 213 Review of Systems Review of Systems Constitutional: No chills, No fever EENTM: No Blurred Vision Respiratory: Denies Cough Cardiovascular: Chest Pain Gastrointestinal: Denies Abdominal Pain Genitourinary: Denies Burning Musculoskeletal: no symptoms reported Skin: no symptoms reported Psychiatric/Neurological: No Symptoms Reported Endocrine: No Symptoms Reported Hematologic/Lymphatic: No Symptoms Reported All Other Systems Reviewed Negative Unless Noted: Yes Past Hpbwhks-Yvtjsz-Twiyyc Hx Patient Social History Tobacco Use?: No Use of E-Cig and/or Vaping dev: No Substance use?: No Alcohol Use?: No Pt feels they are or have been: No Immunizations Up To Date First/Initial COVID19 Vaccinat: February 2020 Second COVID19 Vaccination Carlos: March 2020 Third COVID19 Vaccination Date: February 2020 Past Medical History Surgery/Hospitalization HX: Kidney transplant 5 years ago.STROKE HX, CARDIAC ATRERY CLIP, 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 Physical Exam Vital Signs Vital Signs - First Documented 05/06/21 13:17 Temp 36.6 Pulse 64 Resp 14 B/P (MAP) 163/74 (103) Pulse Ox 98 O2 Delivery Room Air Capillary Refill : Less Than 3 Seconds Height, Weight, BMI Height: '" Weight: lbs. oz. kg; 22.00 BMI Method: General Appearance: No Apparent Distress, WD/WN HEENT: PERRL/EOMI, Normal ENT Inspection, Pharynx Normal Neck: Full Range of Motion, Normal Inspection, Non Tender, Supple Respiratory: Chest Non Tender, Lungs Clear, Normal Breath Sounds, No Accessory Muscle Use, No Respiratory Distress Cardiovascular: Regular Rate, Rhythm, No Edema, Normal Peripheral Pulses Gastrointestinal: Normal Bowel Sounds, Non Tender, Soft; No Distended, No Guarding Extremity: Normal Capillary Refill, Normal Inspection, Normal Range of Motion, Non Tender, No Calf Tenderness Neurologic/Psychiatric: Oriented x3, No Motor/Sensory Deficits, Normal Mood/Affect Skin: Normal Color, Warm/Dry Lymphatic: No Adenopathy Progress/Results/Core Measures Results/Orders Lab Results Laboratory Tests Test 05/06/21 13:24 Range/Units White Blood Count 7.3 4.3-11.0 10^3/uL Red Blood Count 5.06 4.30-5.52 10^6/uL Hemoglobin 12.8 L 13.3-17.7 g/dL Hematocrit 40 40-54 % Mean Corpuscular Volume 79 L 80-99 fL Mean Corpuscular Hemoglobin 25 25-34 pg Mean Corpuscular Hemoglobin Concent 32 32-36 g/dL Red Cell Distribution Width 16.1 H 10.0-14.5 % Platelet Count 272 130-400 10^3/uL Mean Platelet Volume 9.4 9.0-12.2 fL Immature Granulocyte % (Auto) 4 % Neutrophils (%) (Auto) 80 H 42-75 % Lymphocytes (%) (Auto) 9 L 12-44 % Monocytes (%) (Auto) 7 0-12 % Eosinophils (%) (Auto) 0 0-10 % Basophils (%) (Auto) 0 0-10 % Neutrophils # (Auto) 5.8 1.8-7.8 10^3/uL Lymphocytes # (Auto) 0.6 L 1.0-4.0 10^3/uL Monocytes # (Auto) 0.5 0.0-1.0 10^3/uL Eosinophils # (Auto) 0.0 0.0-0.3 10^3/uL Basophils # (Auto) 0.0 0.0-0.1 10^3/uL Immature Granulocyte # (Auto) 0.3 H 0.0-0.1 10^3/uL Prothrombin Time 12.8 12.2-14.7 SEC INR Comment 0.9 0.8-1.4 Activated Partial Thromboplast Time 25 24-35 SEC Sodium Level 136 135-145 MMOL/L Potassium Level 4.2 3.6-5.0 MMOL/L Chloride Level 101 98-107 MMOL/L Carbon Dioxide Level 22 21-32 MMOL/L Anion Gap 13 5-14 MMOL/L Blood Urea Nitrogen 28 H 7-18 MG/DL Creatinine 1.14 0.60-1.30 MG/DL Estimat Glomerular Filtration Rate 67 BUN/Creatinine Ratio 25 Glucose Level 167 H 70-105 MG/DL Calcium Level 10.1 8.5-10.1 MG/DL Corrected Calcium 9.9 8.5-10.1 MG/DL Magnesium Level 2.0 1.6-2.4 MG/DL Total Bilirubin 0.4 0.1-1.0 MG/DL Aspartate Amino Transf (AST/SGOT) 17 5-34 U/L Alanine Aminotransferase (ALT/SGPT) 18 0-55 U/L Alkaline Phosphatase 85 40-136 U/L Myoglobin 23.5 10.0-92.0 NG/ML Troponin I < 0.30 <0.30 NG/ML Total Protein 7.6 6.4-8.2 GM/DL Albumin 4.2 3.2-4.5 GM/DL Smear Scan OK My Orders Orders - JASWANT PATEL MD Cbc With Automated Diff (05/06/21:) Magnesium (05/06/21:) Chest 1 View Ap/Pa Only (05/06/21:) Ekg Tracing (05/06/21) Comprehensive Metabolic Panel (05/06/21) Myoglobin Serum (05/06/21:) Protime With Inr (05/06/21) Partial Thromboplastin Time (05/06/21) O2 (05/06/21) Monitor-Rhythm Ecg Trace Only (05/06/21:) Lipid Panel (05/07/21 06:00) Aspirin Chewable Tablet (Baby Aspirin Ch (05/06/21:) Nitroglycerin 0.4 Mg Btl 25's (Nitrostat (05/06/21:) Ed Iv/Invasive Line Start (05/06/21:) Troponin I Fs (05/06/21:) Vital Signs/I&O 05/06/21 13:17 Temp 36.6 Pulse 64 Resp 14 B/P (MAP) 163/74 (103) Pulse Ox 98 O2 Delivery Room Air Blood Pressure Mean: 103 Progress Progress Note : Progress Note 75-year-old male with above history coming in due to chest discomfort. ABCs were intact and vitals are stable on presentation. He took full dose aspirin prior to arrival. Some of the reassuring findings are despite having the discom fort for the past couple days, he has a pretty active job and the pain does not get worse with exertion. Physical exam reassuring with no focal abnormalities. Initial EKG with no ischemic changes. Chest x-ray does show some infiltrates bilaterally, especially given his immunocompromised we will start him on some antibiotics. This could be contributing to his symptoms. He says he has had more of a productive cough lately.. IV was placed and basic labs including cardiac biomarkers ordered and are negative. Given he has an undetectable troponin with consistent pain for 3 days, it is very unlikely he has had a cardiac event. He says similar things happen roughly every 6 months, he has never had a heart attack. He last had a stress test about a year ago which was normal. He has no cardiac stenting despite having had catheterizations. He does have a deicer finisher at follows up with which I recommended continued follow-up. His heart rate is low in the 60s, he is not hypoxic, no signs or symptoms of a DVT, and overall I have a low suspicion for PE. I believe he is stable for discharge with outpatient follow-up. He was sent home with strict return precautions Initial ECG Impression Date: May 06, 2021 Initial ECG Impression Time: 13:22 Initial ECG Rate: 64 Initial ECG Rhythm: Normal Sinus Comment Narrow QRS, normal axis, no significant ST changes or T wave abnormalities Diagnostic Imaging Diagonstic Imaging: Xray (chest) Comments [facility] [place], [place] NAME: SOLIS GUTIERRES [facility] REC#: [id number] PT STATUS: REG ER : 1945 PHYSICIAN: JASWANT PATEL MD ADMIT DATE: 05/06/21/ER FS Draft Date of Exam:05/06/21 CHEST 1 VIEW AP/PA ONLY INDICATION: Chest pain. TIME OF EXAM: 1:25 PM Correlation is made with prior chest from 09/18/2020. The heart size is stable. There appears to be some mild infiltrate in the right perihilar region as well as the left base. There is no effusion or pneumothorax. IMPRESSION: Minimal bilateral pulmonary infiltrates. Dictated on workstation # [id number] Dict: 05/06/21 1344 Trans: 05/06/21 1346 CVB [id number] Interpreted by: AJ MIRANDA MD Electronically signed by: Departure Impression Primary Impression: Chest pain Qualified Codes: R07.9 - Chest pain, unspecified Additional Impression: Pneumonia Qualified Codes: J18.9 - Pneumonia, unspecified organism Disposition: 01 HOME, SELF-CARE Condition: Stable Departure-Patient Inst. Decision time for Depature: 14:10 Referrals: ABIMBOLA ROD MD (PCP) Primary Care Physician Patient Instructions: Chest Pain (DC), Pneumonia, Adult ED Add. Discharge Instructions: Please call your deicer finisher to schedule an appointment as soon as possible for repeat evaluation including possible stress test versus imaging versus catheterization. If you have worsening chest pain or any other concerns then you can please come back to the ER. Scripts Doxycycline Hyclate (Doxycycline Hyclate) 100 Mg Tablet 100 MG PO BID for 7 Days, #14 TAB Prov: JASWANT PATEL MD 05/06/21 JASWANT PATEL MD May 06, 2021 13:58
[2021-05-06] MEDS ORDERED: DOXY100T2 PO (14:15)
[2021-05-06 14:26] VITALS: BP 129/72
== END 2021-05-06 14:27 | disposition home or self-care (01) ==
LOC: EDUNIT# 13:16 → ER FS 13:17
DX: J18.9 Pneumonia, unspecified organism (principal)
CPT/HCPCS: 36415; 71045; 80053; 83735; 83874; 84484; 85025; 85610; 85730; 93005; 93041

== ENCOUNTER 2022-02-15 11:03 | Emergency (ER) | payer MEDICARE ==
[~2022-02-15] VITALS: Ht 175 cm; Wt 69.0 kg
[~2022-02-15 11:03] MED LIST changes: +DOXY100T2 PO
[2022-02-15] MEDS ORDERED: ONDA4TAB11 PO (12:08)
--- NOTE | 2022-02-15 12:09 | ED Cough/URI ---
General Chief Complaint: Cough/Cold/Flu Symptoms Stated Complaint: NAUSEA; MIJARES; GEN ACHING Nursing Triage Note: Patient has presented to ER with cc of waking up with headache, body aches, and chills. He has taken tylenol for his symptoms. Source: patient, family Exam Limitations: no limitations History of Present Illness Date Seen by Provider: Feb 15, 2022 Time Seen by Provider: 11:11 Initial Comments 76-year-old male patient with history of kidney transplant on immunosuppressive treatment complaining of headache, body ache, nasal congestion, mild shortness of breath, sore throat since last night. Patient complaining of 2 episodes of vomiting this morning. Patient denies chest pain, recent diarrhea, urinary symptoms, cough and fever. Patient had sick contact at work last week. Patient had [place] at 4 AM and rated his pain 6/10 and does not want to have pain medication in ER. Patient denies nausea at arrival to ER. Allergies and Home Medications Allergies Coded Allergies: oxycodone (Verified Allergy, Unknown, 09/14/20) Patient Home Medication List Home Medication List Reviewed: Yes Doxycycline Hyclate (Doxycycline Hyclate) 100 Mg Tablet, 100 MG PO BID Prescribed by: JASWANT PATEL on 05/06/21 1415 Ondansetron (Ondansetron Odt) 4 Mg Tab.rapdis, 4 MG PO Q6H PRN for NAUSEA/VOMITING Prescribed by: GABRIEL PERKINS on 09/14/20 1401 Ondansetron (Ondansetron Odt) 4 Mg Tab.rapdis, 4 MG PO TID PRN for NAUSEA-1ST LINE Prescribed by: Yi iniguez on 02/15/22 1208 Promethazine HCl (Promethazine Tablet) 25 Mg Tablet, 25 MG PO Q6H PRN for NAUSEA/VOMITING Prescribed by: DANIELLE STOCK on 09/18/20 2136 Review of Systems Review of Systems Constitutional: see HPI EENTM: see HPI Respiratory: see HPI Cardiovascular: see HPI Gastrointestinal: see HPI Genitourinary: see HPI Musculoskeletal: see HPI Skin: see HPI Psychiatric/Neurological: See HPI Hematologic/Lymphatic: See HPI Immunological/Allergic: see HPI Past Dtkaqer-Pvhoud-Okuwpr Hx Patient Social History Tobacco Use?: No Use of E-Cig and/or Vaping dev: No Substance use?: No Alcohol Use?: No Immunizations Up To Date First/Initial COVID19 Vaccinat: February 2020 Second COVID19 Vaccination Carlos: March 2020 Third COVID19 Vaccination Date: February 2020 Past Medical History Surgery/Hospitalization HX: Kidney transplant 5 years ago.STROKE HX, CARDIAC ATRERY CLIP, 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 oz. 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 without having e real heart murmur) Gastrointestinal: normal bowel sounds, non tender, soft, no organomegaly, no pulsatile mass Extremities: normal range of motion, non-tender, normal inspection Neurologic/Psychiatric: no motor/sensory deficits, alert, oriented x 3 Skin: normal color Lymphatic: no adenopathy Progress/Results/Core Measures Suspected Sepsis SIRS Temperature: Pulse: 69 Respiratory Rate: 16 Blood Pressure 115 /57 Mean: 76 Results/Orders Lab Results Laboratory Tests Test 02/15/22 11:20 Range/Units Influenza Type A (RT-PCR) Not Detected Not Detecte Influenza Type B (RT-PCR) Not Detected Not Detecte SARS-CoV-2 RNA (RT-PCR) Not Detected Not Detecte My Orders Orders - YI INIGUEZ MD Covid 19 Inhouse Test (02/15/22 11:19) Influenza A And B By Pcr (02/15/22 11:19) Isolation Central Supply Req (02/15/22 11:19) Vital Signs/I&O 02/15/22 02/15/22 11:11 12:10 Temp 37.5 37.5 Pulse 69 69 Resp 16 16 B/P (MAP) 115/57 (76) 115/57 Pulse Ox 96 96 O2 Delivery Room Air Room Air Capillary Refill : 2 Blood Pressure Mean: 76 Progress Note : Progress Note Patient with history of kidney transplant 6 years ago and on immunosuppressive treatment had exposure to positive flu at his work last week and complaining of myalgia and headache since last night with nasal congestion and sore throat and 2 episodes of vomiting this morning. Patient was afebrile and had a stable vital signs and physical exam. Patient had negative flu and COVID test. Because of not having a fever or new abnormality in physical exam normal test was done and patient advised to check his temperature and if has fever return to ER for more work-up. Prescription for Zofran was given and advised to continue [place]. Patient and his informed about test results and plan of care and needs to follow-up as needed and all questions was addressed. Departure Impression Primary Impression: Viral syndrome Additional Impression: Nausea & vomiting Qualified Codes: R11.2 - Nausea with vomiting, unspecified Disposition: HOME, SELF-CARE Condition: Stable Departure-Patient Inst. Decision time for Depature: 12:05 Referrals: ABIMBOLA ROD MD (PCP) Primary Care Physician Patient Instructions: Nausea and Vomiting, Adult ED, Viral Syndrome (DC) Add. Discharge Instructions: Take home pain medication([place]) as needed for pain Record your temperature and return to ER if the temperature is >100.4 Follow-up with your primary care physician in 3 to 5 days Return to ER as needed All discharge instructions reviewed with patient and/or family. Voiced understanding. Scripts Ondansetron (Ondansetron Odt) 4 Mg Tab.rapdis 4 MG PO TID PRN for NAUSEA-1ST LINE, #10 TAB Prov: YI INIGUEZ MD 02/15/22 Work/School Note: Work Release Form Date Seen in the Emergency Department: Feb 15, 2022 Return to Work: Feb 18, 2022 YI INIGUEZ MD Feb 15, 2022 12:08
[2022-02-15 12:10] VITALS: BP 115/57
== END 2022-02-15 12:10 | disposition home or self-care (01) ==
LOC: EDUNIT# 11:03 → ER FS 11:04
DX: B34.9 Viral infection, unspecified (principal); R11.2 Nausea with vomiting, unspecified; R51.9 Headache, unspecified; R09.81 Nasal congestion; J02.9 Acute pharyngitis, unspecified; Z94.0 Kidney transplant status; Z20.822 Contact with and (suspected) exposure to COVID-19; Z79.899 Other long term (current) drug therapy
CPT/HCPCS: 87636; 99283

== ENCOUNTER 2022-06-07 15:41 | Emergency (ER) | payer MEDICARE ==
[~2022-06-07] VITALS: Ht 175 cm; Wt 70.0 kg
[2022-06-07 15:59] LABS: BASOPHILS % (AUTO) 0 % (0-10); EOSINOPHILS % (AUTO) 0 % (0-10); HEMATOCRIT 37 % (40-54); HEMOGLOBIN 11.9 g/dL (13.3-17.7); LYMPHOCYTES # (AUTO) 1.3 10^3/uL (1.0-4.0); LYMPHOCYTES % (AUTO) 14 % (12-44); MEAN CORPUSCULAR HEMOGLOBIN 29 pg (25-34); MEAN CORPUSCULAR HGB CONC 32 g/dL (32-36); MEAN CORPUSCULAR VOLUME 92 fL (80-99); MONOCYTES # (AUTO) 0.7 10^3/uL (0.0-1.0); MONOCYTES % (AUTO) 8 % (0-12); NEUTROPHILS # (AUTO) 7.3 10^3/uL (1.8-7.8); NEUTROPHILS % (AUTO) 78 % (42-75); PLATELET COUNT 222 10^3/uL (130-400); WHITE BLOOD COUNT 9.5 10^3/uL (4.3-11.0)
[2022-06-07] MEDS ORDERED: TETANUS,DIPTH,PERTUSS P/F (BOOSTRIX) 0.5 ML VIAL IM ONE (16:00)
[2022-06-07] MEDS ORDERED: AUGMENTIN 875 MG TAB (AMOXICILLIN/CLAVULANATE) PO ONE ×2 (16:00→18:00)
[2022-06-07] MEDS ORDERED: fentaNYL INJ 100 MCG/2 ML AMP IVP ONE (16:00)
--- NOTE | 2022-06-07 16:06 | ED General ---
General Chief Complaint: Bite-Animal/Human/Insect Stated Complaint: L WRIST DOG BITE Nursing Triage Note: Patient has presented to ER with cc of a dog bite at 0800 this morning. Patient states that he was trying to break up his dogs fighting and he got bit by his hound dog. They are his dogs and they had their shots. This afternoon the pain has wosened and he came to ER this morning. Patient reports that he did have to take a nitro glycerin this morning after having some chest pain that went away with the nitro. Source of Information: Patient Exam Limitations: No Limitations History of Present Illness Date Seen by Provider: Jun 07, 2022 Time Seen by Provider: 15:45 Initial Comments This 76-year-old gentleman presents to the emergency room with primary complaint of left wrist pain secondary to a dog bite that occurred at about 0800 this morning. He has a laceration over the dorsum of the left wrist and puncture wounds on the volar aspect. The dogs are his own pets and they are vaccinated. He is due for a tetanus vaccine. Patient did not have much pain initially but pain has been escalating through the afternoon and he is now in distress because of the pain. He also reports having some mild chest pain briefly this morning. He is a renal transplant patient on immunosuppressive medications. Allergies and Home Medications Allergies Coded Allergies: oxycodone (Verified Allergy, Unknown, 09/14/20) Patient Home Medication List Home Medication List Reviewed: Yes Amoxicillin/Potassium Clav (Amox Tr-K Clv 875-125 mg Tab) 875 Mg-125 Mg Tablet, 1 EACH PO BID Prescribed by: MOISÉS ULLOA on 06/07/221717 Doxycycline Hyclate (Doxycycline Hyclate) 100 Mg Tablet, 100 MG PO BID Prescribed by: JASWANT PATEL on 05/06/21 1415 Doxycycline Hyclate (Doxycycline Hyclate) 100 Mg Tablet, 100 MG PO BID Prescribed by: MOISÉS ULLOA on 06/07/221717 Famotidine (Pepcid) 20 Mg Tablet, 20 MG PO BID Prescribed by: MOISÉS ULLOA on 06/07/22 1847 Morphine Sulfate (Morphine Sulfate ER) 15 Mg Tablet.er, 15 MG PO BID PRN for PAIN-MODERATE (5-7) Prescribed by: MOISÉS ULLOA on 06/07/22 1718 Ondansetron (Ondansetron Odt) 4 Mg Tab.rapdis, 4 MG PO Q6H PRN for NAUSEA/VOMITI NG Prescribed by: GABRIEL PERKINS on 09/14/20 1401 Ondansetron (Ondansetron Odt) 4 Mg Tab.rapdis, 4 MG PO TID PRN for NAUSEA-1ST LINE Prescribed by: Yi palma on 02/15/22 1208 Promethazine HCl (Promethazine Tablet) 25 Mg Tablet, 25 MG PO Q6H PRN for NAUSEA/VOMITING Prescribed by: DANIELLE STOCK on 09/18/202135 Review of Systems Review of Systems Constitutional: no symptoms reported EENTM: no symptoms reported Respiratory: no symptoms reported Cardiovascular: see HPI Gastrointestinal: no symptoms reported Genitourinary: no symptoms reported Musculoskeletal: see HPI Skin: see HPI Psychiatric/Neurological: No Symptoms Reported Hematologic/Lymphatic: No Symptoms Reported Immunological/Allergic: no symptoms reported Past Qgnkjye-Sjnqch-Jfwybn Hx Patient Social History Tobacco Use?: No Use of E-Cig and/or Vaping dev: No Substance use?: No Alcohol Use?: No Immunizations Up To Date First/Initial COVID19 Vaccinat: February 2020 Second COVID19 Vaccination Carlos: March 2020 Third COVID19 Vaccination Date: February 2020 Past Medical History Surgery/Hospitalization HX: Kidney transplant 5 years ago.STROKE HX, CARDIAC ATRERY CLIP, 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 Surgeries: Yes Cardiac (Atrial clip), Kidney Transplant, Vascular Surgery (Fistula in the left arm) Respiratory: No Cardiac: Yes Atrial Fibrillation, Hypertension Neurological: Yes Stroke Genitourinary: Yes Renal Failure (Status post renal transplant) Gastrointestinal: Yes Gastroesophageal Reflux Musculoskeletal: No Endocrine: No HEENT: No Cancer: No Psychosocial: No Physical Exam Vital Signs Vital Signs - First Documented 06/07/22 06/07/22 15:50 16:46 Temp 36.5 Pulse 72 Resp 16 B/P (MAP) 106/86 (93) Pulse Ox 100 O2 Delivery Room Air Capillary Refill : Height, Weight, BMI Height: '" Weight: lbs. oz. kg; 22.00 BMI Method: General Appearance: WD/WN, Moderate Distress HEENT: Normal ENT Inspection Neck: Normal Inspection Respiratory: Lungs Clear, Normal Breath Sounds Cardiovascular: Regular Rate, Rhythm, No Edema, No Murmur Gastrointestinal: Non Tender, Soft Extremity: Other (Puncture wound on the volar aspect of the left wrist and 2 cm laceration on the dorsal aspect with oozing blood. There is localized swelling and erythema. Range of motion is decreased by pain. He is able to extend and flex but with decreased rage. 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 Norm as Tested Skin: Warm/Dry, Other (See above) Procedures/Interventions Wound Location: Upper Extremities Other Wound Location Left wrist Wound Length (cm): 2 Wound's Depth, Shape: linear, irregular, sub Q Irrigated w/ Saline (ccs): 200 Betadine Prep?: Yes Suture: Prolene Suture Size: 4-0 Number of Sutures: 1 Sterile Dressing Applied?: Yes Progress/Results/Core Measures Suspected Sepsis SIRS Temperature: Pulse: Respiratory Rate: Laboratory Tests 06/07/22 15:52: White Blood Count 9.5 Blood Pressure 106 /86 Mean: 93 Laboratory Tests 06/07/22 15:52: Creatinine 1.88H, INR Comment 1.0, Platelet Count 222 Results/Orders Lab Results Laboratory Tests Test 06/07/22 15:52 06/07/22 18:16 Range/Units White Blood Count 9.5 4.3-11.0 10^3/uL Red Blood Count 4.05 L 4.30-5.52 10^6/uL Hemoglobin 11.9 L 13.3-17.7 g/dL Hematocrit 37 L 40-54 % Mean Corpuscular Volume 92 80-99 fL Mean Corpuscular Hemoglobin 29 25-34 pg Mean Corpuscular Hemoglobin Concent 32 32-36 g/dL Red Cell Distribution Width 15.9 H 10.0-14.5 % Platelet Count 222 130-400 10^3/uL Mean Platelet Volume 9.0 9.0-12.2 fL Immature Granulocyte % (Auto) 1 % Neutrophils (%) (Auto) 78 H 42-75 % Lymphocytes (%) (Auto) 14 12-44 % Monocytes (%) (Auto) 8 0-12 % Eosinophils (%) (Auto) 0 0-10 % Basophils (%) (Auto) 0 0-10 % Neutrophils # (Auto) 7.3 1.8-7.8 10^3/uL Lymphocytes # (Auto) 1.3 1.0-4.0 10^3/uL Monocytes # (Auto) 0.7 0.0-1.0 10^3/uL Eosinophils # (Auto) 0.0 0.0-0.3 10^3/uL Basophils # (Auto) 0.0 0.0-0.1 10^3/uL Immature Granulocyte # (Auto) 0.1 0.0-0.1 10^3/uL Prothrombin Time 13.4 12.2-14.7 SEC INR Comment 1.0 0.8-1.4 Activated Partial Thromboplast Time 30 24-35 SEC Sodium Level 134 L 135-145 MMOL/L Potassium Level 5.4 H 3.6-5.0 MMOL/L Chloride Level 102 98-107 MMOL/L Carbon Dioxide Level 21 21-32 MMOL/L Anion Gap 11 5-14 MMOL/L Blood Urea Nitrogen 34 H 7-18 MG/DL Creatinine 1.88 H 0.60-1.30 MG/DL Estimat Glomerular Filtration Rate 37 BUN/Creatinine Ratio 18 Glucose Level 146 H 70-105 MG/DL Calcium Level 9.7 8.5-10.1 MG/DL Magnesium Level 1.8 1.6-2.4 MG/DL Myoglobin 39.2 <72.0 NG/ML Troponin I < 0.30 < 0.30 <0.30 NG/ML C-Reactive Protein 1.12 H <0.50 MG/DL My Orders Orders - MOISÉS FUENTES MD Fentanyl Inj (Sublimaze Injection) (06/07/22 16:00) Basic Metabolic Panel (06/07/22 15:50) Cbc With Automated Diff (06/07/22 15:50) Magnesium (06/07/22 15:50) Troponin I Fs (06/07/22 15:50) Ed Iv/Invasive Line Start (06/07/22 15:50) Ekg Tracing (06/07/22 15:50) Monitor-Rhythm Ecg Trace Only (06/07/22 15:50) Wrist 3 View Left (06/07/22 15:50) Dipht,Pertuss(Acell),Tet Adult (Boostrix (06/07/22 16:00) Amoxicillin/Clavulanate Tablet (Augmenti (06/07/22 16:00) Crp Fs (06/07/22 16:01) Ns Iv 500 Ml (Sodium Chloride 0.9%) (06/07/22 16:30) Morphine Injection (Morphine Injection (06/07/22 16:32) Piperacillin Sodium/Tazobactam (Zosyn Vi (06/07/22 17:15) Orphenadrine Inj (Ed Only) (Norflex Inje (06/07/22 18:00) Morphine Injection (Morphine Injection (06/07/22 17:47) Magnesium (06/07/22 17:54) Chest 1 View Ap/Pa Only (06/07/22 17:54) Ekg Tracing (06/07/22 17:54) Myoglobin Serum (06/07/22 17:54) Protime With Inr (06/07/22 17:54) Partial Thromboplastin Time (06/07/22 17:54) Aspirin Chewable Tablet (Baby Aspirin Ch (06/07/22 18:00) Ondansetron Injection (Zofran Injectio (06/07/22 18:00) Lidocaine 2% Viscous 15 Ml (Xylocaine Vi (06/07/22 18:00) Antacid Suspension (Mylanta Suspension (06/07/22 18:00) Troponin I Fs (06/07/22 18:20) Medications Given in ED Current Medications Medications Dose Ordered Sig/Corry Route Start Time Stop Time Status Last Admin Dose Admin Al Hydrox/Mg Hydrox/Simethicone 30 ml ONCE ONCE PO 06/07/22 18:00 06/07/22 18:01 DC 06/07/22 18:06 30 ML Amoxicillin/ Clavulanate Potassium 875 mg ONCE ONCE PO 06/07/22 16:00 06/07/22 16:01 DC 06/07/22 16:02 875 MG Aspirin 324 mg ONCE ONCE PO 06/07/22 18:00 06/07/22 18:01 DC 06/07/22 18:06 324 MG Diphtheria/ Tetanus/Acell Pertussis 0.5 ml ONCE ONCE IM 06/07/22 16:00 06/07/22 16:01 DC 06/07/22 16:01 0.5 ML Fentanyl Citrate 50 mcg ONCE ONCE IVP 06/07/22 16:00 06/07/22 16:01 DC 06/07/22 16:00 50 MCG Lidocaine HCl 15 ml ONCE ONCE PO 06/07/22 18:00 06/07/22 18:01 DC 06/07/22 18:06 15 ML Ondansetron HCl 4 mg ONCE ONCE IVP 06/07/22 18:00 06/07/22 18:01 DC 06/07/22 18:07 4 MG Orphenadrine Citrate 30 mg ONCE ONCE IV 06/07/22 18:00 06/07/22 18:01 DC 06/07/22 17:52 30 MG Piperacillin Sod/ Tazobactam Sod 4.5 gm/Sodium Chloride 100 ml @ 200 mls/hr ONCE ONCE IV 06/07/22 17:15 06/07/22 17:44 DC 06/07/22 17:14 200 MLS/HR Sodium Chloride 500 ml @ 0 mls/hr Q0M ONCE IV 06/07/22 16:30 06/07/22 16:31 DC 06/07/22 16:34 0 MLS/HR Vital Signs/I&O 06/07/22 06/07/22 15:50 16:46 Temp 36.5 Pulse 72 Resp 16 B/P (MAP) 106/86 (93) 120/76 Pulse Ox 100 100 O2 Delivery Room Air Room Air Capillary Refill : Blood Pressure Mean: 93 Progress Note #1: Progress Note Patient was interviewed and examined shortly after arrival. He was found to have a laceration on the dorsum of the wrist and puncture wounds on the volar aspect of the wrist. Pain was first treated with fentanyl 50 mcg which was insufficient. That was followed with morphine 5 mg which significantly calmed his pain. Wounds were irrigated with saline and chlorhexidine using an IV catheter tip and syringe. The laceration on the dorsum of the wrist was approximated with a single loose suture to tuck in the protruding tissues. The ends of the laceration were left open to facilitate draining. The left wrist was then placed in an AlumaFoam splint for comfort which further reduced his pain. Patient was initially treated with Augmentin for infection prophylaxis. However, after further consideration, a dose of IV Zosyn was administered due to his significant risk factors including immunocompromise state, delayed presentation after wound, and the depth of puncture wound with evidence of deep tissue gas on x-ray. His escalating pain seems to be too early to be related to significant infection, but it may be related to contusion of bone and tendon structures and/or nerve irritation. See discharge instructions for further discussion and medications prescribed. Tetanus booster was administered. Progress Note #2: Time: 19:00 Progress Note During antibiotic administration patient developed severe chest pain, belching, and abdominal discomfort. Repeat EKG and troponin were obtained. Both were unremarkable. Patient was given Zofran and a GI cocktail with resolution of his pain. See discharge instructions for further discussion and treatment. ECG Initial ECG Impression Date: Jun 07, 2022 Initial ECG Impression Time: 16:07 Initial ECG Rate: 63 Initial ECG Rhythm: Normal Sinus Initial ECG Intervals: Normal Initial ECG Impression: Normal Comment Normal sinus rhythm with no ST elevation or depression. No abnormal intervals or axis deviation. EKG : EKG Time: 18:04 Rate: 64 Rhythm: Normal Sinus Intervals: Normal ECG Impression: Normal Comment Normal sinus rhythm with no ST elevation or depression. No abnormal intervals or axis deviation. Diagnostic Imaging Diagonstic Imaging: Xray Plain Films/CT/US/NM/MRI: other Comments Left wrist x-ray was viewed by me. Soft tissue air was noted without any bony injury identified by my interpretation. Radiologist's report was also reviewed as below: NAME: SOLIS GUTIERRES [facility] REC#: [id number] PT STATUS: REG ER : 1945 PHYSICIAN: MOISÉS FUENTES MD ADMIT DATE: 06/07/22/ER FS Draft Date of Exam:06/07/22 WRIST 3 VIEW LEFT INDICATION: Injury of the left wrist. COMPARISON: None available. TECHNIQUE: Three views of the left wrist. FINDINGS: Soft tissue gas along the radial aspect of the wrist is likely from puncture wounds associated with reported dog bite. There is no acute fracture. No unintended radiopaque foreign body. 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 IMPRESSION: No acute osseous abnormality about the left wrist. Dictated on workstation # [id number] Dict: 06/07/22 1609 Trans: 06/07/22 1611 [id number] Interpreted by: MANPREET BALTAZAR MD Departure Impression Primary Impression: Dog bite of left wrist Qualified Codes: S61.552A - Open bite of left wrist, initial encounter; W54.0XXA - Bitten by dog, initial encounter Additional Impressions: Immunocompromised Acute on chronic renal failure Qualified Codes: N17.9 - Acute kidney failure, unspecified; N18.9 - Chronic kidney disease, unspecified Chest pain Qualified Codes: R07.9 - Chest pain, unspecified Gastroesophageal reflux Qualified Codes: K21.9 - Gastro-esophageal reflux disease without esophagitis Disposition: HOME, SELF-CARE Condition: Improved Departure-Patient Inst. Decision time for Depature: 18:40 Referrals: ABIMBOLA ROD MD (PCP) Primary Care Physician Patient Instructions: Acid Reflux and Gastroesophageal Reflux Disease in Adults, Animal Bites ED Add. Discharge Instructions: Because of your immunocompromised state and the deep puncture nature of these wounds, you are at higher risk for wound infection. Take your first dose of doxycycline tonight. Start Augmentin (amoxicillinclavulanic acid) in the morning. You may take your long-acting morphine twice daily and use your usual hydrocodone for breakthrough pain. Use the splint for comfort but do not keep your wrist continuously bound in the splint all day. Take the splint off several times a day to inspect your wrist and let it breathe. Elevation to the level of your heart and 20-minute intervals of icing may also be used to help with pain and swelling. If you develop symptoms concerning for worsening infection such as progressive redness of the skin, puslike drainage, progressive escalation of pain despite medications, severe swelling, fevers over 100 degrees, etc. please return promptly to the emergency room. If you are concerned about significant infection, it may be best to present to a facility with a hand surgeon if possible. Drink plenty of water to stay well-hydrated and continue your usual medications. You may shower and wash your hands but do not submerge your wrist until the suture is removed. Return in 7 or 8 days to have the suture removed. While you are taking these antibiotics, add Pepcid to your Protonix (pantoprazole) to help with stomach irritation and acid reflux. All discharge instructions reviewed with patient and/or family. Voiced understanding. Scripts Famotidine (Pepcid) 20 Mg Tablet 20 MG PO BID, #30 TAB Prov: MOISÉS FUENTES MD 06/07/22 Amoxicillin/Potassium Clav (Amox Tr-K Clv 875-125 mg Tab) 875 Mg-125 Mg Tablet 1 EACH PO BID, #20 TAB Prov: MOISÉS FUENTES MD 06/07/22 Doxycycline Hyclate (Doxycycline Hyclate) 100 Mg Tablet 100 MG PO BID, #20 TAB 0 Refills Prov: MOISÉS FUENTES MD 06/07/22 Morphine Sulfate (Morphine Sulfate ER) 15 Mg Tablet.er 15 MG PO BID PRN for PAIN-MODERATE (5-7), #8 TAB Prov: MOISÉS FUENTES MD 06/07/22 MOISÉS FUENTES MD Jun 07, 2022 16:06
--- NOTE | 2022-06-07 16:11 | Diagnostic Imaging Report ---
WRIST 3 VIEW LEFT INDICATION: Injury of the left wrist. COMPARISON: None available. TECHNIQUE: Three views of the left wrist. FINDINGS: Soft tissue gas along the radial aspect of the wrist is likely from puncture wounds associated with reported dog bite. There is no acute fracture. No unintended radiopaque foreign body. 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 IMPRESSION: No acute osseous abnormality about the left wrist. Dictated by: Dictated on workstation # [id number]
[2022-06-07 16:23] LABS: BUN/CREATININE RATIO 18; CALCIUM 9.7 MG/DL (8.5-10.1); CARBON DIOXIDE 21 MMOL/L (21-32); CHLORIDE 102 MMOL/L (98-107); CREATININE SERUM 1.88 MG/DL (0.60-1.30); GFR ESTIMATED 37; GLUCOSE 146 MG/DL (70-105); MAGNESIUM 1.8 MG/DL (1.6-2.4); POTASSIUM 5.4 MMOL/L (3.6-5.0); SODIUM 134 MMOL/L (135-145)
[2022-06-07] MEDS ORDERED: NS IV 500 ML 500 ML IV ONE (16:30)
[2022-06-07] MEDS ORDERED: morphine INJ 10 MG/ML 1ML (SYR OR VIAL) IVP STA ×2 (16:32→17:47)
[2022-06-07 16:46] VITALS: BP 120/76
[2022-06-07] MEDS ORDERED: PIPERACILLIN SODIUM/TAZOBACTAM 4.5 GM in NS (IVPB) 100 ML IV ONE (17:15)
[2022-06-07] MEDS ORDERED: MORP-68 PO (17:18)
[2022-06-07] MEDS ORDERED: AMOX1TAB12 PO (17:18)
[2022-06-07] MEDS ORDERED: DOXY100T2 PO (17:18)
[2022-06-07] MEDS ORDERED: ONDANSETRON 4 MG/2 ML (SDV) Z0FRAN IVP ONE (18:00)
[2022-06-07] MEDS ORDERED: LIDOCAINE 2% VISCOUS 15 ML UDC PO ONE (18:00)
[2022-06-07] MEDS ORDERED: ASPIRIN 81 MG CHEW (CHILDREN'S ASA) PO ONE (18:00)
[2022-06-07] MEDS ORDERED: ANTACID SUSP 30 ML UDC (MYLANTA) PO ONE (18:00)
[2022-06-07] MEDS ORDERED: ORPHENADRINE 60 MG/2 ML (NORFLEX) AMP (ED ONLY) IV ONE (18:00)
--- NOTE | 2022-06-07 18:08 | Diagnostic Imaging Report ---
HISTORY: Chest pain. COMPARISON: 05/06/2021. TECHNIQUE: Frontal view of the chest. FINDINGS: Lung volumes are mildly low. There are mildly prominent interstitial markings in the lungs bilaterally. There is airspace opacity in the left lung base. Findings appear similar to the prior exam and are likely chronic. No new consolidation is seen. There is no pleural effusion or pneumothorax. The cardiac silhouette is stable in size. IMPRESSION: 1. Pulmonary opacities appear chronic, with no new consolidation seen. Dictated by: Dictated on workstation # [id number]
[2022-06-07 18:13] LABS: PROTHROMBIN TIME PATIENT 13.4 SEC (12.2-14.7)
[2022-06-07 18:24] LABS: MAGNESIUM 1.8 MG/DL (1.6-2.4)
[2022-06-07] MEDS ORDERED: FAMO-119 PO (18:47)
== END 2022-06-07 18:50 | disposition home or self-care (01) ==
LOC: EDUNIT# 15:41 → ER FS 15:43
DX: S61.532A Puncture wound without foreign body of left wrist, initial encounter (principal); S61.512A Laceration without foreign body of left wrist, initial encounter; K21.9 Gastro-esophageal reflux disease without esophagitis; I12.9 Hypertensive chronic kidney disease with stage 1 through stage 4 chronic kidney disease, or unspecified chronic kidney disease; N18.9 Chronic kidney disease, unspecified; N17.9 Acute kidney failure, unspecified; D84.9 Immunodeficiency, unspecified; Z94.0 Kidney transplant status; Z88.5 Allergy status to narcotic agent; Z23 Encounter for immunization; Z79.60 Long term (current) use of unspecified immunomodulators and immunosuppressants; W54.0XXA Bitten by dog, initial encounter
CPT/HCPCS: 36415; 71045; 73110; 80048; 83735; 83874; 84484; 85025; 85610; 85730; 86141; 90715; 93005